=== PATIENT | male | born 1955 | race Caucasian/White ===

== ENCOUNTER 2020-01-02 15:29 | Outpatient (CLI) | payer OTHER, SELFPAY ==
--- NOTE | ~2020-01-02 | US_ITS ---
EXAMINATION: US art doppler w press LE BI DATE: 01/02/2020 15:21 INDICATION: Lower limb claudication TECHNIQUE: Segmental pressures and plethysmographic and Doppler waveforms of the brachial and lower e xtremity arteries were obtained. COMPARISON: None. FINDINGS: Right and left brachial artery pressures of 122 mm Hg and 125 mm Hg, respectively, are concordant (no rmal difference <= 30 mmHg). The right and left high-thigh pressure indices are 1.42 and 1.24, respec tively (normal > 1.2). The right ankle-brachial index (EILEEN) is 1.20 (normal >= 0.9-1). The right great toe-brachial index (T BI) is 0.47 (normal >= 0.6-0.8). The right lower extremity segmental pressure gradients are normal (n ormal gradients <= 20-30 mmHg between adjacent levels on the same leg or the same levels on the two l egs). Arterial waveforms are biphasic with brisk systolic upstrokes throughout. The left EILEEN is 0.97. The left TBI is 0.32. The left lower extremity segmental pressure gradients are decreased at the left dorsalis pedis artery and the contralateral right dorsalis pedis artery. Arter ial waveforms are biphasic at the left common femoral, superficial femoral and popliteal arteries. Pe lvis a tardus waveforms with dampened, mildly delayed systolic peaks at the left posterior tibial and dorsalis pedis arteries. IMPRESSION: 1. 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 Reviewed, dictated and finalized at location A. HANGER IMPRESSION: 1. Arterial occlusive disease in both lower limbs with mildly decreased right a nd moderately decreased left TBI's.
== END 2020-01-02 15:30 | disposition home or self-care (01) ==
PROVIDERS: PCP Family Medicine; Visit Provider Internal Medicine Cardiovascular Disease
DX: I73.9 Peripheral vascular disease, unspecified (principal)
CPT/HCPCS: 93923

== ENCOUNTER 2020-05-22 16:45 | Emergency (ER) | payer OTHER, SELFPAY ==
--- NOTE | ~2020-05-22 | XR_ITS ---
EXAMINATION: XR chest 1V portable INDICATION: Fever and chills TECHNIQUE: Portable AP chest at 1750 hours COMPARISON: 07/02/2016 FINDINGS: A 1.3 cm nodular opacity projects in the left lung base. There is no pleural effusion or pn eumothorax. The heart size is normal. There appear to be coronary artery stents. The visualized osseo us structures are unremarkable. IMPRESSION: 1. Nodular opacity of the left lung base which may be infectious or inflammatory. Recommend followup radiographs in 10-14 days after appropriate therapy to evaluate for improvement/resolution. Reviewed, dictated and finalized at location A. IMPRESSION: 1. Nodular opacity of the left lung base which may be infectious or inflammator y. Recommend followup radiographs in 10-14 days after appropriate therapy to ev aluate for improvement/resolution.
--- NOTE | 2020-05-22 17:04 | ECG_ITS ---
Measurements Intervals [place] Rate: 83 P: 31 TN: 136 QRS: 27 QRSD: 84 T: 60 QT: 336 QTc: 395 Interpretive Statements SINUS RHYTHM NORMAL ECG Electronically Signed On 05-22-2020 19:32:09 CDT by Jacky Ruiz D.O.
[2020-05-22 17:05] VITALS: BP 128/72; PULSE 87; RESP 18; TEMP 38.7; O2SAT 98
[2020-05-22 17:32] LABS: Basophils Percent Auto 0.2 % (0.2-1.2); Eosinophils Absolute Auto 0.1 K/mm3 (0-0.3); Eosinophils Percent Auto 0.8 % (0-4.4); Hematocrit 45.1 % (42.0-52.0); Hemoglobin 15.1 g/dL (14.0-18.0); Immature Granulocyte Absolute 0.08 K/mm3 (0.00-0.031); Immature Granulocyte Percent A 0.6 % (0-0.5); Lymphocytes Absolute Auto 0.54 K/mm3 (0.9-3.2); Lymphocytes Percent Auto 4.1 % (18.3-44.2); Mean Corpuscular HGB Conc 33.5 g/dl (32-36); Mean Corpuscular Hemoglobin 30.1 pg (26-34); Mean Platelet Volume 9.7 fl (7.4-10.4); Monocytes Absolute Auto 0.7 K/mm3 (0.1-0.6); Monocytes Percent Auto 5.1 % (2.6-8.5); Neutrophils Absolute Auto 11.7 K/mm3 (1.3-6.7); Neutrophils Percent Auto 89.2 % (45.5-73.1); Platelet Count Result 259 k/mm3 (150-375); Red Blood Count 5.01 M/mm3 (4.6-6.20); Red Cell Distribution Width 12.5 % (11.5-14.5); White Blood Count 13.2 K/mm3 (4.5-10.0)
[2020-05-22 17:39] LABS: Add Urine Microscopic? NO; Appearance Urine Clear (Clear); Bilirubin Urine Negative (Negative); Blood Urine Negative (Negative); Color Urine Yellow (Yellow); Glucose Urine UA Negative (Negative); Ketones Urine Negative (Negative); Leukocyte Esterase Ur Negative LEU/UL (Negative); Nitrate Urine Negative (Negative); Protein Urine Negative (Negative); Specific Grav Ur 1.018 (1.001-1.035); Urobilinogen Urine Negative mg/dL (<2.0)
[2020-05-22 17:41] LABS: INR 1.2; Prothrombin Time 14.5 Seconds (11.1-14.7)
[2020-05-22 17:42] LABS: Partial Thromboplastin Time 39.4 SECONDS (22.3-36.8)
[2020-05-22 17:47] LABS: Alanine Aminotransferase 21 U/L (4-50); Albumin Level 4.4 g/dL (3.5-5.1); Alkaline Phosphatase 95 U/L (38-126); Aspartate Amino Transferase 27 U/L (17-59); Bilirubin,Total 0.4 mg/dL (0.2-1.3); Blood Urea Nitrogen 14 mg/dL (9-20); CRP 3.9 mg/dL (<1.0); Calcium 8.8 mg/dL (8.4-10.2); Carbon Dioxide 26 mmol/L (22-30); Chloride 100 mmol/L (98-107); Estimated CRCL calculation 74 ml/min; Estimated Glomerular Filt Rate > 60; Glucose 111 mg/dL (75-110); Potassium 3.9 mmol/L (3.4-5.0); Sodium 134 mmol/L (137-145)
[2020-05-22 17:56] LABS: Troponin I < 0.012 ng/mL (0.000-0.034)
--- NOTE | 2020-05-22 18:17 | ED.FEVER ---
HPI - Fever General Chief Complaint: Fever Stated Complaint: fever, chills, Time Seen by Provider: 05/22/20 17:54 History of Present Illness HPI Narrative: Fever for about the past 24 hours. No associated symptoms. Does report hematuria without dysuria about 1 week ago. He has h/o BPH and UTI. There have been cases of COVID-[address] of employment. No cough, congestion, SOB, nausea, vomiting, abdomianl pain, rash. Related Data Home Medications Medication Instructions Recorded Confirmed amlodipine 05/22/20 clopidogrel 05/22/20 lisinopril 05/22/20 metformin mg 05/22/20 rosuvastatin mg 05/22/20 Allergies Allergy/AdvReac Type Severity Reaction Status Date / Time alcohol Allergy Severe Unknown Verified 05/22/20 17:11 ibuprofen Allergy Severe Unknown Verified 05/22/20 17:11 meperidine Allergy Severe DAUGHTER Verified 05/22/20 17:11 HAD GENETIC ADVERSE REACTION morphine Allergy Severe SYSTEM Verified 05/22/20 17:11 STARTED TO SHUT DOWN ANESTHESIA SEP 2012 AdvReac Intermediate BP Uncoded 05/22/20 17:11 ELEVATION--STILL ELEVATED Review of Systems Review of Systems: All systems reviewed & are unremarkable except as noted in HPI and below PMFSH Social History Social History Gender identity (if verbalized by the patient): Male Exam Const: General: healthy appearing, no acute distress and alert Orientation/consciousness: patient oriented x3 HENMT: Head: normal to inspection Neck: Neck: normal visual inspection and no lymphadenopathy Chest: Chest palpation & inspection: no tenderness Resp: Effort & Inspection: normal respiratory effort Auscultation: clear to auscultation bilaterally, no rales, no rhonchi and wheezes left lower Cardio: Jugular venous distension: no JVD Rate: regular rate Rhythm: regular rhythm Heart sounds: no murmurs GI: Inspection: non-distended GI Palp: Yes Soft to palpation and No Tenderness to palpation present (GI) Skin: General skin exam: normal color Neuro: General: patient oriented x3 and moves all extremities Speech: normal speech Extrem: General: no edema Psych: Appearance: well kempt Affect: normal affect Course Vital Signs Vital signs: Vital Signs Temperature 38.7 C H 05/22/20 17:05 Pulse Rate 87 05/22/20 17:05 Respiratory Rate 18 05/22/20 17:05 Blood Pressure 128/72 05/22/20 17:05 Pulse Oximetry 98 05/22/20 17:05 Temperature 38.7 C H 05/22/20 17:05 Pulse Rate 87 05/22/20 17:05 Respiratory Rate 18 05/22/20 17:05 Blood Pressure 128/72 05/22/20 17:05 Pulse Oximetry 98 05/22/20 17:05 MDM - Fever MDM Narrative Medical decision making narrative: CXR shows nodular opacities concerning infection. I will start azithromycin and swab for COVID-19 Differential Diagnosis Differential diagnosis: Likely community acquired pneumonia Medical Records Attestation: I reviewed the patient's medical records. Lab Data Attestation: I reviewed the patient's lab results. Result diagrams: 05/22/20 17:18 05/22/20 17:18 Labs: Lab Results 05/22/20 05/22/20 05/22/20 Range/Units 17:18 17:18 17:18 WBC 13.2 H (4.5-10.0) K/mm3 RBC 5.01 (4.6-6.20) M/mm3 Hgb 15.1 (14.0-18.0) g/dL Hct 45.1 (42.0-52.0) % MCV 90.0 (80-100) fl MCH 30.1 (26-34) pg MCHC 33.5 (32-36) g/dl RDW 12.5 (11.5-14.5) % Plt Count 259 (150-375) k/mm3 MPV 9.7 (7.4-10.4) fl Immature Gran % (Auto) 0.6 H (0-0.5) % Neut % (Auto) 89.2 H (45.5-73.1) % Lymph % (Auto) 4.1 L (18.3-44.2) % [place] % (Auto) 5.1 (2.6-8.5) % Eos % (Auto) 0.8 (0-4.4) % Baso % (Auto) 0.2 (0.2-1.2) % Lymph # (Auto) 0.54 L (0.9-3.2) K/mm3 [place] # (Auto) 0.7 H (0.1-0.6) K/mm3 Eos # (Auto) 0.1 (0-0.3) K/mm3 Baso # (Auto) 0.0 (0.0-0.1) K/mm3 Abs Immat Gran (auto) 0.08 H (0.00-0.
[2020-05-22] MEDS: AZITHROMYCIN 250 MG TABLET 500 MG PO (18:22)
[2020-05-22 18:24] VITALS: BP 139/88; PULSE 90; RESP 18; TEMP 36.8; O2SAT 97
[2020-05-24 18:54] LABS: SARS-CoV-2 RNA PCR Negative
== END 2020-05-22 20:03 | disposition home or self-care (01) ==
PROVIDERS: Emergency Medicine; Emergency Provider Emergency Medicine; PCP Family Medicine
DX: J18.9 Pneumonia, unspecified organism (principal); Z20.828 Contact with and (suspected) exposure to other viral communicable diseases; N40.0 Benign prostatic hyperplasia without lower urinary tract symptoms; Z87.440 Personal history of urinary (tract) infections
CPT/HCPCS: 36415; 71045; 80053; 81003; 83605; 84484; 85025; 85610; 85730; 86140; 87040; 87635; 93005; 99284; A9270; C9803; U0003

== ENCOUNTER 2022-04-11 08:27 | Outpatient (CLI) | payer MEDICARE, SELFPAY ==
--- NOTE | ~2022-04-11 | US_ITS ---
EXAMINATION: US art doppler w press LE BI DATE: 04/11/2022 10:05 INDICATION: Peripheral arterial occlusive disease presenting with claudication. Peripheral vascular d isease risk factors of diabetes, hypercholesterolemia and prior smoking. TECHNIQUE: Segmental pressures and plethysmographic and Doppler waveforms of the brachial and lower e xtremity arteries were obtained. COMPARISON: None. FINDINGS: Right and left brachial artery pressures of 122 mm Hg and 114 mm Hg, respectively, are concordant (no rmal difference <= 30 mmHg). The right and left high-thigh pressure indices are 1.11 and 1.04, respec tively (normal > 1.2). The right ankle-brachial index (EILEEN) is 0.89 (normal >= 0.9-1). The right great toe-brachial index (T BI) is 0.20 (normal >= 0.6-0.8). The right lower extremity segmental pressure gradients are increased between the right above and [id number] popliteal arteries (normal gradients <= 20-30 mmHg betwee n adjacent levels on the same leg or the same levels on the two legs). Arterial waveforms are biphasi c with brisk systolic upstrokes throughout the arteries of the right lower limb. The left EILEEN is 0.70. The left TBI is 0.04. The left lower extremity segmental pressure gradients are increased between the left dorsalis pedis artery and each of the left [id number] popliteal arter y, left posterior tibial artery and contralateral right dorsalis pedis artery. Arterial waveforms are biphasic with mildly delayed upstrokes at the left posterior tibial and dorsalis pedis arteries and with brisk systolic upstrokes at the more proximal arteries of the left lower limb. IMPRESSION: 1. Peripheral arterial occlusive disease with mildly decreased bilateral ABIs and high thigh pressure indices but with severely decreased left and moderate to severely decreased right toe brachial indic es. Reviewed, dictated and finalized at location A. IMPRESSION: 1. Peripheral arterial occlusive disease with mildly decreased bilateral ABIs a nd high thigh pressure indices but with severely decreased left and moderate to severely decreased right toe brachial indices.
== END 2022-04-11 08:28 | disposition home or self-care (01) ==
PROVIDERS: PCP Family Medicine; Visit Provider Internal Medicine Cardiovascular Disease
DX: I70.221 Atherosclerosis of native arteries of extremities with rest pain, right leg (principal)
CPT/HCPCS: 93923

== ENCOUNTER 2022-06-12 08:11 | Outpatient (CLI) | payer MEDICARE, SELFPAY ==
[2022-06-12 08:27] LABS: Basophils Percent Auto 0.4 % (0.2-1.2); Eosinophils Absolute Auto 0.3 K/mm3 (0-0.3); Eosinophils Percent Auto 4.3 % (0-4.4); Hematocrit 45.3 % (42.0-52.0); Hemoglobin 14.9 g/dL (14.0-18.0); Immature Granulocyte Absolute 0.03 K/mm3 (0.00-0.031); Immature Granulocyte Percent A 0.4 % (0-0.5); Lymphocytes Absolute Auto 1.92 K/mm3 (0.9-3.2); Lymphocytes Percent Auto 24.2 % (18.3-44.2); Mean Corpuscular HGB Conc 32.9 g/dl (32-36); Mean Corpuscular Hemoglobin 29.9 pg (26-34); Mean Corpuscular Volume 90.8 fl (80-100); Mean Platelet Volume 9.4 fl (7.4-10.4); Monocytes Absolute Auto 0.7 K/mm3 (0.1-0.6); Monocytes Percent Auto 9.2 % (2.6-8.5); Neutrophils Absolute Auto 4.9 K/mm3 (1.3-6.7); Neutrophils Percent Auto 61.5 % (45.5-73.1); Platelet Count Result 273 k/mm3 (150-375); Red Blood Count 4.99 M/mm3 (4.6-6.20); Red Cell Distribution Width 12.7 % (11.5-14.5); White Blood Count 7.9 K/mm3 (4.5-10.0)
[2022-06-12 08:37] LABS: Alanine Aminotransferase 25 U/L (6-50); Albumin Level 4.6 g/dL (3.5-5.1); Alkaline Phosphatase 66 U/L (38-126); Anion Gap 5 mmol/L (8-16); Aspartate Amino Transferase 26 U/L (17-59); Bilirubin,Total 0.5 mg/dL (0.2-1.3); Blood Urea Nitrogen 15 mg/dL (9-20); Calcium 8.8 mg/dL (8.4-10.2); Carbon Dioxide 31 mmol/L (22-30); Chloride 101 mmol/L (98-107); Estimated Glomerular Filt Rate > 60; Glucose 129 mg/dL (65-110); Potassium 4.2 mmol/L (3.4-5.0); Sodium 137 mmol/L (137-145)
== END 2022-06-12 08:12 | disposition home or self-care (01) ==
PROVIDERS: PCP Family Medicine; Visit Provider Internal Medicine Cardiovascular Disease
DX: I73.9 Peripheral vascular disease, unspecified (principal); Z51.81 Encounter for therapeutic drug level monitoring; Z79.899 Other long term (current) drug therapy
CPT/HCPCS: 36415; 80053; 85025

== ENCOUNTER 2022-09-04 09:03 | Outpatient (CLI) | payer MEDICARE, SELFPAY ==
[2022-09-04 09:44] LABS: Basophils Percent Auto 0.5 % (0.2-1.2); Eosinophils Absolute Auto 0.3 K/mm3 (0-0.3); Eosinophils Percent Auto 3.4 % (0-4.4); Hematocrit 45.8 % (42.0-52.0); Immature Granulocyte Absolute 0.05 K/mm3 (0.00-0.031); Immature Granulocyte Percent A 0.6 % (0-0.5); Lymphocytes Absolute Auto 2.08 K/mm3 (0.9-3.2); Lymphocytes Percent Auto 26.4 % (18.3-44.2); Mean Corpuscular HGB Conc 32.8 g/dl (32-36); Mean Corpuscular Hemoglobin 29.9 pg (26-34); Mean Corpuscular Volume 91.2 fl (80-100); Mean Platelet Volume 9.7 fl (7.4-10.4); Monocytes Absolute Auto 0.8 K/mm3 (0.1-0.6); Monocytes Percent Auto 9.5 % (2.6-8.5); Neutrophils Absolute Auto 4.7 K/mm3 (1.3-6.7); Neutrophils Percent Auto 59.6 % (45.5-73.1); Platelet Count Result 244 k/mm3 (150-375); Red Blood Count 5.02 M/mm3 (4.6-6.20); Red Cell Distribution Width 12.3 % (11.5-14.5); White Blood Count 7.9 K/mm3 (4.5-10.0)
[2022-09-04 09:53] LABS: Alanine Aminotransferase 36 U/L (6-50); Albumin Level 4.4 g/dL (3.5-5.1); Alkaline Phosphatase 68 U/L (38-126); Anion Gap 11 mmol/L (8-16); Aspartate Amino Transferase 30 U/L (17-59); Bilirubin,Total 0.5 mg/dL (0.2-1.3); Blood Urea Nitrogen 20 mg/dL (9-20); Calcium 8.9 mg/dL (8.4-10.2); Carbon Dioxide 29 mmol/L (22-30); Chloride 98 mmol/L (98-107); Estimated Glomerular Filt Rate > 60; Glucose 170 mg/dL (65-110); Potassium 4.2 mmol/L (3.4-5.0); Sodium 138 mmol/L (137-145)
== END 2022-09-04 09:04 | disposition home or self-care (01) ==
PROVIDERS: PCP Family Medicine; Visit Provider Internal Medicine Cardiovascular Disease
DX: Z01.812 Encounter for preprocedural laboratory examination (principal); I73.9 Peripheral vascular disease, unspecified; I10 Essential (primary) hypertension
CPT/HCPCS: 36415; 80053; 85025

== ENCOUNTER 2022-09-18 00:18 | Emergency (ER) | payer MEDICARE, SELFPAY ==
[2022-09-18 00:27] VITALS: BP 173/94; PULSE 78; RESP 18; TEMP 36.3; O2SAT 100
--- NOTE | 2022-09-18 01:05 | ED.GENADULT ---
HPI - General Adult General Chief complaint: Unspecified Stated complaint: Post/op complications Time Seen by Provider: 09/18/22 01:05 History of Present Illness HPI narrative: Patient is a 67-year-old male presenting with groin swelling. Patient states that he recently had angioplasty and they entered in his left groin. This was approximately 1 week ago. Patient noticed swelling in his left groin a couple days afterwards so he was seen in the clinic and they told him to keep an eye on it. The bruising has resolved but the patient states that the swelling worsened again tonight so he came in for evaluation. States that the area feels full and uncomfortable but denies outright pain. No numbness or weakness. Denies chest pain or shortness of breath. Denies further complaints. Related Data Home Medications Medication Instructions Recorded Confirmed amlodipine 10 mg tablet 05/22/20 clopidogrel 75 mg tablet 05/22/20 lisinopril 5 mg tablet 05/22/20 metformin 500 mg tablet mg 05/22/20 carvedilol 12.5 mg tablet mg 09/18/22 09/18/22 evolocumab 420 mg/3.5 mL mg subcut 09/18/22 subcutaneous wearable injector (Repatha Pushtronex) rivaroxaban 2.5 mg tablet (Xarelto) mg 09/18/22 Allergies Allergy/AdvReac Type Severity Reaction Status Date / Time alcohol Allergy Severe Unknown Verified 09/18/22 01:05 ibuprofen Allergy Severe Unknown Verified 09/18/22 01:05 meperidine Allergy Severe DAUGHTER Verified 09/18/22 01:05 HAD GENETIC ADVERSE REACTION morphine Allergy Severe SYSTEM Verified 09/18/22 01:05 STARTED TO SHUT DOWN ANESTHESIA SEP 2012 AdvReac Intermediate BP Uncoded 09/18/22 01:05 ELEVATION--STILL ELEVATED Review of Systems Review of Systems: All systems reviewed & are unremarkable except as noted in HPI and below PMFSH Social History Social History Gender identity (if verbalized by the patient): Male Exam Narrative: GENERAL: Well-appearing, well-nourished, and in no acute distress. HEAD: Normocephalic, atraumatic. EYES: PERRLA and EOMI. ENT: Nares clear, no rhinorrhea or epistaxis. Mucous membranes moist. NECK: Supple. CHEST: Clear to auscultation. No respiratory distress. HEART: Regular rate and rhythm. No murmur heard. Normal peripheral pulses. ABDOMEN: Soft, nontender, nondistended, normal active bowel sounds. EXTREMITIES: swelling in left groin, nontender, mild overlying erythema, no ecchymoses, SKIN: Warm, dry, no rash. NEURO: No focal deficits. Alert and oriented x3. PSYCH: Normal mood and affect. Course Course Emergency Course: Patient is a 67-year-old male presenting with left groin pain in the setting of recent lower extremity angioplasty. Vitals are within normal limits. Exam is remarkable for the above. He is neurovascularly intact. As it is overnight, we do not have ultrasound techs for ultrasound to evaluate for pseudoaneurysm. We can schedule him for outpatient ultrasound in 5 hours when the imaging center opens. I spoke with his circulation assistant's office who agrees with this plan. Patient provided with an order for outpatient duplex. He is scheduled for the 7:30 AM appointment slot. Patient and his voiced understanding and are agreeable with the plan. Appropriate return precautions given. Patient discharged in stable condition. Vital Signs Vital signs: Vital Signs Temperature 97.3 F L 09/18/22 00:27 Pulse Rate 78 09/18/22 00:27 Respiratory Rate 18 09/18/22 00:27 Blood Pressure 173/94 H 09/18/22 00:27 Pulse Oximetry 100 09/18/22 00:27 Oxygen Delivery Room Air 09/18/22 00:27 Temperature 97.3 F L 09/18/22 00:27 Pulse Rate 78 09/18/22 00:27 Respiratory Rate 18 09/18/22 00:27 Blood Pressure 173/94 H 09/18/22 00:27 Pulse Oximetry 100 09/18/22 00:27 Oxygen Delivery Room Air 09/18/22 00:27 Medical Decision Making Vital Signs Vital Si
== END 2022-09-18 02:33 | disposition home or self-care (01) ==
PROVIDERS: Emergency Provider Emergency Medicine; PCP Family Medicine
DX: R22.2 Localized swelling, mass and lump, trunk (principal); Z98.62 Peripheral vascular angioplasty status
CPT/HCPCS: 93926; 99281

== ENCOUNTER 2022-09-18 08:52 | Outpatient (CLI) | payer MEDICARE, OTHER, SELFPAY ==
--- NOTE | ~2022-09-18 | US_ITS ---
EXAMINATION: US arterial duplex [facility] DATE: 09/18/2022 09:32 INDICATION: Left groin swelling post recent catheterization. TECHNIQUE: Multiple grayscale and Doppler ultrasound images of the left groin were obtained. COMPARISON: None FINDINGS: Left common femoral, femoral and profunda femoral veins appears patent with normal directional flow a nd venous waveforms. The left common femoral, superficial femoral and profunda femoral arteries appea r normal with triphasic waveforms with brisk systolic upstrokes. No pseudoaneurysm. Suggestion of ayana e subcutaneous edema at the region of concern. No abnormal masses or fluid collections identified. IMPRESSION: 1. No pseudoaneurysm, abnormal masses or hematoma at the region of concern. Reviewed, dictated and finalized at location A.
== END 2022-09-18 08:53 | disposition home or self-care (01) ==
PROVIDERS: PCP Family Medicine; Visit Provider Internal Medicine Cardiovascular Disease
DX: R19.09 Other intra-abdominal and pelvic swelling, mass and lump (principal); M79.89 Other specified soft tissue disorders
CPT/HCPCS: 93926

== ENCOUNTER 2023-07-20 00:44 | Day surgery (SDC) | payer MEDICARE, SELFPAY ==
[2023-07-13 09:34] VITALS: BMI 27.0
[2023-07-20 09:31] VITALS: BP 136/75; PULSE 61; RESP 20; TEMP 36.2; O2SAT 99
--- NOTE | 2023-07-20 09:38 | P.PNAN_ITS ---
Anes - Initial Pre Proc Eval Procedure: Operation Date: 07/20/23 10:45 Proposed Procedures p Screening Colonoscopy - Barry Wills MD Date/Time: 07/20/23 09:38 Surgeon: Barry Wills MD Pre Op Diagnosis: neoplasm screening Patient Data Age: 68 Gender: M Height: 1.7 m Weight: 74.6 kg Last Vital Signs Temp 36.2 C L 07/20/23 09:31 Pulse 61 07/20/23 09:31 Resp 20 07/20/23 09:31 BP 136/75 07/20/23 09:31 Pulse Ox 99 07/20/23 09:31 O2 Del Method Room Air 07/20/23 09:31 Allergies Allergy/AdvReac Type Severity Reaction Status Date / Time alcohol Allergy Severe Other Verified 07/20/23 09:29 ibuprofen Allergy Severe Other Verified 07/20/23 09:29 meperidine Allergy Severe DAUGHTER Verified 07/20/23 09:29 HAD GENETIC ADVERSE REACTION morphine Allergy Severe SYSTEM Verified 07/20/23 09:29 STARTED TO SHUT DOWN ANESTHESIA SEP 2012 Allergy Intermediate BP Uncoded 07/20/23 09:29 ELEVATION--STILL ELEVATED Home Medications Medication Instructions Recorded Confirmed Type amlodipine 10 mg tablet 10 mg PO DAILY 05/22/20 07/13/23 History clopidogrel 75 mg tablet 75 mg PO DAILY 05/22/20 07/20/23 History lisinopril 5 mg tablet 5 mg PO DAILY 05/22/20 07/13/23 History metformin 500 mg tablet 500 mg PO DAILY 05/22/20 07/13/23 History carvedilol 12.5 mg tablet 25 mg PO BID 09/18/22 07/13/23 History rosuvastatin 40 mg tablet 40 mg PO DAILY 07/13/23 07/13/23 History Patient hx anesthesia problems: none Family hx anesthesia problems: none Results Review: All pre-operative results and documents have been reviewed as part of the pre- operative evaluation. [facility] [place] Past Medical History Medical History (Updated 07/20/23 @ 09:38 by Mauro Rivera MD) CAD (coronary artery disease) Myocardial infarct Surgical History Surgical History (Updated 07/20/23 @ 09:38 by Mauro Rivera MD) History of coronary artery stent placement Social History Social History Years smoked: 30 Smoking status: Former smoker Tobacco type: cigarettes Alcohol intake: current Substance use: never Substance use type: does not use Living arrangements: with family Gender identity (if verbalized by the patient): Male Spiritual care concerns: No Anes - Eval Final PreProcedure Day of Procedure 07/20/23 09:38 Patient weight: normal Heart: regular rate and rhythm Lungs: clear to auscultation Airway: Mallampati scale class II Neurological: alert and oriented Last oral intake: >/= 8 hours ASA classification: III Emergent: no Anesthetic plan: proceed Anesthesia type and monitoring: general GIVS and standard monitoring Results Review: All pre-operative results and documents have been reviewed as part of the pre- operative evaluation. Informed Consent: The patient's anesthetic plan and its attendant risks and benefits were discussed with the patient/family/POA. Questions were solicited and answers provided to the satisfaction of the patient/family/POA.
--- NOTE | 2023-07-20 09:42 | PM.HPGS ---
History of Present Illness History of Present Illness Consent: Risks, benefits, and alternatives have been discussed and questions answered. Patient agrees to proceed with procedure. Chief complaint: neoplasm screening Narrative: Karri Hadley is a 68 year old male Referred for colon cancer screening. Review of Systems Review of Systems: All systems reviewed & are unremarkable except as noted in HPI and below PMFSH Past Medical History Medical History CAD (coronary artery disease) Myocardial infarct Surgical History Surgical History History of coronary artery stent placement Social History Social History Years smoked: 30 Smoking status: Former smoker Tobacco type: cigarettes Alcohol intake: current Substance use: never Substance use type: does not use Living arrangements: with family Gender identity (if verbalized by the patient): Male Spiritual care concerns: No Meds Home Medications and Allergies Home Medications Medication Instructions Recorded Confirmed Type amlodipine 10 mg tablet 10 mg PO DAILY 05/22/20 07/13/23 History clopidogrel 75 mg tablet 75 mg PO DAILY 05/22/20 07/20/23 History lisinopril 5 mg tablet 5 mg PO DAILY 05/22/20 07/13/23 History metformin 500 mg tablet 500 mg PO DAILY 05/22/20 07/13/23 History carvedilol 12.5 mg tablet 25 mg PO BID 09/18/22 07/13/23 History rosuvastatin 40 mg tablet 40 mg PO DAILY 07/13/23 07/13/23 History Allergies Allergy/AdvReac Type Severity Reaction Status Date / Time alcohol Allergy Severe Other Verified 07/20/23 09:29 ibuprofen Allergy Severe Other Verified 07/20/23 09:29 meperidine Allergy Severe DAUGHTER Verified 07/20/23 09:29 HAD GENETIC ADVERSE REACTION morphine Allergy Severe SYSTEM Verified 07/20/23 09:29 STARTED TO SHUT DOWN ANESTHESIA SEP 2012 Allergy Intermediate BP Uncoded 07/20/23 09:29 ELEVATION--STILL ELEVATED Vital Signs Vital Signs - 24 hr 07/20/23 09:31 Temperature 36.2 C L Pulse Rate 61 Respiratory Rate 20 Blood Pressure 136/75 Pulse Oximetry 99 Oxygen Delivery Room Air Exam Const: General: alert Orientation/consciousness: patient oriented x3 Resp: Auscultation: clear to auscultation bilaterally Cardio: Rhythm: regular rhythm GI: GI Palp: Yes Soft to palpation and No Tenderness to palpation present (GI) Neuro: General: patient oriented x3 Assessment and Plan Assessment and plan (1) Colon cancer screening: Code(s): Z12.11 - Encounter for screening for malignant neoplasm of colon Status: Acute Assessment and Plan: Colonoscopy with possible biopsy or polypectomy or cautery or injection of substances.
[2023-07-20] MEDS: LACTATED RINGERS 1,000 ML 150 ML IV CONT (09:43)
[2023-07-20 09:47] LABS: Glucose Point of Care 94 mg/dl (65-105)
[2023-07-20 10:24] VITALS: BP 106/68; PULSE 61; RESP 22; O2SAT 97
[2023-07-20 10:34] VITALS: BP 105/67; PULSE 68; RESP 29; O2SAT 98
[2023-07-20 10:44] VITALS: BP 118/76; PULSE 63; RESP 19; O2SAT 99
== END 2023-07-20 10:50 | disposition home or self-care (01) ==
PROVIDERS: PCP Family Medicine; Visit Provider Internal Medicine Gastroenterology
PROC: 0DJD8ZZ Inspection of Lower Intestinal Tract, Via Natural or Artificial Opening Endoscopic (ICD-10-PCS; CPT 45378; principal; 2023-07-20 10:45)
DX: Z12.11 Encounter for screening for malignant neoplasm of colon (principal); K64.8 Other hemorrhoids; I25.10 Atherosclerotic heart disease of native coronary artery without angina pectoris; I25.2 Old myocardial infarction; E88.09 Other disorders of plasma-protein metabolism, not elsewhere classified; Z87.891 Personal history of nicotine dependence; Z79.02 Long term (current) use of antithrombotics/antiplatelets; Z79.84 Long term (current) use of oral hypoglycemic drugs; Z95.5 Presence of coronary angioplasty implant and graft
CPT/HCPCS: G0121; 82948; J2704; J7120

== ENCOUNTER 2023-12-18 08:01 | Emergency (ER) | payer MEDICARE, SELFPAY ==
--- NOTE | ~2023-12-18 | XR_ITS ---
EXAMINATION: XR thoracic spine 3V DATE: 12/18/2023 08:39 INDICATION: Mid to lower thoracic spine pain post fall TECHNIQUE: One AP, lateral and lateral swimmer's views of the thoracic spine were obtained. COMPARISON: None. FINDINGS: 7 degrees thoracic levocurvature. Mild thoracic kyphosis. Chronic appearing mild anterior wedging at T6-T8 with intervening moderate disc height loss. There is mild disc height loss throughout much of t he remaining thoracic spine. No acute-appearing fractures identified. Visualized portion of the lungs are clear with no pleural effusion or pneumothorax. Heart size is normal. IMPRESSION: 1. Mild to moderate mid thoracic predominant spondylosis. 2. Mild with thoracic kyphosis and mild levocurvature with chronic appearing mild anterior wedging of a few mid thoracic vertebral bodies. Reviewed, dictated and finalized at location A. LATORY COMPLIANCE SPECIALIST IMPRESSION: 1. Mild to moderate mid thoracic predominant spondylosis. 2. Mild with thoracic kyphosis and mild levocurvature with chronic appearing mi ld anterior wedging of a few mid thoracic vertebral bodies.
--- NOTE | 2023-12-18 08:05 | ED.GENADULT ---
HPI - General Adult General Chief complaint: Back Pain/Injury Stated complaint: BACK INJURY Source: patient, RN notes reviewed and old records reviewed Mode of arrival: ambulatory Limitations: no limitations History of Present Illness HPI narrative: 5-year-old male presents to [facility] with complaint of mid to lower back pain that started yesterday of cough. Patient states slipped on ice and hit back on concrete step. Patient taking naproxen with no relief. MD complaint: Back pain Onset (ago): day(s) (1) Location: back Severity: moderate Quality: sharp Pain Consistency: constant Treatments prior to arrival: NSAID Related Data Home Medications Medication Instructions Recorded Confirmed amlodipine 10 mg tablet 10 mg PO DAILY 05/22/20 12/18/23 clopidogrel 75 mg tablet 75 mg PO DAILY 05/22/20 12/18/23 lisinopril 5 mg tablet 5 mg PO DAILY 05/22/20 12/18/23 metformin 500 mg tablet 500 mg PO DAILY 05/22/20 12/18/23 carvedilol 12.5 mg tablet 25 mg PO BID 09/18/22 12/18/23 rosuvastatin 40 mg tablet 40 mg PO DAILY 07/13/23 12/18/23 cilostazol 50 mg tablet 50 mg PO BID 12/18/23 12/18/23 empagliflozin 25 mg tablet 25 mg PO DAILY 12/18/23 12/18/23 (Jardiance) Allergies Allergy/AdvReac Type Severity Reaction Status Date / Time alcohol Allergy Severe Other Verified 07/20/23 09:29 ibuprofen Allergy Severe Other Verified 07/20/23 09:29 meperidine Allergy Severe DAUGHTER Verified 07/20/23 09:29 HAD GENETIC ADVERSE REACTION morphine Allergy Severe SYSTEM Verified 07/20/23 09:29 STARTED TO SHUT DOWN ANESTHESIA SEP 2012 Allergy Intermediate BP Uncoded 07/20/23 09:29 ELEVATION--STILL ELEVATED Review of Systems Constitutional: Constitutional: Reports no additional constitutional complaints, Denies body ache(s), Denies chills, Denies fatigue, Denies fever(s) and Denies headache(s) Eyes: Eyes: Reports no additional eye complaints and Denies blurry vision ENT: Reports system reviewed and no additional complaints, except as documented, Denies vertigo, Denies dizziness, Denies ear discharge, Denies otalgia, Denies facial pain, Denies headache(s), Denies nasal congestion, Denies nasal discharge, Denies sinus pain, Denies sinus pressure and Denies sore throat Cardiovascular: Cardiovascular: Reports no additional cardiovascular complaints, Denies chest pain, Denies chest pain at rest, Denies rapid heart rate and Denies dyspnea Respiratory: Respiratory: Reports no additional respiratory complaints, Denies chest congestion, Denies cough, Denies pain on inspiration, Denies pain with cough and Denies dyspnea Gastrointestinal: Gastrointestinal: Denies abdominal pain, Denies diarrhea, Denies nausea and Denies vomiting Musculoskeletal: Musculoskeletal: Reports back pain Integumentary/Breasts: Skin/Breast: Denies rash Neurologic: Reports system reviewed and no additional complaints, except as documented, Denies vertigo, Denies dizziness and Denies headache(s) Endocrine: Endocrine: Denies fatigue [facility] Past Medical History Medical History CAD (coronary artery disease) Myocardial infarct Surgical History Surgical History History of coronary artery stent placement Social History Social History Years smoked: 30 Smoking status: Former smoker Tobacco type: cigarettes Alcohol intake: current Substance use: never Substance use type: does not use Living arrangements: with family Gender identity (if verbalized by the patient): Male Spiritual care concerns: No Comments At the time of my signature, I reviewed and agree with the nursing past medical, surgical, social, and family history. There is no relevant family history pertinent to the patient complaint. Exam Const: General: cooperative, healthy appearing, no
[2023-12-18 08:11] VITALS: BP 121/80; PULSE 61; RESP 16; TEMP 36.5; O2SAT 99
== END 2023-12-18 09:03 | disposition home or self-care (01) ==
PROVIDERS: Emergency Provider Registered Nurse; PCP Family Medicine
DX: S30.0XXA Contusion of lower back and pelvis, initial encounter (principal); W00.0XXA Fall on same level due to ice and snow, initial encounter; I25.10 Atherosclerotic heart disease of native coronary artery without angina pectoris; I25.2 Old myocardial infarction; Z95.5 Presence of coronary angioplasty implant and graft; Z87.891 Personal history of nicotine dependence
CPT/HCPCS: 72072; 99213; G0463

== ENCOUNTER 2024-10-02 08:59 | Emergency (ER) | payer MEDICARE, SELFPAY ==
--- NOTE | ~2024-10-02 | US_ITS ---
Limited Abdominal Sonogram: Real-time sonographic imaging of the right upper quadrant was performed. Clinical History: Abdominal pain, cholelithiasis Findings: The liver appears echogenic, with no evidence of mass lesion or bile duct dilatation. Main portal vein demonstrates normal direction of flow. The gallbladder is contracted, with echogenic gal lstones present. No definite gallbladder wall thickening. The common bile duct measures 5 mm. The vi sualized pancreas, aorta, and IVC are unremarkable. Impression: Diffuse fatty infiltration of the liver. Cholelithiasis. Reviewed, dictated and finalized at location M. TESTER Impression: Diffuse fatty infiltration of the liver. Cholelithiasis.
--- NOTE | ~2024-10-02 | CT_ITS ---
EXAMINATION: CT abdomen pelvis w con DATE: 10/02/2024 10:15 INDICATION: Right upper quadrant abdominal pain. Diarrhea. TECHNIQUE: Computed tomography (CT) of the abdomen and pelvis was performed with 100 mL Omnipaque 350 intravenous contrast. Automated exposure control and iterative reconstruction technique were employe d. The dose-length product was 515.56 mGy-cm. COMPARISON: CT abdomen and pelvis 10/02/2012 FINDINGS: The visualized portions of the lung bases are clear without pneumonia or pleural effusion. The heart size is normal. There are coronary artery calcifications. There is a trace pericardial effu ernie. There is a small sliding hiatal hernia. The liver and spleen are normal. There are gallstones i n the gallbladder, which is normal in size. The pancreas is normal. There is chronic thickening of th e adrenal glands, likely benign. There are cysts in the kidneys measuring up to 6.5 cm on the left. T he prostate is moderately enlarged. There are no dilated loops of bowel. The appendix is normal. Ther e are no pathologically enlarged lymph nodes. There is no free intraperitoneal fluid. There is calcif ied atherosclerosis of the aorta and many of the other arteries. There is severe lower lumbar spondyl osis. IMPRESSION: 1. Small sliding hiatal hernia. 2. Cholelithiasis. Reviewed, dictated and finalized at location A. SETTER
[2024-10-02 09:06] VITALS: BP 150/81; PULSE 70; RESP 16; TEMP 36.6; O2SAT 99
--- NOTE | 2024-10-02 09:07 | ED.ABDPAIN ---
HPI - Abdominal Pain General Chief Complaint: Abdominal Pain Stated Complaint: RUQ pain Time Seen by Provider: 10/02/24 09:01 Source: patient Mode of arrival: ambulatory Limitations: no limitations History of Present Illness HPI narrative: Patient is a 69 y/o female who presents to the ED with c/o right mid/ upper abdominal pain. Patient reports pain has been fairly constant over the last 5 days. Seems to be worse at night. He has been taking naproxen for the pain with some relief. Denies aggravation with eating. Reports diarrhea over the last 5 days, denies nausea, vomiting, fevers. He notes chronic issues with urination/frequent UTIs related to previous prostate surgeries, but denies current dysuria, hematuria. Denies hx of kidney stones. Related Data Home Medications Medication Instructions Recorded Confirmed amlodipine 10 mg tablet 10 mg PO DAILY 05/22/20 09/30/24 clopidogrel 75 mg tablet 75 mg PO DAILY 05/22/20 09/30/24 lisinopril 5 mg tablet 5 mg PO DAILY 05/22/20 09/30/24 metformin 500 mg tablet 500 mg PO DAILY 05/22/20 09/30/24 carvedilol 12.5 mg tablet 25 mg PO BID 09/18/22 09/30/24 rosuvastatin 40 mg tablet 40 mg PO DAILY 07/13/23 09/30/24 cilostazol 50 mg tablet 50 mg PO BID 12/18/23 09/30/24 Allergies Allergy/AdvReac Type Severity Reaction Status Date / Time alcohol Allergy Severe Other Verified 07/09/24 11:01 ibuprofen Allergy Severe Other Verified 07/09/24 11:01 meperidine Allergy Severe DAUGHTER Verified 07/09/24 11:01 HAD GENETIC ADVERSE REACTION morphine Allergy Severe SYSTEM Verified 07/09/24 11:01 STARTED TO SHUT DOWN ANESTHESIA SEP 2012 Allergy Intermediate BP Uncoded 07/09/24 11:01 ELEVATION--STILL ELEVATED Review of Systems Review of Systems: All systems reviewed & are unremarkable except as noted in HPI. All systems reviewed & are unremarkable except as noted in HPI and below PMFSH Past Medical History Medical History BPH (benign prostatic hyperplasia) CAD (coronary artery disease) Diabetes Hyperlipidemia Hypertension Myocardial infarct Neuropathy Peripheral vascular disease Proteinuria Surgical History Surgical History History of coronary artery stent placement Family History Family History Son Diabetes mellitus Social History Social History Years smoked: 30 Smoking status: Former smoker Tobacco type: cigarettes Alcohol intake: current Substance use: never Substance use type: does not use Do You Feel Safe in your Home?: Yes Lack of Transportation: No Lack of Food: Never True Current Housing: I Have Housing Concerned About Future Housing: No Difficulty Paying Gas/Electric Bills: No Difficulty Paying for Meds: No Currently Unemployed: No Education: Trade/Vocational Certificate Difficulty w/ Childcare or Family Care: No Living arrangements: with family Gender identity (if verbalized by the patient): Male Sexual Orientation (if Verbalized by the Patient): Straight or Heterosexual Spiritual care concerns: No Exam Narrative: GENERAL: Well appearing, well-nourished, non-toxic, in no acute distress. HEAD: Normocephalic, atraumatic. RESPIRATORY: Airway patent, respirations nonlabored. Clear to auscultation bilaterally, no rales, rhonchi, wheezing. CARDIOVASCULAR: Regular rate and rhythm without murmurs, rubs, or gallops. ABDOMINAL: Soft, TTP in RUQ, R mid abdomen, no significant epigastric or RLQ pain. Nondistended. Normoactive BS. MUSCULOSKELETAL: Moves all extremities. No gross deformities. SKIN: Warm, dry, normal color. NEURO: A&O X3. Speech clear. Cranial nerves II-XII grossly intact. Steady gait. No ataxic movements. PSYCHIATRIC: Appropriate mood and affect. Normal interaction. Course Vital Signs Vital signs: Vital Signs Temperature 98 F 10/02/24 09:06 Pulse Rate 70 10/02/24 09:06 Respiratory Rate 16 10/02/24 09:06 Blood Pressure 150/81 H 10/02/24 09:06 Pulse Oximetry 99 10/02/24 09:06 Temperature 98 F 10/02/24 09:06 Pulse Rate 65 10/02/24 11:01 Respiratory Rate 16 10/02/24 11:01 Blood Pressure 147/86 H 10/02/24 11:01 Pulse Oximetry 97 10/02/24 11:01 MDM - Abdominal Pain MDM Narrative Medical decision making narrative: Patient presented to ED with 5 day history of right mid to upper abdominal pain. Associated with diarrhea, no other significant symptoms. Vital signs are stable upon arrival. Patient is in no acute distress. He did not want anything for pain in the ED. Laboratory studies are fairly unremarkable. No leukocytosis or anemia. Blood glucose is mildly elevated to 312 on CMP. Patient does have history of diabetes and is on metformin. No evidence of DKA. Normal LFTs and lipase. Urinalysis with trace ketones, small amount of blood, no signs of infection. CT scan of abdomen/ pelvis was obtained and showing cholelithiasis, no evidence of cholecystitis. RUQ US obtained and no evidence of cholecystitis. Sx's consistent with biliary colic. Discussed lab and imaging findings with patient, low-fat diet, symptomatic control of pain, recommended to have close f/u with gen surg for further evaluation and potential future cholecystectomy. Discussed strict return precautions, signs and symptoms of cholecystitis. Patient voiced understanding, in agreement plan, feels comfortable discharge home. Will send short course of tramadol home for more severe pain. Discharged in stable condition. Medical Records Attestation: I reviewed the patient's medical records. Lab Data Attestation: I reviewed the patient's lab results. 10/02/24 09:22 10/02/24 09:22 Labs: Lab Results 10/02/24 10/02/24 Range/Units 09:15 09:22 WBC 6.0 (4.5-10.0) K/mm3 RBC 4.78 (4.6-6.20) M/mm3 Hgb 14.5 (14.0-18.0) g/dL Hct 43.2 (42.0-52.0) % MCV 90.4 (80-100) fl MCH 30.3 (26-34) pg MCHC 33.6 (32-36) g/dl RDW 11.9 (11.5-14.5) % Plt Count 206 (150-375) k/mm3 MPV 9.4 (7.4-10.4) fl Immature Gran % (Auto) 0.5 (0-0.5) % Neut % (Auto) 65.3 (45.5-73.1) % Lymph % (Auto) 21.7 (18.3-44.2) % [place] % (Auto) 8.5 (2.6-8.5) % Eos % (Auto) 3.5 (0-4.4) % Baso % (Auto) 0.5 (0.2-1.2) % Lymph # (Auto) 1.30 (0.9-3.2) K/mm3 [place] # (Auto) 0.5 (0.1-0.6) K/mm3 Eos # (Auto) 0.2 (0-0.3) K/mm3 Baso # (Auto) 0.0 (0.0-0.1) K/mm3 Abs Immat Gran (auto) 0.03 (0.00-0.031) K/mm3 Absolute Neuts (auto) 3.9 (1.3-6.7) K/mm3 Absolute Nucleated RBC 0.000 (0.0-0.012) K/mm3 Nucleated RBC % 0.0 (0.0-0.2) % Sodium 135 L (137-145) mmol/L Potassium 4.0 (3.4-5.0) mmol/L Chloride 99 (98-107) mmol/L Carbon Dioxide 29 (22-30) mmol/L Anion Gap 7 (4-12) mmol/L BUN 12 D (9-20) mg/dL Creatinine 0.80 (0.7-1.3) mg/dL Estim Creat Clear Calc 69 ml/min Estimated GFR > 60 (59 - ) Glucose 312 H (65-110) mg/dL Calcium 9.1 (8.4-10.2) mg/dL Total Bilirubin 0.6 (0.2-1.3) mg/dL AST 31 (17-59) U/L ALT 27 (6-50) U/L Alkaline Phosphatase 67 (38-126) U/L Total Protein 7.0 (6.3-8.2) g/dL Albumin 4.3 (3.5-5.1) g/dL Lipase 65 (23-300) U/L Urine Color Dark yellow (Yellow) Urine Appearance Clear (Clear) Urine pH 6.0 (5.0-9.0) Ur Specific [place] 1.024 (1.001-1.035) Urine Protein 1+ H (Negative) mg/dL Urine Glucose (UA) 3+ H (Negative) mg/dL Urine Ketones Trace H (Negative) mg/dL Ur Blood (Man) Negative (Negative) Urine Nitrate Negative (Negative) Urine Bilirubin Negative (Negative) Urine Urobilinogen 1.0 (<2.0) mg/dL Leukocyte Esterase Rfl Trace H (Negative) DIGNA/UL Urine RBC 3-5 H (0-2) /hpf Urine WBC 0-5 (0-3) /hpf Ur Squamous Epith Cells None seen (Few) /hpf Urine Bacteria None seen /hpf Urine Casts 0-2 Imaging Data Attestation: I personally reviewed and interpreted this imaging study as follows: Radiologist's impression: ITS Impressions Abdomen/Pelvis CT 10/02/24 10:20 IMPRESSION: 1. Small sliding hiatal hernia. 2. Cholelithiasis. Abdomen Ultrasound 10/02/24 11:07 Impression: Diffuse fatty infiltration of the liver. Cholelithiasis. Discharge Plan Discharge Clinical Impression: Biliary colic Cholelithiasis Qualifiers: Cholelithiasis location: gallbladder Cholecystitis presence: without cholecystitis Biliary obstruction: without biliary obstruction Qualified Code(s): K80.20 - Calculus of gallbladder without cholecystitis without obstruction Patient Disposition: Home, Self-Care Condition: Stable Instructions: Antibiotic Form, Biliary Colic (ED), Gallstones (ED), Low Fat Diet (ED) Additional Instructions: Your imaging showed evidence of gallstones. Recommend following low-fat diet, continuing Tylenol/ naproxen as needed for pain. Utilize tramadol as needed for more severe pain. Follow-up with general surgery for further evaluation and possible future gallbladder removal. Call office to make appointment. Return to the ED if you experience worsening or severe pain, unable to keep down food or drink, vomiting blood, persistent fevers, or any other symptoms of concern. Prescriptions: New tramadol 50 mg tablet 50 mg PO Q6H PRN (Reason: pain) Qty: 15 0RF No Action cilostazol 50 mg tablet 50 mg PO BID rosuvastatin 40 mg tablet 40 mg PO DAILY metformin 500 mg tablet 500 mg PO DAILY clopidogrel 75 mg tablet 75 mg PO DAILY amlodipine 10 mg tablet 10 mg PO DAILY lisinopril 5 mg tablet 5 mg PO DAILY carvedilol 12.5 mg tablet 25 mg PO BID Follow-up/Referrals: Sean,MD Onel [Primary Care Provider] - Jf Mckeon MD [Physician] - (GENERAL SURGERY) Time of Disposition: 11:13
[2024-10-02 09:27] LABS: Basophils Percent Auto 0.5 % (0.2-1.2); Eosinophils Absolute Auto 0.2 K/mm3 (0-0.3); Eosinophils Percent Auto 3.5 % (0-4.4); Hematocrit 43.2 % (42.0-52.0); Hemoglobin 14.5 g/dL (14.0-18.0); Immature Granulocyte Absolute 0.03 K/mm3 (0.00-0.031); Immature Granulocyte Percent A 0.5 % (0-0.5); Lymphocytes Percent Auto 21.7 % (18.3-44.2); Mean Corpuscular HGB Conc 33.6 g/dl (32-36); Mean Corpuscular Hemoglobin 30.3 pg (26-34); Mean Corpuscular Volume 90.4 fl (80-100); Mean Platelet Volume 9.4 fl (7.4-10.4); Monocytes Absolute Auto 0.5 K/mm3 (0.1-0.6); Monocytes Percent Auto 8.5 % (2.6-8.5); Neutrophils Absolute Auto 3.9 K/mm3 (1.3-6.7); Neutrophils Percent Auto 65.3 % (45.5-73.1); Platelet Count Result 206 k/mm3 (150-375); Red Blood Count 4.78 M/mm3 (4.6-6.20); Red Cell Distribution Width 11.9 % (11.5-14.5)
[2024-10-02 09:31] LABS: Add Urine Microscopic? YES; Appearance Urine Clear (Clear); Bacteria Urine None Seen /hpf; Bilirubin Urine Negative (Negative); Blood Urine Negative (Negative); Color Urine Dark Yellow (Yellow); Glucose Urine UA 3+ mg/dL (Negative); Ketones Urine Trace mg/dL (Negative); Leukocyte Esterase Ur Trace LEU/UL (Negative); Nitrate Urine Negative (Negative); Non Pathogenic Casts 0-2; Protein Urine 1+ mg/dL (Negative); Specific Grav Ur 1.024 (1.001-1.035); Squamous Epithelial Cell Urine None Seen /hpf (Few); WBC Urine 0-5 /hpf (0-3)
[2024-10-02 09:39] LABS: Alanine Aminotransferase 27 U/L (6-50); Albumin Level 4.3 g/dL (3.5-5.1); Alkaline Phosphatase 67 U/L (38-126); Anion Gap 7 mmol/L (4-12); Aspartate Amino Transferase 31 U/L (17-59); Bilirubin,Total 0.6 mg/dL (0.2-1.3); Blood Urea Nitrogen 12 mg/dL (9-20); Calcium 9.1 mg/dL (8.4-10.2); Carbon Dioxide 29 mmol/L (22-30); Chloride 99 mmol/L (98-107); Estimated CRCL calculation 69 ml/min; Estimated Glomerular Filt Rate > 60; Glucose 312 mg/dL (65-110); Lipase 65 U/L (23-300); Sodium 135 mmol/L (137-145)
[2024-10-02 10:30] VITALS: BP 146/96; PULSE 72; RESP 18; O2SAT 98
[2024-10-02 11:01] VITALS: BP 147/86; PULSE 65; RESP 16; O2SAT 97
== END 2024-10-02 11:26 | disposition home or self-care (01) ==
PROVIDERS: Emergency Provider Physician Assistant; PCP Internal Medicine
DX: K80.20 Calculus of gallbladder without cholecystitis without obstruction (principal); I25.10 Atherosclerotic heart disease of native coronary artery without angina pectoris; I10 Essential (primary) hypertension; I25.2 Old myocardial infarction; E11.40 Type 2 diabetes mellitus with diabetic neuropathy, unspecified; E11.51 Type 2 diabetes mellitus with diabetic peripheral angiopathy without gangrene; I73.9 Peripheral vascular disease, unspecified; E78.5 Hyperlipidemia, unspecified; N40.0 Benign prostatic hyperplasia without lower urinary tract symptoms; Z95.5 Presence of coronary angioplasty implant and graft; K44.9 Diaphragmatic hernia without obstruction or gangrene; K76.0 Fatty (change of) liver, not elsewhere classified; Z79.02 Long term (current) use of antithrombotics/antiplatelets; Z79.84 Long term (current) use of oral hypoglycemic drugs; Z79.899 Other long term (current) drug therapy
CPT/HCPCS: 36415; 74177; 76705; 80053; 81001; 83690; 85025; 99284; Q9967

== ENCOUNTER 2024-10-10 08:37 | Outpatient (CLI) | payer MEDICARE, SELFPAY ==
--- NOTE | 2024-10-10 09:00 | ECG_ITS ---
Test Date: 2024-10-10 08:57:35 Measurements Intervals [place] Rate: 80 P: 74 MN: 172 QRS: -11 QRSD: 103 T: 41 QT: 346 QTc: 401 Interpretive Statements SINUS RHYTHM DELAYED PRECORDIAL R/S TRANSITION BASELINE ARTIFACT- I, II, III, AVR, AVL, AVF BORDERLINE ECG No previous ECG available for comparison Electronically Signed On 10-10-2024 11:48:24 [employer]ATER by Jacky Ruiz D.O.
[2024-10-10 09:06] LABS: Basophils Percent Auto 0.4 % (0.2-1.2); Eosinophils Absolute Auto 0.2 K/mm3 (0-0.3); Eosinophils Percent Auto 2.4 % (0-4.4); Hematocrit 44.5 % (42.0-52.0); Hemoglobin 14.7 g/dL (14.0-18.0); Immature Granulocyte Absolute 0.04 K/mm3 (0.00-0.031); Immature Granulocyte Percent A 0.5 % (0-0.5); Lymphocytes Absolute Auto 1.74 K/mm3 (0.9-3.2); Lymphocytes Percent Auto 22.9 % (18.3-44.2); Mean Corpuscular Hemoglobin 30.1 pg (26-34); Mean Corpuscular Volume 91.2 fl (80-100); Mean Platelet Volume 9.6 fl (7.4-10.4); Monocytes Absolute Auto 0.7 K/mm3 (0.1-0.6); Monocytes Percent Auto 8.5 % (2.6-8.5); Neutrophils Percent Auto 65.3 % (45.5-73.1); Platelet Count Result 260 k/mm3 (150-375); Red Blood Count 4.88 M/mm3 (4.6-6.20); Red Cell Distribution Width 11.9 % (11.5-14.5); White Blood Count 7.6 K/mm3 (4.5-10.0)
[2024-10-10 09:18] LABS: Alanine Aminotransferase 24 U/L (6-50); Albumin Level 4.3 g/dL (3.5-5.1); Alkaline Phosphatase 78 U/L (38-126); Amylase 74 U/L (30-110); Anion Gap 8 mmol/L (4-12); Aspartate Amino Transferase 25 U/L (17-59); Bilirubin,Total 0.6 mg/dL (0.2-1.3); Blood Urea Nitrogen 20 mg/dL (9-20); Calcium 9.4 mg/dL (8.4-10.2); Carbon Dioxide 32 mmol/L (22-30); Chloride 98 mmol/L (98-107); Estimated Glomerular Filt Rate > 60; Glucose 288 mg/dL (65-110); Lipase 83 U/L (23-300); Potassium 3.9 mmol/L (3.4-5.0); Sodium 138 mmol/L (137-145)
== END 2024-10-10 08:38 | disposition home or self-care (01) ==
LOC: ANHSURGERY 08:45
PROVIDERS: PCP Internal Medicine; Visit Provider Surgery
DX: Z01.818 Encounter for other preprocedural examination (principal); K80.10 Calculus of gallbladder with chronic cholecystitis without obstruction; I10 Essential (primary) hypertension
CPT/HCPCS: 36415; 80048; 80076; 82150; 83690; 85025; 93005

== ENCOUNTER 2024-10-14 00:14 | Day surgery (SDC) | payer MEDICARE, SELFPAY ==
[2024-10-09 11:32] VITALS: BMI 26.9
--- NOTE | 2024-10-09 12:16 | PC.NURSE ---
Report to the Outpatient Waiting Room, entrance under the green pavilion located off [facility], at time __11:30AM on date ___10/14/24____. Planned Procedure Time: ____1:30PM____.? Time changes happen often and if your time is changed the preop area will call you the afternoon before. - You and your visitor will be asked to self-screen and do not enter if you have any COVID symptoms. Please call surgeon if you need to reschedule. - A mask is optional within the hospital at this time. Patients may have clear liquids (water, carbonated beverages, clear teas, apple juice) until 3 hours prior to surgery with a maximum of 20 ounces. - No food from midnight until time of surgery and no smoking. Take only the following medications with a SIP of water on the morning of surgery: AMLODIPINE, CARVEDILOL, SERTRALINE. MAY TAKE TRAMADOL NEEDED FOR PAIN. DO NOT STOP ANY OF YOUR OTHER PRESCRIPTION MEDICATIONS PRIOR TO SURGERY EXCEPT THE FOLLOWING Medications to discontinue per physician HOLD PLAVIX 4 DAYS PRE-OP PER DR CONLEY PER PATIENT Date to take last dose 10/09/24 Please no make-up, nail slovenian, hairspray, perfume, deodorant, or body powder the day of surgery.? No jewelry (including any body piercings) or valuables the day of surgery, leave them at home.? Please take a shower or bath the night before, or the morning of, surgery with an antibacterial soap.? Wear comfortable, loose fitting clothing.? - Jewelry must be removed prior to entering the operating room.? Rings and piercings that are not removed may be cut off. - The hospital will not accept responsibility for valuables.? - Please leave all valuables, including medications, at home the day of surgery. If you are going home after surgery, a licensed wedding transportation driver must drive you home.? - NO public transportation without another adult if you receive anesthesia. - We recommend that an adult stay with you for 24 hours following discharge. - We also recommend that you do not drive, make important decision, drink alcoholic beverages, or take any drugs that were not prescribed by your health care provider for at least 24 hours after your discharge time. Follow any additional instructions given to you from your surgeon. Telephone instructions given to ____PATIENT and asked if any additional questions and then verbalized understanding. Patient advised to call surgeon office or pre surgery nurse liaison [phone] if any additional questions.
[2024-10-14] VITALS (8 sets, daily range): BP systolic 140–175; BP diastolic 70–87; PULSE 64–102; RESP 14–16; TEMP 36.3–36.4; O2SAT 95–100
--- NOTE | 2024-10-14 12:11 | WPDANESEPPF ---
Anes - Initial Pre Proc Eval Procedure: Operation Date: 10/14/24 13:30 Proposed Procedures p Laparoscopic Cholecystectomy - Jf Mckeon MD Date/Time: 10/14/24 12:11 Surgeon: Jf Mckeon MD Pre Op Diagnosis: chronic cholecystitis with stones Patient Data Age: 69 Gender: M Height: 1.7 m Weight: 78 kg Allergies Allergy/AdvReac Type Severity Reaction Status Date / Time alcohol Allergy Severe AVOIDS Verified 10/14/24 13:13 meperidine Allergy Severe AVOIDS-DAUGHTER Verified 10/14/24 13:13 HAD GENETIC ADVERSE REACTION morphine Allergy Severe Unknown Verified 10/14/24 13:13 ibuprofen AdvReac Severe MIGRAINES, Verified 10/14/24 13:13 POS TIA ANESTHETIC MEDS Allergy AVOIDS Uncoded 10/14/24 13:13 AVOIDED-PSEUDOCHOLI ANESTHESIA R/T PSEUDOCHOLINESTERASE DEFICIENCY Home Medications Medication Instructions Recorded Confirmed Type amlodipine 10 mg tablet 10 mg PO QAM 05/22/20 10/14/24 History clopidogrel 75 mg tablet 75 mg PO DAILY 05/22/20 10/14/24 History lisinopril 5 mg tablet 5 mg PO QAM 05/22/20 10/14/24 History metformin 500 mg tablet 500 mg PO BID 05/22/20 10/14/24 History carvedilol 12.5 mg tablet 12.5 mg PO BID 09/18/22 10/14/24 History rosuvastatin 40 mg tablet 40 mg PO DAILY 07/13/23 10/14/24 History tramadol 50 mg tablet 50 mg PO Q6H PRN pain #15 tabs 10/02/24 10/14/24 Rx naproxen 500 mg tablet 500 mg PO BID PRN Pain 10/09/24 10/14/24 History sertraline 25 mg tablet 25 mg PO QAM 10/09/24 10/14/24 History valacyclovir 1 gram tablet 1,000 mg PO TID 10/09/24 10/14/24 History Patient hx anesthesia problems: pseudocholinesterase deficiency Family hx anesthesia problems: none Results Review: All pre-operative results and documents have been reviewed as part of the pre-operative evaluation. [facility] Past Medical History Medical History BPH (benign prostatic hyperplasia) CAD (coronary artery disease) Diabetes Hyperlipidemia Hypertension Myocardial infarct Neuropathy Peripheral vascular disease Proteinuria Surgical History Surgical History History of coronary artery stent placement Family History Family History (Updated 10/09/24 @ 09:13 by Britany Carter MA) Son Diabetes mellitus Father Heart disease Hypertension Sibling Heart disease Hypertension Social History Social History Smoking packs per day: 0.5 Smoking cigarettes per day: 10.0 Years smoked: 45 Smoking pack-years: 22.50 Smoking status: Former smoker Tobacco type: cigarettes Smoking end date: 05/26/20 Alcohol intake: current Substance use: never Substance use type: does not use Do You Feel Safe in your Home?: Yes Lack of Transportation: No Lack of Food: Never True Current Housing: I Have Housing Concerned About Future Housing: No Difficulty Paying Gas/Electric Bills: No Difficulty Paying for Meds: No Currently Unemployed: No Education: Trade/Vocational Certificate Difficulty w/ Childcare or Family Care: No Living arrangements: with family Additional living arrangements comments: Gender identity (if verbalized by the patient): Male Sexual Orientation (if Verbalized by the Patient): Straight or Heterosexual Spiritual care concerns: No Anes - Eval Final PreProcedure Day of Procedure 10/14/24 12:11 Patient weight: normal Heart: regular rate and rhythm Lungs: clear to auscultation Airway: Mallampati scale class II Neurological: alert and oriented Last oral intake: >/= 8 hours ASA classification: III Emergent: no Anesthetic plan: proceed Anesthesia type and monitoring: general ETT and standard monitoring Results Review: All pre-operative results and documents have been reviewed as part of the pre-operative evaluation. Informed Consent: The patient's anesthetic plan and its attendant risks and benefits were discussed with the patient/family/POA. Questions were solicited and answers provided to the satisfaction of the patient/family/POA.
[2024-10-14] MEDS: ACETAMINOPHEN 500 MG TABLET 1000 MG PO (12:40)
[2024-10-14] MEDS: KETOROLAC 15 MG/ML VIAL (*BKC) IV PUSH (12:55)
[2024-10-14 13:07] LABS: Glucose Point of Care 134 mg/dl (65-105)
[2024-10-14] MEDS: LACTATED RINGERS 1,000 ML 30 ML IV CONT ×2 (13:21→15:55)
--- NOTE | 2024-10-14 13:29 | WPDHPUPDATE1 ---
History and Physical Update Update Date/Time: 10/14/24 13:29 History and Physical has been reviewed, including an updated exam of the patient. There are NO changes in the patient's condition. Risks, benefits, and alternatives have been discussed and questions answered. Patient agrees to proceed with procedure.
[2024-10-14] MEDS: ceFAZolin 2 GM/D5W 50 ML 2 GM/50 ML BAG IVPB (14:23)
[2024-10-14] MEDS: BUPIVACAINE/EPINEPHRINE 0.5% 50 ML VIAL 20 ML INFILTRATE (15:04)
--- NOTE | 2024-10-14 16:16 | W.PM.PROC2 ---
Procedure Note - Detailed Date of Procedure 10/14/24 Pre-op Diagnosis chronic cholecystitis with stones Post-op Diagnosis Same Procedure Performed Laparoscopic cholecystectomy Surgeon Jf Mckeon MD Dredge Deckhand Kristen ROGER Anesthesia General and Local Indications Patient was having severe right upper quadrant and epigastric pain. It was constant and worse with eating. Imaging showed that he had gallstones. He is taken to surgery now for laparoscopic cholecystectomy. Findings Chronic inflammation of the gallbladder, gallstones, no biliary ductal dilatation, no liver abnormalities. Description of Procedure Patient was taken to surgery and induced into general anesthesia. The abdomen is prepped draped. Trocars were placed in the usual fashion using Audaster optical trocars and a 5 mm camera. The gallbladder was 1st decompressed with a laparoscopic aspirator. The cholecystotomy was closed with a Vicryl endoloop. We then elevated the gallbladder anteriorly and toward the shoulder. Traction was placed on the infundibulum and the cystic duct and cystic artery were dissected. The gallbladder was dissected off the liver at its lower 3rd. Critical view was achieved. We securely clipped and divided the cystic artery and cystic duct. The gallbladder was then further dissected free of its attachments to the liver. Once free of the liver, gallbladder was placed in Endo-Catch bag and retrieved through the 10 11 epigastric trocar. We replaced the epigastric trocar and then reviewed the gallbladder fossa and right upper quadrant. Some irrigation and suctioning were done. Some additional cautery on the gallbladder fossa was performed. All looked good with no evidence of bleeding or bile leakage. We then evacuated CO2 and removed the trocar sleeves. Skin wounds were closed with subcuticular 4-0 Monocryl skin suture. The wounds were dressed with Exofin surgical adhesive. The patient was awakened and taken to recovery in good condition. Sponge and needle counts were correct x2. Estimated Blood Loss -10 Drains No Packing No Pathology Yes (Gallbladder) Complications None Condition Stable Disposition PACU [facility] Billing Surgery - Charge Forward: Surgery Billing (Laparoscopic cholecystectomy)
[2024-10-14 16:17] LABS: Glucose Point of Care 153 mg/dl (65-105)
[2024-10-14] MEDS: ONDANSETRON INJ 4 MG/2 ML VIAL IV PUSH (16:25)
[2024-10-14] MEDS: diphenhydrAMINE HCl INJ 50 MG/ML VIAL 12.5 MG IV PUSH (16:44)
== END 2024-10-14 17:40 | disposition home or self-care (01) ==
PROVIDERS: PCP Internal Medicine; Visit Provider Surgery
PROC: 0FT44ZZ Resection of Gallbladder, Percutaneous Endoscopic Approach (ICD-10-PCS; CPT 47562; principal; 2024-10-14 13:30)
DX: K80.10 Calculus of gallbladder with chronic cholecystitis without obstruction (principal); E78.5 Hyperlipidemia, unspecified; I10 Essential (primary) hypertension; E11.9 Type 2 diabetes mellitus without complications; G89.18 Other acute postprocedural pain; N40.0 Benign prostatic hyperplasia without lower urinary tract symptoms; I25.10 Atherosclerotic heart disease of native coronary artery without angina pectoris; I25.2 Old myocardial infarction; I73.9 Peripheral vascular disease, unspecified; Z79.02 Long term (current) use of antithrombotics/antiplatelets; Z79.84 Long term (current) use of oral hypoglycemic drugs; Z79.891 Long term (current) use of opiate analgesic; Z79.1 Long term (current) use of non-steroidal anti-inflammatories (NSAID); Z98.890 Other specified postprocedural states; Z95.5 Presence of coronary angioplasty implant and graft; Z87.891 Personal history of nicotine dependence; Z82.49 Family history of ischemic heart disease and other diseases of the circulatory system
CPT/HCPCS: 47562; 82948; 88304; A9270; J0690; J1100; J1171; J1200; J1885; J2405; J2704; J3010; J7120

== ENCOUNTER 2024-10-26 19:00 | Observation (INO) | payer MEDICARE, SELFPAY ==
--- NOTE | ~2024-10-26 | CT_ITS ---
Non-contrast CT scan of the Abdomen and Pelvis Clinical indication: Hematuria Technique: 2.5 mm axial scans were obtained through the abdomen and pelvis without intravenous or or al contrast. Dose reduction technique was used on this scan by utilizing automated exposure control a nd iterative reconstruction technique. The dose-length product (DLP) was 682.88 mGy-cm. COMPARISON: 10/02/2024 Findings: Images through the lung bases reveal no abnormalities. There is no evidence of renal or ureteral calculi. The kidneys and the ureters are nondilated. Stable left renal cyst. The liver, spleen, and pancreas appear normal. Cholecystectomy clips are present. Bilateral adrenal n odules are unchanged, most likely adenomas. There are atherosclerotic calcifications of the aorta. . There is no evidence of bowel obstruction. Images through the pelvis were performed. There is no evidence of ascites or lymphadenopathy. There i s a new 4.6 x 4.0 cm hyperdense masslike lesion in the urinary bladder, most compatible hematoma/bloo d clot given rapid interval onset from recent prior exam. Prostate gland is markedly enlarged and ind ents the bladder base. Impression: 4.6 x 4.0 cm hyperdense masslike lesion in the urinary bladder is most compatible with hematoma/blood clot given rapid interval onset since recent prior exam from 10/02/2024. Markedly enlarged prostate gland. Reviewed, dictated and finalized at [facility]. IX [employer]PER[facility] [employer]CENTR[facility] Impression: 4.6 x 4.0 cm hyperdense masslike lesion in the urinary bladder is most compatib le with hematoma/blood clot given rapid interval onset since recent prior exam from 10/02/2024. Markedly enlarged prostate gland.
[2024-10-26 19:01] VITALS: BP 168/80; PULSE 77; RESP 18; TEMP 36.3; O2SAT 100
[2024-10-27] VITALS (27 sets, daily range): BP systolic 91–175; BP diastolic 58–97; PULSE 58–84; RESP 12–20; TEMP 36.1–36.6; O2SAT 97–100; BMI 27.3
--- NOTE | 2024-10-27 00:24 | ED_ITS ---
HPI - General Adult General Chief complaint: Urogenital-Male Stated complaint: heamturia Time Seen by Provider: 10/26/24 22:13 History of Present Illness HPI narrative: Patient is a 69-year-old gentleman who presents emergency department with chief complaint of hematuria. The patient reports that he urinated this evening and had bright red blood in his urine the patient states he just had a gallbladder surgery about week and half ago the patient reports that he is on Plavix but is not on any actual blood thinner. Patient reports no trauma reports that his abdomen feels full Related Data Home Medications Medication Instructions Recorded Confirmed amlodipine 10 mg tablet 10 mg PO QAM 05/22/20 10/14/24 clopidogrel 75 mg tablet 75 mg PO DAILY 05/22/20 10/14/24 lisinopril 5 mg tablet 5 mg PO QAM 05/22/20 10/14/24 metformin 500 mg tablet 500 mg PO BID 05/22/20 10/14/24 carvedilol 12.5 mg tablet 12.5 mg PO BID 09/18/22 10/14/24 rosuvastatin 40 mg tablet 40 mg PO DAILY 07/13/23 10/14/24 naproxen 500 mg tablet 500 mg PO BID PRN Pain 10/09/24 10/14/24 sertraline 25 mg tablet 25 mg PO QAM 10/09/24 10/14/24 valacyclovir 1 gram tablet 1,000 mg PO TID 10/09/24 10/14/24 Allergies Allergy/AdvReac Type Severity Reaction Status Date / Time alcohol Allergy Severe AVOIDS Verified 10/14/24 13:13 meperidine Allergy Severe AVOIDS-DAUGHTER Verified 10/14/24 13:13 HAD GENETIC ADVERSE REACTION morphine Allergy Severe Unknown Verified 10/14/24 13:13 ibuprofen AdvReac Severe MIGRAINES, Verified 10/14/24 13:13 POS TIA ANESTHETIC MEDS Allergy AVOIDS Uncoded 10/14/24 13:13 AVOIDED-PSEUDOCHOLI ANESTHESIA R/T PSEUDOCHOLINESTERASE DEFICIENCY Review of Systems Review of Systems: A 10 system review of systems was completed on the patient and is negative except for what is stated in the HPI. Nursing and ancillary documentation was reviewed. [facility] Past Medical History Medical History BPH (benign prostatic hyperplasia) CAD (coronary artery disease) Diabetes Hyperlipidemia Hypertension Myocardial infarct Neuropathy Peripheral vascular disease Proteinuria Surgical History Surgical History History of coronary artery stent placement Family History Family History Son Diabetes mellitus Father Heart disease Hypertension Sibling Heart disease Hypertension Social History Social History Smoking packs per day: 0.5 Smoking cigarettes per day: 10.0 Years smoked: 45 Smoking pack-years: 22.50 Smoking status: Former smoker Tobacco type: cigarettes Smoking end date: 05/26/20 Alcohol intake: current Substance use: never Substance use type: does not use Do You Feel Safe in your Home?: Yes Lack of Transportation: No Lack of Food: Never True Current Housing: I Have Housing Concerned About Future Housing: No Difficulty Paying Gas/Electric Bills: No Difficulty Paying for Meds: No Currently Unemployed: No Education: Trade/Vocational Certificate Difficulty w/ Childcare or Family Care: No Living arrangements: with family Additional living arrangements comments: Gender identity (if verbalized by the patient): Male Sexual Orientation (if Verbalized by the Patient): Straight or Heterosexual Spiritual care concerns: No Exam Narrative: GENERAL: Well-appearing, well-nourished, and in no acute distress. HEAD: Normocephalic, atraumatic. EYES: PERRLA and EOMI. ENT: Nares clear, no rhinorrhea or epistaxis. Mucous membranes moist. NECK: Supple. CHEST: Clear to auscultation. No respiratory distress. HEART: Regular rate and rhythm. No murmur heard. Normal peripheral pulses. ABDOMEN: Soft, nontender, nondistended, normal active bowel sounds. : The urine is dark red with no acute gross hematuria the consistency of tomato juice EXTREMITIES: Normal range of motion. No edema. SKIN: Warm, dry, no rash. NEURO: No focal deficits. Alert and oriented x3. PSYCH: Normal mood and affect. Course Vital Signs Vital signs: Vital Signs Temperature 36.3 C L 10/26/24 19:01 Pulse Rate 77 10/26/24 19:01 Respiratory Rate 18 10/26/24 19:01 Blood Pressure 168/80 H 10/26/24 19:01 Pulse Oximetry 100 10/26/24 19:01 Oxygen Delivery Room Air 10/26/24 19:01 Temperature 36.3 C L 10/26/24 19:01 Pulse Rate 75 10/27/24 01:15 Respiratory Rate 16 10/27/24 01:15 Blood Pressure 175/97 H 10/27/24 01:02 Pulse Oximetry 98 10/27/24 01:15 Oxygen Delivery Room Air 10/26/24 19:01 Medical Decision Making MDM Narrative Medical decision making narrative: Differential diagnosis includes hematuria, ureterolithiasis, UTI The patient is just on anti-platelet therapy with being on Plavix. The patient had a 3 way catheter placed by nursing staff and the catheter was irrigated the patient was placed on CBI is currently at a pain clinic made colored urine. Urinalysis did show greater than 100 white blood cells the patient will be empirically started on Rocephin the case was discussed with both the hospitalist and Urology the patient will be kept NPO in case the patient requires cystoscopy in the morning Vital Signs Vital Signs: Vital Signs Temperature 36.3 C L 10/26/24 19:01 Pulse Rate 77 10/26/24 19:01 Respiratory Rate 18 10/26/24 19:01 Blood Pressure 168/80 H 10/26/24 19:01 Pulse Oximetry 100 10/26/24 19:01 Oxygen Delivery Room Air 10/26/24 19:01 Temperature 36.3 C L 10/26/24 19:01 Pulse Rate 75 10/27/24 01:15 Respiratory Rate 16 10/27/24 01:15 Blood Pressure 175/97 H 10/27/24 01:02 Pulse Oximetry 98 10/27/24 01:15 Oxygen Delivery Room Air 10/26/24 19:01 Lab Data 10/27/24 00:02 10/27/24 00:02 Labs: Lab Results 10/27/24 Range/Units 00:02 WBC 9.3 (4.5-10.0) K/mm3 RBC 4.35 L (4.6-6.20) M/mm3 Hgb 13.4 L (14.0-18.0) g/dL Hct 39.2 L (42.0-52.0) % MCV 90.1 (80-100) fl MCH 30.8 (26-34) pg MCHC 34.2 (32-36) g/dl RDW 12.1 (11.5-14.5) % Plt Count 276 (150-375) k/mm3 MPV 9.6 (7.4-10.4) fl Immature Gran % (Auto) 0.6 H (0-0.5) % Neut % (Auto) 59.5 (45.5-73.1) % Lymph % (Auto) 23.4 (18.3-44.2) % [place] % (Auto) 8.6 H (2.6-8.5) % Eos % (Auto) 7.4 H (0-4.4) % Baso % (Auto) 0.5 (0.2-1.2) % Lymph # (Auto) 2.16 (0.9-3.2) K/mm3 [place] # (Auto) 0.8 H (0.1-0.6) K/mm3 Eos # (Auto) 0.7 H (0-0.3) K/mm3 Baso # (Auto) 0.1 (0.0-0.1) K/mm3 Abs Immat Gran (auto) 0.06 H (0.00-0.031) K/mm3 Absolute Neuts (auto) 5.5 (1.3-6.7) K/mm3 Absolute Nucleated RBC 0.000 (0.0-0.012) K/mm3 Nucleated RBC % 0.0 (0.0-0.2) % PT 14.9 H (11.1-14.7) Seconds INR 1.1 APTT 37.3 H (22.3-36.8) Seconds Sodium 133 L (137-145) mmol/L Potassium 4.1 (3.4-5.0) mmol/L Chloride 100 (98-107) mmol/L Carbon Dioxide 27 (22-30) mmol/L Anion Gap 6 (4-12) mmol/L BUN 25 H (9-20) mg/dL Creatinine 0.90 (0.7-1.3) mg/dL Estim Creat Clear Calc 62 ml/min Estimated GFR > 60 (59 - ) Glucose 295 H (65-110) mg/dL Lactic Acid 1.8 (0.7-2.0) mmol/L Calcium 8.9 (8.4-10.2) mg/dL Total Bilirubin 0.5 (0.2-1.3) mg/dL AST 26 (17-59) U/L ALT 23 (6-50) U/L Alkaline Phosphatase 73 (38-126) U/L Total Protein 7.0 (6.3-8.2) g/dL Albumin 4.0 (3.5-5.1) g/dL Urine Color Red H (Yellow) Urine Appearance Turbid H (Clear) Urine pH TNP Ur Specific [place] 1.015 (1.001-1.035) Urine Protein 2+ H (Negative) mg/dL Urine Glucose (UA) Trace H (Negative) mg/dL Urine Ketones Trace H (Negative) mg/dL Ur Blood (Man) 3+ H (Negative) Urine Nitrate Positive H (Negative) Urine Bilirubin 3+ H (Negative) Urine Urobilinogen 0.2 (<2.0) mg/dL Leukocyte Esterase Rfl 3+ H (Negative) DIGNA/UL Urine RBC >100 H (0-2) /hpf Urine WBC >100 H (0-3) /hpf Ur Squamous Epith Cells None seen (Few) /hpf Urine Bacteria 1+ H /hpf Urine Casts 0-2 Discharge Plan Discharge Clinical Impression: Hematuria Patient Disposition: Still a Patient Condition: Stable Prescriptions: No Action rosuvastatin 40 mg tablet 40 mg PO DAILY metformin 500 mg tablet 500 mg PO BID clopidogrel 75 mg tablet 75 mg PO DAILY Hold Instructions: Resume on 10/16/24. amlodipine 10 mg tablet 10 mg PO QAM lisinopril 5 mg tablet 5 mg PO QAM carvedilol 12.5 mg tablet 12.5 mg PO BID tramadol 50 mg tablet 50 mg PO Q6H PRN (Reason: pain) Qty: 15 0RF valacyclovir 1 gram tablet 1,000 mg PO TID sertraline 25 mg tablet 25 mg PO QAM naproxen 500 mg tablet 500 mg PO BID PRN (Reason: Pain) oxycodone-acetaminophen [Percocet] 5-325 mg tablet 1 - 2 tablet PO Q6H PRN (Reason: pain) Qty: 15 0RF Follow-up/Referrals: Sean,MD Onel [Primary Care Provider] - Time of Disposition: 01:33
[2024-10-27 00:27] LABS: Basophils Absolute Auto 0.1 K/mm3 (0.0-0.1); Basophils Percent Auto 0.5 % (0.2-1.2); Eosinophils Absolute Auto 0.7 K/mm3 (0-0.3); Eosinophils Percent Auto 7.4 % (0-4.4); Hematocrit 39.2 % (42.0-52.0); Hemoglobin 13.4 g/dL (14.0-18.0); Immature Granulocyte Absolute 0.06 K/mm3 (0.00-0.031); Immature Granulocyte Percent A 0.6 % (0-0.5); Lymphocytes Absolute Auto 2.16 K/mm3 (0.9-3.2); Lymphocytes Percent Auto 23.4 % (18.3-44.2); Mean Corpuscular HGB Conc 34.2 g/dl (32-36); Mean Corpuscular Hemoglobin 30.8 pg (26-34); Mean Corpuscular Volume 90.1 fl (80-100); Mean Platelet Volume 9.6 fl (7.4-10.4); Monocytes Absolute Auto 0.8 K/mm3 (0.1-0.6); Monocytes Percent Auto 8.6 % (2.6-8.5); Neutrophils Absolute Auto 5.5 K/mm3 (1.3-6.7); Neutrophils Percent Auto 59.5 % (45.5-73.1); Platelet Count Result 276 k/mm3 (150-375); Red Blood Count 4.35 M/mm3 (4.6-6.20); Red Cell Distribution Width 12.1 % (11.5-14.5); White Blood Count 9.3 K/mm3 (4.5-10.0)
[2024-10-27 00:36] LABS: Lactic Acid Reflex 1.8 mmol/L (0.7-2.0)
[2024-10-27 00:37] LABS: Alanine Aminotransferase 23 U/L (6-50); Alkaline Phosphatase 73 U/L (38-126); Anion Gap 6 mmol/L (4-12); Aspartate Amino Transferase 26 U/L (17-59); Bilirubin,Total 0.5 mg/dL (0.2-1.3); Blood Urea Nitrogen 25 mg/dL (9-20); Calcium 8.9 mg/dL (8.4-10.2); Carbon Dioxide 27 mmol/L (22-30); Chloride 100 mmol/L (98-107); Estimated CRCL calculation 62 ml/min; Estimated Glomerular Filt Rate > 60; Glucose 295 mg/dL (65-110); Potassium 4.1 mmol/L (3.4-5.0); Sodium 133 mmol/L (137-145)
[2024-10-27 00:46] LABS: Add Urine Microscopic? YES; Appearance Urine Turbid (Clear); Bacteria Urine 1+ /hpf; Bilirubin Urine 3+ (Negative); Color Urine Red (Yellow); Glucose Urine UA Trace mg/dL (Negative); Ketones Urine Trace mg/dL (Negative); Leukocyte Esterase Ur 3+ LEU/UL (Negative); Nitrate Urine Positive (Negative); Non Pathogenic Casts 0-2; Protein Urine 2+ mg/dL (Negative); RBC Urine >100 /hpf (0-2); Specific Grav Ur 1.015 (1.001-1.035); Squamous Epithelial Cell Urine None Seen /hpf (Few); Urobilinogen Urine 0.2 mg/dL (<2.0); WBC Urine >100 /hpf (0-3)
[2024-10-27] MEDS: HYDROmorphone HCL INJ (*CRX) 1 MG/ML SYR IV PUSH (00:53)
[2024-10-27 01:04] LABS: Blood Urine 3+ (Negative)
[2024-10-27 01:07] LABS: INR 1.1; Prothrombin Time 14.9 Seconds (11.1-14.7)
[2024-10-27 01:08] LABS: Partial Thromboplastin Time 37.3 Seconds (22.3-36.8)
[2024-10-27] MEDS: WATER FOR IRRIGATION, STERILE 500 ML BOTTLE (01:17)
--- NOTE | 2024-10-27 03:47 | PC.NURSE ---
PATIENT ARRIVED ON 3 MEDSURG AT 0320
[2024-10-27] MEDS: SODIUM CHLORIDE 0.9% IV 1,000 ML 125 ML IV CONT ×2 (03:51→08:06)
--- NOTE | 2024-10-27 05:26 | PM.IMHP ---
H&P: HPI History of Present Illness Date/Time: 10/27/24 05:26 Chief Complaint: 1. Bloody urine Narrative: Karri De La Cruz is a 69 yo M with a mHx significant for obesity, hematuria, BPH s/p TURP While he is not Clopidogrel for He presents after a day's history of bloody urine; it was progressive and with no known modifying factors was associated with difficulty urination and pain. He denies fevers, chills, nausea, vomiting, chest pain, dizziness, LOC, weight loss or lenin satiety. He smokes about 0.5ppd of cigarettes, drinks alcohol sparingly, denies recreational drugs; Work-up findings: UA: + Nitrite; 3+ LE, >100 WBC, 1+ bacteria Hb 13 WBC 9 PLT 276 INR 1.1 Na 133 K 4.1 Cl 100 HCO3 27 CTAP: Prostatomegaly, new urinary soft tissue mass or blood clot with calcification measuring 4.1x3.7 He will be admitted, evaluated and managed for hematuria and UTI Review of Systems Constitutional: Constitutional: Reports fatigue and Reports lethargy ENT: Denies Normal hearing present, Denies dysphagia, Denies epistaxis and Denies nasal congestion Cardiovascular: Cardiovascular: Denies leg edema, Denies lightheadedness and Denies palpitations Respiratory: Respiratory: Denies hemoptysis, Denies dyspnea and Denies dyspnea on exertion Gastrointestinal: Gastrointestinal: Denies melena, Denies bloating, Denies hematochezia, Denies heartburn and Denies diarrhea Genitourinary: Genitourinary: Reports hematuria, Denies flank pain and Denies urinary frequency Musculoskeletal: Musculoskeletal: Denies arthralgias and Denies joint swelling Integumentary/Breasts: Skin/Breast: Denies dry skin Neurologic: Denies Abnormal speech present Psychiatric: Psychiatric: Denies behavioral changes and Denies confusion [facility] Past Medical History Medical History BPH (benign prostatic hyperplasia) CAD (coronary artery disease) Diabetes Hyperlipidemia Hypertension Myocardial infarct Neuropathy Peripheral vascular disease Proteinuria Surgical History Surgical History History of coronary artery stent placement Family History Family History Son Diabetes mellitus Father Heart disease Hypertension Sibling Heart disease Hypertension Social History Social History Smoking packs per day: 0.5 Smoking cigarettes per day: 10.0 Years smoked: 40 Smoking pack-years: 20.00 Smoking status: Current some day smoker Alcohol intake: current Substance use: never Substance use type: does not use Do You Feel Safe in your Home?: Yes Lack of Transportation: No Lack of Food: Never True Current Housing: I Have Housing Concerned About Future Housing: No Difficulty Paying Gas/Electric Bills: No Difficulty Paying for Meds: No Currently Unemployed: No Education: Trade/Vocational Certificate Difficulty w/ Childcare or Family Care: No Living arrangements: with family Additional living arrangements comments: Gender identity (if verbalized by the patient): Male Sexual Orientation (if Verbalized by the Patient): Straight or Heterosexual Spiritual care concerns: No Meds Home Medications and Allergies Home Medications Medication Instructions Recorded Confirmed Type amlodipine 10 mg tablet 10 mg PO QAM 05/22/20 10/27/24 History clopidogrel 75 mg tablet 75 mg PO DAILY 05/22/20 10/27/24 History lisinopril 5 mg tablet 5 mg PO QAM 05/22/20 10/27/24 History carvedilol 12.5 mg tablet 12.5 mg PO BID 09/18/22 10/27/24 History rosuvastatin 40 mg tablet 40 mg PO DAILY 07/13/23 10/27/24 History naproxen 500 mg tablet 500 mg PO BID PRN Pain 10/09/24 10/27/24 History sertraline 25 mg tablet 25 mg PO QAM 10/09/24 10/27/24 History valacyclovir 1 gram tablet 1,000 mg PO TID 10/09/24 10/27/24 History metformin 1,000 mg tablet 1,000 mg PO BID 10/27/24 10/27/24 History Allergies Allergy/AdvReac Type Severity Reaction Status Date / Time alcohol Allergy Severe AVOIDS Verified 10/27/24 01:50 meperidine Allergy Severe AVOIDS-DAUGHTER Verified 10/27/24 01:50 HAD GENETIC ADVERSE REACTION morphine Allergy Severe Unknown Verified 10/27/24 01:50 ibuprofen AdvReac Severe MIGRAINES, Verified 10/27/24 01:50 POS TIA ANESTHETIC MEDS Allergy AVOIDS Uncoded 10/27/24 01:50 AVOIDED-PSEUDOCHOLI ANESTHESIA R/T PSEUDOCHOLINESTERASE DEFICIENCY Vital Signs Vital Signs - 24 hr 10/26/24 19:01 10/27/24 00:08 10/27/24 00:17 Temperature 97.3 F L Pulse Rate 77 69 Respiratory Rate 18 13 Blood Pressure 168/80 H 149/77 H Pulse Oximetry 100 100 100 Oxygen Delivery Room Air 10/27/24 01:00 10/27/24 01:02 10/27/24 01:15 Temperature Pulse Rate 74 78 75 Respiratory Rate 14 15 16 Blood Pressure 175/97 H Pulse Oximetry 99 99 98 Oxygen Delivery 10/27/24 01:30 10/27/24 01:34 10/27/24 01:45 Temperature Pulse Rate 73 75 76 Respiratory Rate 12 13 14 Blood Pressure 133/97 H Pulse Oximetry 98 99 100 Oxygen Delivery 10/27/24 01:47 10/27/24 02:00 10/27/24 02:15 Temperature Pulse Rate 74 71 74 Respiratory Rate 14 15 13 Blood Pressure 147/84 H Pulse Oximetry 98 99 100 Oxygen Delivery 10/27/24 02:30 10/27/24 02:31 10/27/24 03:46 Temperature 97.4 F L Pulse Rate 76 75 74 Respiratory Rate 18 14 18 Blood Pressure 158/83 H 129/81 Pulse Oximetry 99 99 98 Oxygen Delivery 10/27/24 05:01 Temperature Pulse Rate Respiratory Rate Blood Pressure Pulse Oximetry Oxygen Delivery Room Air Exam Const: General: comfortable and no acute distress HENMT: Mouth: Yes moist mucous membranes Eyes: General: appearance normal, both eyes and all related structures Sclera: sclerae normal and scleral abnormality Pupils: Equal, round and reactive pupils present Neck: Neck: supple Lymphatic: lymphadenopathy Resp: Effort & Inspection: normal respiratory effort Auscultation: clear to auscultation bilaterally, no crackles, no rales and no rhonchi Cardio: Rate: regular rate Rhythm: regular rhythm GI: Inspection: distended Auscultation: normal bowel sounds Urinary Catheter: Urinary Catheter: patent and draining and urine red Skin: General skin exam: normal color Wounds: no wounds Neuro: General: gait normal Speech: normal speech Motor exam (neuro): 5/5 motor strength present throughout and Normal motor muscle tone present throughout Psych: Mental Status: mental status grossly normal Affect: normal affect and Anxious affect present H&P: Results Labs Labs: Short CBC 10/27/24 Range/Units 00:02 WBC 9.3 (4.5-10.0) K/mm3 Hgb 13.4 L (14.0-18.0) g/dL Hct 39.2 L (42.0-52.0) % Plt Count 276 (150-375) k/mm3 BMP 10/27/24 00:02 Sodium 133 L Potassium 4.1 Chloride 100 Carbon Dioxide 27 BUN 25 H Creatinine 0.90 Glucose 295 H Calcium 8.9 Liver Function 10/27/24 Range/Units 00:02 Total Bilirubin 0.5 (0.2-1.3) mg/dL AST 26 (17-59) U/L ALT 23 (6-50) U/L Alkaline Phosphatase 73 (38-126) U/L Albumin 4.0 (3.5-5.1) g/dL Urine 10/27/24 Range/Units 00:02 Urine Color Red H (Yellow) Urine Appearance Turbid H (Clear) Urine pH TNP Ur Specific [place] 1.015 (1.001-1.035) Urine Protein 2+ H (Negative) mg/dL Urine Glucose (UA) Trace H (Negative) mg/dL Assessment and Plan Assessment and plan (1) Hematuria: Code(s): R31.9 - Hematuria, unspecified Status: Acute (2) Antiplatelet or antithrombotic long-term use: Code(s): Z79.02 - superintendent terminal (current) use of antithrombotics/antiplatelets Status: Acute Plan Acute and principal conditions. 1. UTI 2. Hematuria 3. Probable new soft tissue mass in urinary bladder a. Ceftriaxone b. IVFs; Urine culture; CBI c. Urology consulted d. Hold Clopidogrel and pharmacologic VTE Chronic and stable conditions. 1. BPH 2. CAD s/p PCI 3. PVD. 4. HTN 5. Dyslipidemia. 6. NIDDM2. 7. Nicotine dependence. cessation counseling 3 minutes Miscellaneous care. 1. VTE prophylaxis. SCDs; Hospitalist MIPS Advance Care Plan I have confirmed that the patient's Advanced Care Plan is present, code status is documented, or surrogate decision maker is listed in patient medical record.: Yes Medication Reconciliation I have utilized all available resources to obtain, update and review the patients current medications (includes all prescriptions, OTC, herbals, cannabis, and nutritional supplements).: Yes The patient is not eligible for med reconciliation; the patient is in a emergent medical situation where delaying treatment would jeopardize the patients health.: Yes
[2024-10-27 06:28] LABS: Hematocrit 37.6 % (42.0-52.0); Hemoglobin 12.5 g/dL (14.0-18.0)
[2024-10-27] MEDS: HYDROmorphone HCL INJ (*CRX) 1 MG/ML SYR 0.5 MG IV PUSH (08:06)
--- NOTE | 2024-10-27 08:07 | WPDURCON ---
Assessment and Plan Assessment and plan (1) Gross hematuria: Code(s): R31.0 - Gross hematuria Status: Acute (2) History of BPH: Code(s): Z87.438 - Personal history of other diseases of male genital organs Status: Acute Plan I will taken the operating room today for cystoscopy with clot evacuation and fulguration of bleeders. He understands risks of bleeding, infection, damage to your tract. Inability to resolve the hematuria. He agrees to proceed Urology Consult Note HPI Date Seen: 10/27/24 Requesting Physician: Chris Alexis MD Primary Care Provider: Onel Estrada, Consult Narrative Narrative: Karri Hadley is a 69 year old male with history of BPH. He has had a TURP in the past. He had acute onset of blood in the urine last evening at 7:00 p.m.. It was painless without dysuria. There is no urinary retention. There is no fevers or chills. There is no symptoms of infection. no flank pain other than he states the Hospital bed is not comfortable. He had recent cholecystectomy. He takes Plavix chronically. I am unsure at this time he is currently on it. Light catheter was placed. CBI was started. CT scan shows a 4 cm clot within the bladder. I turned to CBI off during the interview and there is continued hematuria. He will be taken the operating room today for cystoscopy with clot evacuation and fulguration of bleeders Review of Systems Review of Systems: All systems reviewed & are unremarkable except as noted in HPI and below PMFSH Past Medical History Medical History BPH (benign prostatic hyperplasia) CAD (coronary artery disease) Diabetes Hyperlipidemia Hypertension Myocardial infarct Neuropathy Peripheral vascular disease Proteinuria Surgical History Surgical History History of coronary artery stent placement Family History Family History Son Diabetes mellitus Father Heart disease Hypertension Sibling Heart disease Hypertension Social History Social History Smoking packs per day: 0.5 Smoking cigarettes per day: 10.0 Years smoked: 40 Smoking pack-years: 20.00 Smoking status: Current some day smoker Alcohol intake: current Substance use: never Substance use type: does not use Do You Feel Safe in your Home?: Yes Lack of Transportation: No Lack of Food: Never True Current Housing: I Have Housing Concerned About Future Housing: No Difficulty Paying Gas/Electric Bills: No Difficulty Paying for Meds: No Currently Unemployed: No Education: Trade/Vocational Certificate Difficulty w/ Childcare or Family Care: No Living arrangements: with family Additional living arrangements comments: Gender identity (if verbalized by the patient): Male Sexual Orientation (if Verbalized by the Patient): Straight or Heterosexual Spiritual care concerns: No Meds Home Medications and Allergies Home Medications Medication Instructions Recorded Confirmed Type amlodipine 10 mg tablet 10 mg PO QAM 05/22/20 10/27/24 History clopidogrel 75 mg tablet 75 mg PO DAILY 05/22/20 10/27/24 History lisinopril 5 mg tablet 5 mg PO QAM 05/22/20 10/27/24 History carvedilol 12.5 mg tablet 12.5 mg PO BID 09/18/22 10/27/24 History rosuvastatin 40 mg tablet 40 mg PO DAILY 07/13/23 10/27/24 History naproxen 500 mg tablet 500 mg PO BID PRN Pain 10/09/24 10/27/24 History sertraline 25 mg tablet 25 mg PO QAM 10/09/24 10/27/24 History valacyclovir 1 gram tablet 1,000 mg PO TID 10/09/24 10/27/24 History metformin 1,000 mg tablet 1,000 mg PO BID 10/27/24 10/27/24 History Allergies Allergy/AdvReac Type Severity Reaction Status Date / Time alcohol Allergy Severe AVOIDS Verified 10/27/24 01:50 meperidine Allergy Severe AVOIDS-DAUGHTER Verified 10/27/24 01:50 HAD GENETIC ADVERSE REACTION morphine Allergy Severe Unknown Verified 10/27/24 01:50 ibuprofen AdvReac Severe MIGRAINES, Verified 10/27/24 01:50 POS TIA ANESTHETIC MEDS Allergy AVOIDS Uncoded 10/27/24 01:50 AVOIDED-PSEUDOCHOLI ANESTHESIA R/T PSEUDOCHOLINESTERASE DEFICIENCY Vital Signs Vital Signs - 24 hr 10/26/24 19:01 10/27/24 00:08 10/27/24 00:17 Temperature 97.3 F L Pulse Rate 77 69 Respiratory Rate 18 13 Blood Pressure 168/80 H 149/77 H Pulse Oximetry 100 100 100 Oxygen Delivery Room Air 10/27/24 01:00 10/27/24 01:02 10/27/24 01:15 Temperature Pulse Rate 74 78 75 Respiratory Rate 14 15 16 Blood Pressure 175/97 H Pulse Oximetry 99 99 98 Oxygen Delivery 10/27/24 01:30 10/27/24 01:34 10/27/24 01:45 Temperature Pulse Rate 73 75 76 Respiratory Rate 12 13 14 Blood Pressure 133/97 H Pulse Oximetry 98 99 100 Oxygen Delivery 10/27/24 01:47 10/27/24 02:00 10/27/24 02:15 Temperature Pulse Rate 74 71 74 Respiratory Rate 14 15 13 Blood Pressure 147/84 H Pulse Oximetry 98 99 100 Oxygen Delivery 10/27/24 02:30 10/27/24 02:31 10/27/24 03:46 Temperature 97.4 F L Pulse Rate 76 75 74 Respiratory Rate 18 14 18 Blood Pressure 158/83 H 129/81 Pulse Oximetry 99 99 98 Oxygen Delivery 10/27/24 05:01 Temperature Pulse Rate Respiratory Rate Blood Pressure Pulse Oximetry Oxygen Delivery Room Air Exam Const: General: cooperative, healthy appearing, comfortable and no acute distress Nutritional Appearance: average body habitus and well nourished Orientation/consciousness: patient oriented x3 Limitations: no limitations HENMT: Head: normal to inspection Eyes: General: appearance normal, both eyes and all related structures Neck: Neck: normal visual inspection and full ROM Chest: Chest palpation & inspection: normal inspection of the chest Resp: Effort & Inspection: normal respiratory effort, able to speak in complete sentences, no cough and not labored GI: Inspection: normal to inspection, distended and incision ( well-healed) Urinary Catheter: Urinary Catheter: patent and draining and urine red Back/Spine/Pelvis: Back: no CVA tenderness Skin: General skin exam: normal color, no rashes or lesions noted and elasticity normal Neuro: General: patient oriented x3, tone normal and moves all extremities Extrem: General: normal to inspection and full ROM Psych: Appearance: grossly normal and well kempt Results Labs 10/27/24 06:04 10/27/24 00:02 Labs: Short CBC 10/27/24 10/27/24 Range/Units 00:02 06:04 WBC 9.3 (4.5-10.0) K/mm3 Hgb 13.4 L 12.5 L (14.0-18.0) g/dL Hct 39.2 L 37.6 L (42.0-52.0) % Plt Count 276 (150-375) k/mm3 BMP 10/27/24 00:02 Sodium 133 L Potassium 4.1 Chloride 100 Carbon Dioxide 27 BUN 25 H Creatinine 0.90 Glucose 295 H Calcium 8.9 Liver Function 10/27/24 Range/Units 00:02 Total Bilirubin 0.5 (0.2-1.3) mg/dL AST 26 (17-59) U/L ALT 23 (6-50) U/L Alkaline Phosphatase 73 (38-126) U/L Albumin 4.0 (3.5-5.1) g/dL Urine 10/27/24 Range/Units 00:02 Urine Color Red H (Yellow) Urine Appearance Turbid H (Clear) Urine pH TNP Ur Specific [place] 1.015 (1.001-1.035) Urine Protein 2+ H (Negative) mg/dL Urine Glucose (UA) Trace H (Negative) mg/dL Imaging My impression: CT scan reviewed by myself. Clot within the bladder
--- NOTE | 2024-10-27 08:13 | WPDHPUPDATE1 ---
History and Physical Update Update Date/Time: 10/27/24 08:13 History and Physical has been reviewed, including an updated exam of the patient. There are NO changes in the patient's condition. Risks, benefits, and alternatives have been discussed and questions answered. Patient agrees to proceed with procedure.
[2024-10-27 10:12] LABS: Glucose Point of Care 177 mg/dl (65-105)
[2024-10-27] MEDS: LACTATED RINGERS 1,000 ML 30 ML IV CONT (10:25)
--- NOTE | 2024-10-27 11:12 | WPDANESEPPF ---
Anes - Initial Pre Proc Eval Procedure: Operation Date: 10/27/24 12:45 Proposed Procedures p Cystoscopy, Evacuation Bladder Clots - Arash Ritchie MD Date/Time: 10/27/24 11:12 Surgeon: Chris Alexis MD Pre Op Diagnosis: Hematuria Patient Data Age: 69 Gender: M Height: 1.7 m Weight: 79.2 kg Last Vital Signs Temp 97.7 F 10/27/24 09:55 Pulse 69 10/27/24 09:55 Resp 20 10/27/24 09:55 BP 135/80 10/27/24 09:55 Pulse Ox 100 10/27/24 09:55 O2 Del Method Room Air 10/27/24 09:55 Allergies Allergy/AdvReac Type Severity Reaction Status Date / Time alcohol Allergy Severe AVOIDS Verified 10/27/24 01:50 meperidine Allergy Severe AVOIDS-DAUGHTER Verified 10/27/24 01:50 HAD GENETIC ADVERSE REACTION morphine Allergy Severe Unknown Verified 10/27/24 01:50 ibuprofen AdvReac Severe MIGRAINES, Verified 10/27/24 01:50 POS TIA ANESTHETIC MEDS Allergy AVOIDS Uncoded 10/27/24 01:50 AVOIDED-PSEUDOCHOLI ANESTHESIA R/T PSEUDOCHOLINESTERASE DEFICIENCY Home Medications Medication Instructions Recorded Confirmed Type amlodipine 10 mg tablet 10 mg PO QAM 05/22/20 10/27/24 History clopidogrel 75 mg tablet 75 mg PO DAILY 05/22/20 10/27/24 History lisinopril 5 mg tablet 5 mg PO QAM 05/22/20 10/27/24 History carvedilol 12.5 mg tablet 12.5 mg PO BID 09/18/22 10/27/24 History rosuvastatin 40 mg tablet 40 mg PO DAILY 07/13/23 10/27/24 History naproxen 500 mg tablet 500 mg PO BID PRN Pain 10/09/24 10/27/24 History sertraline 25 mg tablet 25 mg PO QAM 10/09/24 10/27/24 History valacyclovir 1 gram tablet 1,000 mg PO TID 10/09/24 10/27/24 History metformin 1,000 mg tablet 1,000 mg PO BID 10/27/24 10/27/24 History Laboratory Tests 10/27/24 10/27/24 10/27/24 00:02 06:04 10:09 WBC 9.3 K/mm3 (4.5-10.0) RBC 4.35 L M/mm3 (4.6-6.20) Hgb 13.4 L g/dL 12.5 L g/dL (14.0-18.0) (14.0-18.0) Hct 39.2 L % 37.6 L % (42.0-52.0) (42.0-52.0) MCV 90.1 fl (80-100) MCH 30.8 pg (26-34) MCHC 34.2 g/dl (32-36) RDW 12.1 % (11.5-14.5) Plt Count 276 k/mm3 (150-375) MPV 9.6 fl (7.4-10.4) Immature Gran % (Auto) 0.6 H % (0-0.5) Neut % (Auto) 59.5 % (45.5-73.1) Lymph % (Auto) 23.4 % (18.3-44.2) [place] % (Auto) 8.6 H % (2.6-8.5) Eos % (Auto) 7.4 H % (0-4.4) Baso % (Auto) 0.5 % (0.2-1.2) Lymph # (Auto) 2.16 K/mm3 (0.9-3.2) [place] # (Auto) 0.8 H K/mm3 (0.1-0.6) Eos # (Auto) 0.7 H K/mm3 (0-0.3) Baso # (Auto) 0.1 K/mm3 (0.0-0.1) Abs Immat Gran (auto) 0.06 H K/mm3 (0.00-0.031) Absolute Neuts (auto) 5.5 K/mm3 (1.3-6.7) Absolute Nucleated RBC 0.000 K/mm3 (0.0-0.012) Nucleated RBC % 0.0 % (0.0-0.2) % Immature Plt Fraction Infection Control Practitioner PT 14.9 H Seconds (11.1-14.7) INR 1.1 APTT 37.3 H Seconds (22.3-36.8) Sodium 133 L mmol/L (137-145) Potassium 4.1 mmol/L (3.4-5.0) Chloride 100 mmol/L (98-107) Carbon Dioxide 27 mmol/L (22-30) Anion Gap 6 mmol/L (4-12) BUN 25 H mg/dL (9-20) Creatinine 0.90 mg/dL (0.7-1.3) Estim Creat Clear Calc 62 ml/min Estimated GFR > 60 (59 - ) Glucose 295 H mg/dL (65-110) POC Capillary Glucose 177 H mg/dl (65-105) Lactic Acid 1.8 mmol/L (0.7-2.0) Calcium 8.9 mg/dL (8.4-10.2) Total Bilirubin 0.5 mg/dL (0.2-1.3) AST 26 U/L (17-59) ALT 23 U/L (6-50) Alkaline Phosphatase 73 U/L (38-126) Total Protein 7.0 g/dL (6.3-8.2) Albumin 4.0 g/dL (3.5-5.1) Urine Color Red H (Yellow) Urine Appearance Turbid H (Clear) Urine pH TNP Ur Specific [place] 1.015 (1.001-1.035) Urine Protein 2+ H mg/dL (Negative) Urine Glucose (UA) Trace H mg/dL (Negative) Urine Ketones Trace H mg/dL (Negative) Ur Blood (Man) 3+ H (Negative) Urine Nitrate Positive H (Negative) Urine Bilirubin 3+ H (Negative) Urine Urobilinogen 0.2 mg/dL (<2.0) Leukocyte Esterase Rfl 3+ H DIGNA/UL (Negative) Urine RBC >100 H /hpf (0-2) Urine WBC >100 H /hpf (0-3) Ur Squamous Epith Cells None seen /hpf (Few) Urine Bacteria 1+ H /hpf Urine Casts 0-2 Blood Type O Positive Antibody Screen Negative Patient hx anesthesia problems: pseudocholinesterase deficiency (Pts father and daughter, he has not been tested. ) Family hx anesthesia problems: none Results Review: All pre-operative results and documents have been reviewed as part of the pre-operative evaluation. FOR[facility], [facility] Past Medical History Medical History BPH (benign prostatic hyperplasia) CAD (coronary artery disease) Diabetes Family history of pseudocholinesterase deficiency Hyperlipidemia Hypertension Myocardial infarct Neuropathy Peripheral vascular disease Proteinuria TIA (transient ischemic attack) multiple Surgical History Surgical History History of coronary artery stent placement x1, 2015 Family History Family History Son Diabetes mellitus Father Heart disease Hypertension Sibling Heart disease Hypertension Social History Social History Smoking packs per day: 0.5 Smoking cigarettes per day: 10.0 Years smoked: 40 Smoking pack-years: 20.00 Smoking status: Current some day smoker Alcohol intake: current Substance use: never Substance use type: does not use Do You Feel Safe in your Home?: Yes Lack of Transportation: No Lack of Food: Never True Current Housing: I Have Housing Concerned About Future Housing: No Difficulty Paying Gas/Electric Bills: No Difficulty Paying for Meds: No Currently Unemployed: No Education: Trade/Vocational Certificate Difficulty w/ Childcare or Family Care: No Living arrangements: with family Additional living arrangements comments: Gender identity (if verbalized by the patient): Male Sexual Orientation (if Verbalized by the Patient): Straight or Heterosexual Spiritual care concerns: No Anes - Eval Final PreProcedure Day of Procedure 10/27/24 11:12 Patient weight: overweight Heart: regular rate and rhythm Lungs: clear to auscultation Airway: Mallampati scale and special considerations (Missing many on the lower aspect. None loose. ) Neurological: alert and oriented Last oral intake: >/= 8 hours ASA classification: III Emergent: no Anesthesia type and monitoring: general GIVS and LMA and standard monitoring Results Review: All pre-operative results and documents have been reviewed as part of the pre-operative evaluation. HTN, DM fsbs 177. Informed Consent: The patient's anesthetic plan and its attendant risks and benefits were discussed with the patient/family/POA. Questions were solicited and answers provided to the satisfaction of the patient/family/POA.
[2024-10-27] MEDS: LIDOCAINE HCL 2% GEL UROJET 10 ML PKG MUCOUS MEM (11:36)
--- NOTE | 2024-10-27 11:45 | W.PM.PROC2 ---
Procedure Note - Detailed Date of Procedure 10/27/24 Pre-op Diagnosis Gross hematuria Post-op Diagnosis Same Procedure Performed Cystoscopy evacuation of clots as well as bladder stone Surgeon Arash Ritchie MD Anesthesia MAC Indications This is a gentleman who was admitted with gross hematuria. There was several large clots in his bladder on CT scan. He presents for clot evacuation Findings Large amount of clot within the bladder. All this evacuated. No source of bleeding identified. Bladder stones extracted as well via irrigation Description of Procedure He correctly identified. Informed consent obtained. From the operating room. He was given monitored anesthesia care. He was placed in dorsal thigh position. He was prepped draped sterile fashion. Time-out performed. He was already on appropriate antibiotics. I performed cystoscopy. Upon entering the bladder there was a large amount of clot. I evacuated the clot with a [place] syringe as well as an elik evacuator. All clot was removed. I re-examined the bladder. There were a few small bladder stones were irrigated out as well. There is also some calcifications of his prostate. He is previous TURP of the prostate. He had moderate trabeculations. Few cellules. No tumors. Prostate again showed prior TURP defect. No active bleeding in the bladder or the prostate. I removed approximately 400 cc of blood clot. I examined the bladder and prostate again. Again there was no active bleeding. The irrigant was clear. I placed a 20 [place] catheter to gravity drainage. If remains clear can be removed today and hopefully patient discharged home. Estimated Blood Loss 0 Drains Yes (Light catheter) Pathology Yes (Bladder stone) Complications No immediate complications Condition Stable Disposition PACU
[2024-10-27 12:30] LABS: Glucose Point of Care 138 mg/dl (65-105)
[2024-10-27 13:54] LABS: Hematocrit 38.4 % (42.0-52.0); Hemoglobin 12.7 g/dL (14.0-18.0)
--- NOTE | 2024-10-27 14:51 | PM.IMPN ---
Progress Note: A&P Assessment and Plan (1) Hematuria: Code(s): R31.9 - Hematuria, unspecified Status: Acute Assessment and Plan: - Unclear etiology. - s/p Cystoscopy with Evacuation of clots as well as bladder stones. - No source of bleeding identified. - Will hold Plavix for now. - Maintain bee catheter and continue irrigation until urine clear. 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 (3) UTI (urinary tract infection): Code(s): N39.0 - Urinary tract infection, site not specified Status: Acute Assessment and Plan: - UA positive for possible UTI. - Currently on Ceftriaxone. - Follow cultures. (4) BPH (benign prostatic hyperplasia): Code(s): N40.0 - Benign prostatic hyperplasia without lower urinary tract symptoms Status: Acute Assessment and Plan: - s/p Cystoscopy with clots and stones evacuation. - Continue outpatient f/u with urologist. (5) Hypertension: Code(s): I10 - Essential (primary) hypertension Status: Acute Assessment and Plan: - BP appears well controlled. - Monitor for now. (6) CAD (coronary artery disease): Code(s): I25.10 - Atherosclerotic heart disease of [place] coronary artery without angina pectoris Status: Acute Assessment and Plan: - Appears stable. - Hold Clopidogrel for now. (7) Hyperlipidemia: Code(s): E78.5 - Hyperlipidemia, unspecified Status: Acute Assessment and Plan: - Resume statin. Plan Pt s/p cystoscopy with clots and stones evacuation. Continue bladder irrigation until urine clears. Possible discharge in AM. Time Spent With Patient Time with patient: 15 - 25 minutes Subjective Date/time seen: 10/27/24 14:51 Patient states he's feeling alright, only some soreness on his lower abdomen. Interval history: Patient calm on bedrest and looks to be in no acute distress. Review of Systems Review of Systems: All systems reviewed & are unremarkable except as noted in HPI and below Exam Narrative: General: Well appearing, no acute distress. HEENT: Atraumatic, PERRL, EOM, Moist mucosa. NECK: Supple. Lungs: Clear bilaterally. Heart: RRR, no murmurs. Abdomen: Soft, non-tender, non-distended, +ve bowel sounds X4 quadrants. Extremities: No clubbing or cyanosis, no edema. Skin: Warm, dry and intact. Neuro: Well oriented. CN II-XII grossly intact. Psych: Pleasant and co-operative. Objective Data Vital Signs Vital Signs: Vital Signs - 24 hr 10/26/24 19:01 10/27/24 00:08 10/27/24 00:17 Temperature 97.3 F L Pulse Rate 77 69 Respiratory Rate 18 13 Blood Pressure 168/80 H 149/77 H Pulse Oximetry 100 100 100 Oxygen Delivery Room Air Oxygen Flow Rate 10/27/24 01:00 10/27/24 01:02 10/27/24 01:15 Temperature Pulse Rate 74 78 75 Respiratory Rate 14 15 16 Blood Pressure 175/97 H Pulse Oximetry 99 99 98 Oxygen Delivery Oxygen Flow Rate 10/27/24 01:30 10/27/24 01:34 10/27/24 01:45 Temperature Pulse Rate 73 75 76 Respiratory Rate 12 13 14 Blood Pressure 133/97 H Pulse Oximetry 98 99 100 Oxygen Delivery Oxygen Flow Rate 10/27/24 01:47 10/27/24 02:00 10/27/24 02:15 Temperature Pulse Rate 74 71 74 Respiratory Rate 14 15 13 Blood Pressure 147/84 H Pulse Oximetry 98 99 100 Oxygen Delivery Oxygen Flow Rate 10/27/24 02:30 10/27/24 02:31 10/27/24 03:46 Temperature 97.4 F L Pulse Rate 76 75 74 Respiratory Rate 18 14 18 Blood Pressure 158/83 H 129/81 Pulse Oximetry 99 99 98 Oxygen Delivery Oxygen Flow Rate 10/27/24 05:01 10/27/24 08:00 10/27/24 09:55 Temperature 97.7 F Pulse Rate 74 69 Respiratory Rate 18 20 Blood Pressure 135/80 Pulse Oximetry 98 100 Oxygen Delivery Room Air Room Air Room Air Oxygen Flow Rate 10/27/24 11:46 10/27/24 12:00 10/27/24 12:15 Temperature 97.9 F Pulse Rate 58 L 59 L 59 L Respiratory Rate 12 12 12 Blood Pressure 91/58 L 105/62 123/71 Pulse Oximetry 100 100 100 Oxygen Delivery Simple Face Mask Simple Face Mask Simple Face Mask Oxygen Flow Rate 8 8 8 10/27/24 12:30 10/27/24 12:50 10/27/24 13:05 Temperature Pulse Rate 65 67 65 Respiratory Rate 14 20 19 Blood Pressure 147/75 H 152/81 H 144/82 H Pulse Oximetry 98 97 98 Oxygen Delivery Room Air Room Air Room Air Oxygen Flow Rate 10/27/24 13:20 10/27/24 14:00 Temperature 96.9 F L Pulse Rate 65 69 Respiratory Rate 12 13 Blood Pressure 125/84 136/72 Pulse Oximetry 98 99 Oxygen Delivery Room Air Oxygen Flow Rate Intake/Output Intake/Output: Intake & Output 10/24/24 10/25/24 10/26/24 10/27/24 23:59 23:59 23:59 23:59 Intake Total 1121.8 Output Total 1850 Balance -728.2 Meds/Results Medications: Active Medications Generic Name Dose Route Start Last Admin Trade Name Freq PRN Reason Stop Dose Admin Acetaminophen 650 mg 10/27/24 05:24 Acetaminophen 325 Mg Tablet PO Q4H PRN Mild Pain (1-3) or Fever Amlodipine Besylate 10 mg 10/28/24 09:00 Amlodipine Besylate 10 Mg Tablet PO QAM JOSE Carvedilol 12.5 mg 10/27/24 17:00 Carvedilol 12.5 Mg Tablet PO BID JOSE Hydromorphone HCl 0.5 mg 10/27/24 01:28 10/27/24 08:06 Hydromorphone Hcl Inj (*Crx) 1 Mg/Ml Syr IV PUSH 0.5 mg Q4H PRN Administration Pain Rated 7-10 Ceftriaxone Sodium 1 gm in 50 mls @ 100 mls/hr 10/27/24 22:00 Rocephin 1 Gm/Ns 50 Ml IVPB Q24H JOSE Sodium Chloride 1,000 mls @ 100 mls/hr 10/27/24 05:25 Normal Saline Iv IV CONT .Q10H JOSE Lisinopril 5 mg 10/28/24 09:00 Lisinopril 5 Mg Tablet PO QAM JOSE Metformin HCl 1,000 mg 10/27/24 17:00 Metformin Hcl 500 Mg Tablet PO BIDWM JOSE Ondansetron HCl 4 mg 10/27/24 01:28 Ondansetron Inj 4 Mg/2 Ml Vial IV PUSH Q4H PRN Nausea Rosuvastatin Calcium 40 mg 10/28/24 09:00 Rosuvastatin 20 Mg Tablet PO DAILY [facility] Sertraline HCl 25 mg 10/28/24 09:00 Sertraline Hcl 25 Mg Tablet PO QAM [facility] Valacyclovir HCl 1,000 mg 10/27/24 13:00 Valacyclovir Hcl 500 Mg Tablet PO TID [facility] Radiology Results: ITS Impressions Abdomen/Pelvis CT 10/27/24 05:54 Impression: 4.6 x 4.0 cm hyperdense masslike lesion in the urinary bladder is most compatible with hematoma/blood clot given rapid interval onset since recent prior exam from 10/02/2024. Markedly enlarged prostate gland. Labs Labs: Laboratory Results - last 24 hr 10/27/24 10/27/24 10/27/24 00:02 06:04 10:09 WBC 9.3 RBC 4.35 L Hgb 13.4 L 12.5 L Hct 39.2 L 37.6 L MCV 90.1 MCH 30.8 MCHC 34.2 RDW 12.1 Plt Count 276 MPV 9.6 Immature Gran % (Auto) 0.6 H Neut % (Auto) 59.5 Lymph % (Auto) 23.4 [place] % (Auto) 8.6 H Eos % (Auto) 7.4 H Baso % (Auto) 0.5 Lymph # (Auto) 2.16 [place] # (Auto) 0.8 H Eos # (Auto) 0.7 H Baso # (Auto) 0.1 Abs Immat Gran (auto) 0.06 H Absolute Neuts (auto) 5.5 Absolute Nucleated RBC 0.000 Nucleated RBC % 0.0 % Immature Plt Fraction [place] Attendant PT 14.9 H INR 1.1 APTT 37.3 H Sodium 133 L Potassium 4.1 Chloride 100 Carbon Dioxide 27 Anion Gap 6 BUN 25 H Creatinine 0.90 Estim Creat Clear Calc 62 Estimated GFR > 60 Glucose 295 H POC Capillary Glucose 177 H Lactic Acid 1.8 Calcium 8.9 Total Bilirubin 0.5 AST 26 ALT 23 Alkaline Phosphatase 73 Total Protein 7.0 Albumin 4.0 Urine Color Red H Urine Appearance Turbid H Urine pH TNP Ur Specific [place] 1.015 Urine Protein 2+ H Urine Glucose (UA) Trace H Urine Ketones Trace H Ur Blood (Man) 3+ H Urine Nitrate Positive H Urine Bilirubin 3+ H Urine Urobilinogen 0.2 Leukocyte Esterase Rfl 3+ H Urine RBC >100 H Urine WBC >100 H Ur Squamous Epith Cells None seen Urine Bacteria 1+ H Urine Casts 0-2 Blood Type O Positive Antibody Screen Negative 10/27/24 10/27/24 12:28 13:48 WBC RBC Hgb 12.7 L Hct 38.4 L MCV MCH MCHC RDW Plt Count MPV Immature Gran % (Auto) Neut % (Auto) Lymph % (Auto) [place] % (Auto) Eos % (Auto) Baso % (Auto) Lymph # (Auto) [place] # (Auto) Eos # (Auto) Baso # (Auto) Abs Immat Gran (auto) Absolute Neuts (auto) Absolute Nucleated RBC Nucleated RBC % % Immature Plt Fraction PT INR APTT Sodium Potassium Chloride Carbon Dioxide Anion Gap BUN Creatinine Estim Creat Clear Calc Estimated GFR Glucose POC Capillary Glucose 138 H Lactic Acid Calcium Total Bilirubin AST ALT Alkaline Phosphatase Total Protein Albumin Urine Color Urine Appearance Urine pH Ur Specific [place] Urine Protein Urine Glucose (UA) Urine Ketones Ur Blood (Man) Urine Nitrate Urine Bilirubin Urine Urobilinogen Leukocyte Esterase Rfl Urine RBC Urine WBC Ur Squamous Epith Cells Urine Bacteria Urine Casts Blood Type Antibody Screen Quality VTE Prophylaxis VTE prophylaxis: mechanical ordered Hospitalist MIPS Advance Care Plan I have confirmed that the patient's Advanced Care Plan is present, code status is documented, or surrogate decision maker is listed in patient medical record.: Yes Medication Reconciliation I have utilized all available resources to obtain, update and review the patients current medications (includes all prescriptions, OTC, herbals, cannabis, and nutritional supplements).: Yes
[2024-10-27] MEDS: carvediloL 12.5 MG TABLET PO (16:11)
[2024-10-27] MEDS: valACYclovir HCL 500 MG TABLET 1000 MG PO (16:11)
[2024-10-27] MEDS: metFORMIN HCL 500 MG TABLET 1000 MG PO (16:12)
[2024-10-27 19:31] LABS: Hematocrit 36.1 % (42.0-52.0)
[2024-10-27] MEDS: SODIUM CHLORIDE 0.9% IV 1,000 ML 100 ML IV CONT (21:57)
[2024-10-28 04:25] VITALS: BP 162/87; PULSE 80; RESP 16; TEMP 36.1; O2SAT 99
[2024-10-28 06:22] LABS: Basophils Absolute Auto 0.1 K/mm3 (0.0-0.1); Basophils Percent Auto 0.5 % (0.2-1.2); Eosinophils Absolute Auto 0.6 K/mm3 (0-0.3); Eosinophils Percent Auto 5.6 % (0-4.4); Hematocrit 36.9 % (42.0-52.0); Hemoglobin 12.2 g/dL (14.0-18.0); Immature Granulocyte Absolute 0.04 K/mm3 (0.00-0.031); Immature Granulocyte Percent A 0.4 % (0-0.5); Immature Platelet Fraction Pct 3.9 % (0.9-11.2); Lymphocytes Absolute Auto 2.06 K/mm3 (0.9-3.2); Lymphocytes Percent Auto 18.9 % (18.3-44.2); Mean Corpuscular HGB Conc 33.1 g/dl (32-36); Mean Corpuscular Hemoglobin 30.9 pg (26-34); Mean Corpuscular Volume 93.4 fl (80-100); Mean Platelet Volume 10.2 fl (7.4-10.4); Monocytes Absolute Auto 0.8 K/mm3 (0.1-0.6); Monocytes Percent Auto 7.3 % (2.6-8.5); Neutrophils Absolute Auto 7.3 K/mm3 (1.3-6.7); Neutrophils Percent Auto 67.3 % (45.5-73.1); Platelet Count Result 265 k/mm3 (150-375); Red Blood Count 3.95 M/mm3 (4.6-6.20); Red Cell Distribution Width 12.2 % (11.5-14.5); White Blood Count 10.9 K/mm3 (4.5-10.0)
[2024-10-28 06:37] LABS: Alanine Aminotransferase 27 U/L (6-50); Albumin Level 4.1 g/dL (3.5-5.1); Alkaline Phosphatase 76 U/L (38-126); Anion Gap 2 mmol/L (4-12); Aspartate Amino Transferase 30 U/L (17-59); Bilirubin,Total 0.7 mg/dL (0.2-1.3); Blood Urea Nitrogen 16 mg/dL (9-20); Calcium 8.9 mg/dL (8.4-10.2); Carbon Dioxide 31 mmol/L (22-30); Chloride 102 mmol/L (98-107); Estimated CRCL calculation 69 ml/min; Estimated Glomerular Filt Rate > 60; Glucose 172 mg/dL (65-110); Potassium 4.3 mmol/L (3.4-5.0); Sodium 135 mmol/L (137-145)
[2024-10-28 08:00] VITALS: PULSE 75; RESP 16; O2SAT 99
[2024-10-28] MEDS: metFORMIN HCL 500 MG TABLET 1000 MG PO (08:43)
[2024-10-28] MEDS: ROSUVASTATIN 20 MG TABLET 40 MG PO (08:43)
[2024-10-28 08:44] VITALS: PULSE 75
[2024-10-28] MEDS: SERTRALINE HCL 25 MG TABLET PO (08:44)
[2024-10-28] MEDS: carvediloL 12.5 MG TABLET PO (08:44)
[2024-10-28] MEDS: amLODIPine BESYLATE 10 MG TABLET PO (08:44)
[2024-10-28] MEDS: lisinopriL 5 MG TABLET PO (08:44)
--- NOTE | 2024-10-28 10:43 | PM.DS ---
DS: Admitting Diagnosis Discharge Date 10/28/2024 Admitting Diagnosis Hematuria DS: Discharge Diagnosis Discharge Diagnosis (1) Hematuria: Code(s): R31.9 - Hematuria, unspecified Status: Acute Assessment and Plan: - Unclear etiology. - s/p Cystoscopy with Evacuation of clots and bladder stones. - No source of bleeding identified. - Will continue to hold Plavix for now. - Light catheter discontinued after bladder irrigation and clear urine observed. - Patient cleared for discharge per urologist. (2) Antiplatelet or antithrombotic long-term use: Code(s): Z79.02 - alf (current) use of antithrombotics/antiplatelets Status: Acute Assessment and Plan: - Hold Clopidogrel for now. (3) UTI (urinary tract infection): Code(s): N39.0 - Urinary tract infection, site not specified Status: Acute Assessment and Plan: - UA positive for possible UTI. - Currently on Ceftriaxone. - Will be discharged on Cipro to complete abx treatment. - Follow cultures and adjust abx if needed. (4) BPH (benign prostatic hyperplasia): Code(s): N40.0 - Benign prostatic hyperplasia without lower urinary tract symptoms Status: Acute Assessment and Plan: - s/p Cystoscopy with clots and stones evacuation. - Continue outpatient f/u with urologist. (5) Hypertension: Code(s): I10 - Essential (primary) hypertension Status: Acute Assessment and Plan: - BP appears well controlled inpatient. - Resume home meds. (6) CAD (coronary artery disease): Code(s): I25.10 - Atherosclerotic heart disease of [place] coronary artery without angina pectoris Status: Acute Assessment and Plan: - Appears stable. - Hold Clopidogrel for now. - Continue Coreg and statin. (7) Hyperlipidemia: Code(s): E78.5 - Hyperlipidemia, unspecified Status: Acute Assessment and Plan: - Resume statin. Plan Discharge home. DS: Summary Hospital Course Reason for hospitalization: Hematuria. Hospital Course: Patient presented to the ER with some lower abdominal pain and hematuria, that started the day prior to his presentation. Patient has a Hx of BPH with previous TURP. He was admitted for management of symptoms, with the urologist consulted for recommendations. Patient underwent a cystoscopy and was observed with numerous blood clots and bladder stones, that were evacuated. No active or source of bleeding was identified. Patient had continuous bladder irrigation done and his urine is clear now. He denies any pain, only some mild discomfort to his abdomen post-procedure, which is expected per urologist. Patient's UA was suspicious for possible UTI and he was treated with Ceftriaxone and will be discharged on Cipro as we follow cultures. Patient has been cleared for discharge per urologist and is medically stable for discharge, with no acute distress noted or reported prior to discharge. Status at Discharge Functional status at discharge: independent ambulation Overall status at discharge: patient is progressing back to baseline Time Spent with Patient Time attestation: Total time spent providing and/or coordinating discharge services: Time spent: Less than 30 minutes Exam Narrative: General: Well appearing, no acute distress. HEENT: Atraumatic, PERRL, EOM, Moist mucosa. NECK: Supple. Lungs: Clear bilaterally. Heart: RRR, no murmurs. Abdomen: Soft, non-tender, non-distended, +ve bowel sounds X4 quadrants. Extremities: No clubbing or cyanosis, no edema. Skin: Warm, dry and intact. Neuro: Well oriented. CN II-XII grossly intact. Psych: Pleasant and co-operative. DS: Data Data Completed and Pending Pending studies at discharge: Pending at discharge 10/27/24 11:37 Surgical [PTH] Routine Labs on day of discharge: Labs from last 24 hours 10/28/24 10/27/24 10/27/24 06:08 19:16 13:48 WBC 10.9 H RBC 3.95 L Hgb 12.2 L 12.0 L 12.7 L Hct 36.9 L 36.1 L 38.4 L MCV 93.4 MCH 30.9 MCHC 33.1 RDW 12.2 Plt Count 265 MPV 10.2 Immature Gran % (Auto) 0.4 Neut % (Auto) 67.3 Lymph % (Auto) 18.9 [place] % (Auto) 7.3 Eos % (Auto) 5.6 H Baso % (Auto) 0.5 Lymph # (Auto) 2.06 [place] # (Auto) 0.8 H Eos # (Auto) 0.6 H Baso # (Auto) 0.1 Abs Immat Gran (auto) 0.04 H Absolute Neuts (auto) 7.3 H Absolute Nucleated RBC 0.000 Nucleated RBC % 0.0 % Immature Plt Fraction 3.9 Sodium 135 L Potassium 4.3 Chloride 102 Carbon Dioxide 31 H Anion Gap 2 L BUN 16 Creatinine 0.80 Estim Creat Clear Calc 69 Estimated GFR > 60 Glucose 172 H POC Capillary Glucose Calcium 8.9 Total Bilirubin 0.7 AST 30 ALT 27 Alkaline Phosphatase 76 Total Protein 6.0 L Albumin 4.1 10/27/24 12:28 WBC RBC Hgb Hct MCV MCH MCHC RDW Plt Count MPV Immature Gran % (Auto) Neut % (Auto) Lymph % (Auto) [place] % (Auto) Eos % (Auto) Baso % (Auto) Lymph # (Auto) [place] # (Auto) Eos # (Auto) Baso # (Auto) Abs Immat Gran (auto) Absolute Neuts (auto) Absolute Nucleated RBC Nucleated RBC % % Immature Plt Fraction Sodium Potassium Chloride Carbon Dioxide Anion Gap BUN Creatinine Estim Creat Clear Calc Estimated GFR Glucose POC Capillary Glucose 138 H Calcium Total Bilirubin AST ALT Alkaline Phosphatase Total Protein Albumin Discharge Plan Discharge Attending physician on discharge: Nawaf White Consulting providers: Dwain Leonard Discharging Clinician: Greg Oviedo Anticipated Discharge Date/Time: 10/28/24 11:07 Patient Disposition: Home, Self-Care Activity: as tolerated Diet: heart healthy and diabetic Patient Instructions: Antibiotic Form, Clopidogrel (By mouth), Pain Management (DC) Stand Alone Forms: General Discharge Information Follow-up/Referrals: Sean,MD Onel [Primary Care Provider] - 1 Week Discharge Medications: New ciprofloxacin HCl 500 mg tablet 500 mg PO Q12H Qty: 10 0RF Continued rosuvastatin 40 mg tablet 40 mg PO DAILY amlodipine 10 mg tablet 10 mg PO QAM lisinopril 5 mg tablet 5 mg PO QAM carvedilol 12.5 mg tablet 12.5 mg PO BID valacyclovir 1 gram tablet 1,000 mg PO TID sertraline 25 mg tablet 25 mg PO QAM metformin 1,000 mg tablet 1,000 mg PO BID Held clopidogrel 75 mg tablet 75 mg PO DAILY Hold Instructions: Resume on 10/16/24. Discontinued naproxen 500 mg tablet 500 mg PO BID PRN (Reason: Pain) Date of admission: 10/27/24 01:28 Primary Care Provider: Sean,Onel Admitting Provider: Chris Alexis Attending physician on admission: Chris Alexis Condition: Stable Quality If No VTE Prophylaxis Answer both mechanical and pharmacologic: Reason no mechanical VTE proph: low risk/not indicated Reason no pharmacologic proph: low risk/not indicated Hospitalist MIPS Heart Failure (Exclusion) Patient has history of Heart Transplant or Left Ventricular Assistive Device?: Yes IF YES, STOP HERE Heart Failure (Qualifier) Patient has current or prior documentation of LVEF less than or equal to 40%, or mod/servere depressed LVSF?: Yes IF NO, STOP HERE If Yes, Heart Failure (Qualifier) Patient was prescribed or already taking an Angiotensin-Converting Enzyme ([place]) Inhibitor, or Antiotensin Receptor Maura (ARB): Yes Patient was prescribed or already taking bisoprolol, carvedilol, or sustained release metoprolol succinate: Yes
== END 2024-10-28 11:40 | disposition home or self-care (01) ==
LOC: ANHED 10-27 01:33 → ANH3MEDSUR 10-27 02:26
PROVIDERS: Urology; Admitting Provider Internal Medicine; Emergency Provider Emergency Medicine; PCP Internal Medicine; Visit Provider Internal Medicine
PROC: 0TCB8ZZ Extirpation of Matter from Bladder, Via Natural or Artificial Opening Endoscopic (ICD-10-PCS; CPT 52001; principal; 2024-10-27 12:45)
DX: N39.0 Urinary tract infection, site not specified (principal); R31.0 Gross hematuria; I10 Essential (primary) hypertension; E78.5 Hyperlipidemia, unspecified; E11.51 Type 2 diabetes mellitus with diabetic peripheral angiopathy without gangrene; I25.10 Atherosclerotic heart disease of native coronary artery without angina pectoris; I25.2 Old myocardial infarction; N40.0 Benign prostatic hyperplasia without lower urinary tract symptoms; Z95.5 Presence of coronary angioplasty implant and graft; Z79.02 Long term (current) use of antithrombotics/antiplatelets; Z79.84 Long term (current) use of oral hypoglycemic drugs; F17.210 Nicotine dependence, cigarettes, uncomplicated
CPT/HCPCS: 52310; 36415; 74176; 80053; 81001; 82365; 82948; 83605; 85014; 85018; 85025; 85055; 85610; 85730; 86850; 86900; 86901; 87086; 88300; 96365; 96375; 99285; A9270; G0378; J0696; J1171; J2003; J2405; J2704; J3010; J7030; J7120

== ENCOUNTER 2024-10-29 08:28 | Inpatient (IN) | payer MEDICARE, SELFPAY ==
[2024-10-29] VITALS (19 sets, daily range): BP systolic 109–159; BP diastolic 73–89; PULSE 67–81; RESP 16–18; TEMP 36.5–37.1; O2SAT 95–100; BMI 29.2
--- NOTE | ~2024-10-29 | CT_ITS ---
EXAMINATION: CT abdomen pelvis w con DATE: 10/29/2024 10:45 INDICATION: Hematuria. TECHNIQUE: Computed tomography (CT) of the abdomen and pelvis was performed with 100 mL Omnipaque 350 intravenous contrast. Automated exposure control and iterative reconstruction technique were employe d. The dose-length product was 558.37 mGy-cm. COMPARISON: CT abdomen and pelvis 10/26/2024 FINDINGS: The visualized portions of the lung bases are clear without pneumonia or pleural effusion. The heart size is normal. There are coronary artery calcifications. There is a trace pericardial effu ernie. There is a small sliding hiatal hernia. The liver is normal. There are changes of cholecystecto my. The spleen, pancreas, and left adrenal gland are normal. There is a 2.0 cm mass in right adrenal gland that measured low attenuation on the prior noncontrast CT, consistent with an adenoma. There ar e cysts in the kidneys measuring up to 6.2 cm on the left. The prostate is moderately enlarged. There are no dilated loops of bowel. The appendix is normal. There are no pathologically enlarged lymph no yoselin. There is no free intraperitoneal fluid. There is a small volume of hematoma in the bladder. Ther e is severe lower lumbar spondylosis. There is a chronic left L5 pars defect. IMPRESSION: 1. Small volume of hematoma in the bladder. Reviewed, dictated and finalized at location A. [facility] [employer]
--- NOTE | 2024-10-29 08:47 | PC.NURSE ---
Patient states he recently had his gallbladder removed 2 weeks ago here at this hospital. Patient states Dr Mckeon did the procedure.
--- NOTE | 2024-10-29 08:49 | PC.NURSE ---
Patient's abdomen is distended as well
[2024-10-29 09:11] LABS: Bacteria Urine None Seen /hpf; Need Manual Microscopic Reviewed; Non Pathogenic Casts 0-2; RBC Urine >100 /hpf (0-2); Squamous Epithelial Cell Urine None Seen /hpf (Few)
[2024-10-29 09:12] LABS: Add Urine Microscopic? YES; Appearance Urine Turbid (Clear); Color Urine Red (Yellow); Specific Grav Ur 1.022 (1.001-1.035); pH Urine 6.5 (5.0-9.0)
--- NOTE | 2024-10-29 09:17 | ED_ITS ---
HPI - General Adult General Chief complaint: Urogenital-Male Stated complaint: hematuria Time Seen by Provider: 10/29/24 08:50 History of Present Illness HPI narrative: 69-year-old male presents to the emergency department for evaluation for recurrent hematuria. Patient was recently evaluated emergency department for significant hematuria and was found have a large amount of clot within the bladder. Patient was admitted for clot evacuation along with some bladder stones. Patient was discharged home yesterday as his urine was running clear. Patient is currently on antibiotics for underlying urinary tract infection. Patient just started these antibiotics yesterday. Patient woke up this morning and noticed the hematuria. Patient states he had some blood in his urine this morning when he urinated and then had more blood in his urine upon arrival to the emergency department. Does have some right-sided abdominal pain that has been persistent since his gallbladder surgery approximately 2 weeks ago. Related Data Home Medications Medication Instructions Recorded Confirmed amlodipine 10 mg tablet 10 mg PO QAM 05/22/20 10/29/24 clopidogrel 75 mg tablet 75 mg PO DAILY 05/22/20 10/29/24 lisinopril 5 mg tablet 5 mg PO QAM 05/22/20 10/29/24 carvedilol 12.5 mg tablet 12.5 mg PO BID 09/18/22 10/29/24 rosuvastatin 40 mg tablet 40 mg PO DAILY 07/13/23 10/29/24 sertraline 25 mg tablet 25 mg PO QAM 10/09/24 10/29/24 metformin 1,000 mg tablet 1,000 mg PO BID 10/27/24 10/29/24 Allergies Allergy/AdvReac Type Severity Reaction Status Date / Time meperidine Allergy Severe AVOIDS-DAUGHTER Verified 10/29/24 08:31 HAD GENETIC ADVERSE REACTION morphine Allergy Severe Unknown Verified 10/29/24 08:31 ibuprofen AdvReac Severe MIGRAINES, Verified 10/29/24 08:31 POS TIA ANESTHETIC MEDS Allergy AVOIDS Uncoded 10/29/24 08:31 AVOIDED-PSEUDOCHOLI ANESTHESIA R/T PSEUDOCHOLINESTERASE DEFICIENCY Review of Systems Review of Systems: All systems reviewed & are unremarkable except as noted in HPI and below [facility] Past Medical History Medical History (Updated 10/29/24 @ 13:17 by Joselin Dejesus APRN) BPH (benign prostatic hyperplasia) CAD (coronary artery disease) Chronic cholecystitis with calculus s/p cholecystectomy Diabetes Family history of pseudocholinesterase deficiency Hyperlipidemia Hypertension Myocardial infarct Neuropathy Peripheral vascular disease Proteinuria TIA (transient ischemic attack) multiple Surgical History Surgical History (Updated 10/29/24 @ 13:17 by Joselin Dejesus APRN) History of cholecystectomy History of coronary artery stent placement [id number] History of transurethral resection of prostate Family History Family History Son Diabetes mellitus Father Heart disease Hypertension Sibling Heart disease Hypertension Social History Social History Smoking packs per day: 0.5 Smoking cigarettes per day: 10.0 Years smoked: 40 Smoking pack-years: 20.00 Smoking status: Never smoker Alcohol intake: never Substance use: never Substance use type: does not use Do You Feel Safe in your Home?: Yes Lack of Transportation: No Lack of Food: Never True Current Housing: I Have Housing Concerned About Future Housing: No Difficulty Paying Gas/Electric Bills: No Difficulty Paying for Meds: No Currently Unemployed: No Education: Don't Know Difficulty w/ Childcare or Family Care: No Living arrangements: with family Additional living arrangements comments: Gender identity (if verbalized by the patient): Male Sexual Orientation (if Verbalized by the Patient): Straight or Heterosexual Spiritual care concerns: No Exam Narrative: APPEARANCE: Well appearing, no pain, no distress, well-nourished. HEAD: normocephalic, atraumatic. EYES: PERRLA/EOMI, conjunctivae clear. NOSE: Normal no drainage EARS:TMS clear with good light reflex. THROAT: Pharynx clear, no exudate. NECK: Supple. No adenopathy, no masses. RESPIRATORY: Airway patent, respirations nonlabored. Clear to auscultation bilaterally, no rales, rhonchi, wheezing. CARDIOVASCULAR: Regular rate and rhythm without murmurs rubs or gallops. ABDOMINAL: Soft, nontender, nondistended, normal bowel sounds MUSCULOSKELETAL: Moves all extremities. Strength/ROM intact, No edema, No calf tenderness. NEURO: Alert. Cranial nerves II through XII intact. Good gait. Good coordination SKIN: Warm, dry. Normal Color PSYCHIATRIC: Normal affect/mood. Course Vital Signs Vital signs: Vital Signs Pulse Oximetry 100 10/29/24 08:48 Temperature 97.7 F 10/29/24 09:08 Pulse Rate 77 10/29/24 16:39 Respiratory Rate 18 10/29/24 13:43 Blood Pressure 150/83 H 10/29/24 13:43 Pulse Oximetry 100 10/29/24 15:23 Oxygen Delivery Room Air 10/29/24 15:23 Medical Decision Making MDM Narrative Medical decision making narrative: 69-year-old male presenting to the emergency department for evaluation for recurrent hematuria. Patient was discharged from the hospital or yesterday. This morning patient had recurrence of the hematuria. CT scan done in the ED does show a small hematoma. Case was discussed with Urology they recommended placing the 3 way catheter for continuous bladder irrigation admission to the hospitalist. Case was discussed with hospitalist and patient was accepted. Patient family are comfortable with plan for admission and further evaluation including cystoscopy. All questions concerns were addressed. Differential Diagnosis Differential Diagnosis: Hematuria, hematoma bladder, urinary retention Vital Signs Vital Signs: Vital Signs Pulse Oximetry 100 10/29/24 08:48 Temperature 97.7 F 10/29/24 09:08 Pulse Rate 77 10/29/24 16:39 Respiratory Rate 18 10/29/24 13:43 Blood Pressure 150/83 H 10/29/24 13:43 Pulse Oximetry 100 10/29/24 15:23 Oxygen Delivery Room Air 10/29/24 15:23 Lab Data Lab results reviewed: Yes I reviewed the patient's lab results. 10/29/24 09:58 10/29/24 09:58 Labs: Lab Results 10/29/24 10/29/24 Range/Units 08:36 09:58 WBC 8.7 (4.5-10.0) K/mm3 RBC 4.00 L (4.6-6.20) M/mm3 Hgb 12.2 L (14.0-18.0) g/dL Hct 36.6 L (42.0-52.0) % MCV 91.5 (80-100) fl MCH 30.5 (26-34) pg MCHC 33.3 (32-36) g/dl RDW 12.2 (11.5-14.5) % Plt Count 266 (150-375) k/mm3 MPV 9.7 (7.4-10.4) fl Immature Gran % (Auto) 0.6 H (0-0.5) % Neut % (Auto) 71.0 (45.5-73.1) % Lymph % (Auto) 15.9 L (18.3-44.2) % [place] % (Auto) 6.9 (2.6-8.5) % Eos % (Auto) 5.3 H (0-4.4) % Baso % (Auto) 0.3 (0.2-1.2) % Lymph # (Auto) 1.39 (0.9-3.2) K/mm3 [place] # (Auto) 0.6 (0.1-0.6) K/mm3 Eos # (Auto) 0.5 H (0-0.3) K/mm3 Baso # (Auto) 0.0 (0.0-0.1) K/mm3 Abs Immat Gran (auto) 0.05 H (0.00-0.031) K/mm3 Absolute Neuts (auto) 6.2 (1.3-6.7) K/mm3 Absolute Nucleated RBC 0.000 (0.0-0.012) K/mm3 Nucleated RBC % 0.0 (0.0-0.2) % PT 15.3 H (11.1-14.7) Seconds INR 1.2 APTT 38.1 H (22.3-36.8) Seconds Sodium 136 L (137-145) mmol/L Potassium 4.1 (3.4-5.0) mmol/L Chloride 101 (98-107) mmol/L Carbon Dioxide 31 H (22-30) mmol/L Anion Gap 4 (4-12) mmol/L BUN 17 (9-20) mg/dL Creatinine 0.80 (0.7-1.3) mg/dL Estim Creat Clear Calc 69 ml/min Estimated GFR > 60 (59 - ) Glucose 232 H (65-110) mg/dL Calcium 9.1 (8.4-10.2) mg/dL Total Bilirubin 0.4 (0.2-1.3) mg/dL AST 26 (17-59) U/L ALT 21 (6-50) U/L Alkaline Phosphatase 67 (38-126) U/L Total Protein 7.0 (6.3-8.2) g/dL Albumin 4.0 (3.5-5.1) g/dL Urine Color Red H (Yellow) Urine Appearance Turbid H (Clear) Urine pH 6.5 (5.0-9.0) Ur Specific [place] 1.022 (1.001-1.035) Urine Protein TNP Urine Glucose (UA) TNP Urine Ketones TNP Ur Blood (Man) TNP Urine Nitrate TNP Urine Bilirubin TNP Urine Urobilinogen TNP Add Ur Microanalysis Reviewed Leukocyte Esterase Rfl TNP Urine RBC >100 H (0-2) /hpf Urine WBC 11-20 H (0-3) /hpf Ur Squamous Epith Cells None seen (Few) /hpf Urine Bacteria None seen /hpf Urine Casts 0-2 Imaging Data Radiologist's impression: Impressions Abdomen/Pelvis CT 10/29/24 10:58 IMPRESSION: 1. Small volume of hematoma in the bladder. Discharge Plan Discharge Clinical Impression: Hematuria Qualifiers: Hematuria type: gross Qualified Code(s): R31.0 - Gross hematuria Patient Disposition: Still a Patient Condition: Stable
[2024-10-29 10:12] LABS: Basophils Percent Auto 0.3 % (0.2-1.2); Eosinophils Absolute Auto 0.5 K/mm3 (0-0.3); Eosinophils Percent Auto 5.3 % (0-4.4); Hematocrit 36.6 % (42.0-52.0); Hemoglobin 12.2 g/dL (14.0-18.0); Immature Granulocyte Absolute 0.05 K/mm3 (0.00-0.031); Immature Granulocyte Percent A 0.6 % (0-0.5); Lymphocytes Absolute Auto 1.39 K/mm3 (0.9-3.2); Lymphocytes Percent Auto 15.9 % (18.3-44.2); Mean Corpuscular HGB Conc 33.3 g/dl (32-36); Mean Corpuscular Hemoglobin 30.5 pg (26-34); Mean Corpuscular Volume 91.5 fl (80-100); Mean Platelet Volume 9.7 fl (7.4-10.4); Monocytes Absolute Auto 0.6 K/mm3 (0.1-0.6); Monocytes Percent Auto 6.9 % (2.6-8.5); Neutrophils Absolute Auto 6.2 K/mm3 (1.3-6.7); Platelet Count Result 266 k/mm3 (150-375); Red Cell Distribution Width 12.2 % (11.5-14.5); White Blood Count 8.7 K/mm3 (4.5-10.0)
[2024-10-29 10:23] LABS: Alanine Aminotransferase 21 U/L (6-50); Alkaline Phosphatase 67 U/L (38-126); Anion Gap 4 mmol/L (4-12); Aspartate Amino Transferase 26 U/L (17-59); Bilirubin,Total 0.4 mg/dL (0.2-1.3); Blood Urea Nitrogen 17 mg/dL (9-20); Calcium 9.1 mg/dL (8.4-10.2); Carbon Dioxide 31 mmol/L (22-30); Chloride 101 mmol/L (98-107); Estimated CRCL calculation 69 ml/min; Estimated Glomerular Filt Rate > 60; Glucose 232 mg/dL (65-110); Potassium 4.1 mmol/L (3.4-5.0); Sodium 136 mmol/L (137-145)
[2024-10-29 10:30] LABS: INR 1.2; Prothrombin Time 15.3 Seconds (11.1-14.7)
[2024-10-29 10:31] LABS: Partial Thromboplastin Time 38.1 Seconds (22.3-36.8)
--- NOTE | 2024-10-29 12:55 | P.HP_ITS ---
H&P: HPI History of Present Illness Date/Time: 10/29/24 12:55 Chief Complaint: Hematuria Narrative: 69 y/o M presents here with hematuria with PMH of BPH, CAD, diabetes, hyperlipidemia, hypertension, myocardial infarction, peripheral vascular disease, and TIA. The patient presents here from home for further evaluation of hematuria. He reports acute onset of hematuria 30 minutes prior to arrival to the emergency department, estimates this was around 8:30 a.m. The patient was initially admitted to [facility] on 10/27 for same complaint of hematuria and was discharged on 10/28. During his hospital course his workup was concerning for a UTI for which he was discharged on Cipro. No urine culture was obtained at that time. He also underwent a cystoscopy which showed a large amount of clot within the bladder which was evacuated, no source of bleeding identified, bladder stones extracted as well via irrigation. Postprocedure the patient had his Light discontinued and clear urine was observed. Patient's Plavix was held and patient was instructed to follow up with Urology outpatient. However he is returning today due to the recurrent hematuria that is now company by right flank pain that radiates into his abdomen. He describes this pain as achy, sore, radiation into the RUQ, constant, and no aggravating or alleviating factors. He reports he has still been holding his Plavix and has been compliant with his antibiotic course. Initial VS at presentation: 97.7? F, HR 81, RR 18, 139/89, and 99% on RA. ED workup showed: WBC 8.7, hemoglobin 12.2 (previously 4.2 on 10/28/2024), INR 1.2, sodium 136, creatinine 0.8 and GFR >60, glucose 232, and UA showed a red turbid appearance, greater than 100 RBC, 11-20 WBC, no epithelial cells, no bacteria. Review of Systems Review of Systems: All systems reviewed & are unremarkable except as noted in HPI and below PMFSH Past Medical History Medical History (Updated 10/29/24 @ 13:17 by Joselin Dejesus, NAVA) BPH (benign prostatic hyperplasia) CAD (coronary artery disease) Chronic cholecystitis with calculus s/p cholecystectomy Diabetes Family history of pseudocholinesterase deficiency Hyperlipidemia Hypertension Myocardial infarct Neuropathy Peripheral vascular disease Proteinuria TIA (transient ischemic attack) multiple Surgical History Surgical History (Updated 10/29/24 @ 13:17 by Joselin Dejesus APRN) History of cholecystectomy History of coronary artery stent placement x1, 2015 History of transurethral resection of prostate Family History Family History Son Diabetes mellitus Father Heart disease Hypertension Sibling Heart disease Hypertension Social History Social History Smoking packs per day: 0.5 Smoking cigarettes per day: 10.0 Years smoked: 40 Smoking pack-years: 20.00 Smoking status: Never smoker Alcohol intake: never Substance use: never Substance use type: does not use Do You Feel Safe in your Home?: Yes Lack of Transportation: No Lack of Food: Never True Current Housing: I Have Housing Concerned About Future Housing: No Difficulty Paying Gas/Electric Bills: No Difficulty Paying for Meds: No Currently Unemployed: No Education: Don't Know Difficulty w/ Childcare or Family Care: No Living arrangements: with family Additional living arrangements comments: Gender identity (if verbalized by the patient): Male Sexual Orientation (if Verbalized by the Patient): Straight or Heterosexual Spiritual care concerns: No Meds Home Medications and Allergies Home Medications Medication Instructions Recorded Confirmed Type amlodipine 10 mg tablet 10 mg PO QAM 05/22/20 10/29/24 History clopidogrel 75 mg tablet 75 mg PO DAILY 05/22/20 10/29/24 History lisinopril 5 mg tablet 5 mg PO QAM 05/22/20 10/29/24 History carvedilol 12.5 mg tablet 12.5 mg PO BID 09/18/22 10/29/24 History rosuvastatin 40 mg tablet 40 mg PO DAILY 07/13/23 10/29/24 History sertraline 25 mg tablet 25 mg PO QAM 10/09/24 10/29/24 History metformin 1,000 mg tablet 1,000 mg PO BID 10/27/24 10/29/24 History ciprofloxacin HCl 500 mg tablet 500 mg PO Q12H #10 tabs 10/28/24 10/29/24 Rx Allergies Allergy/AdvReac Type Severity Reaction Status Date / Time meperidine Allergy Severe AVOIDS-DAUGHTER Verified 10/29/24 08:31 HAD GENETIC ADVERSE REACTION morphine Allergy Severe Unknown Verified 10/29/24 08:31 ibuprofen AdvReac Severe MIGRAINES, Verified 10/29/24 08:31 POS TIA ANESTHETIC MEDS Allergy AVOIDS Uncoded 10/29/24 08:31 AVOIDED-PSEUDOCHOLI ANESTHESIA R/T PSEUDOCHOLINESTERASE DEFICIENCY Vital Signs Vital Signs - 24 hr 10/29/24 09:08 Temperature 97.7 F Pulse Rate 81 Respiratory Rate 18 Blood Pressure 139/89 Pulse Oximetry 99 Exam Const: General: comfortable and no acute distress Other: , male, nontoxic appearance HENMT: Face/Nose/Sinus: Normal nares present Mouth: Yes moist mucous membranes Eyes: General: appearance normal, both eyes and all related structures Sclera: sclerae normal Pupils: Equal, round and reactive pupils present EOM: EOMs intact bilaterally Resp: Effort & Inspection: normal respiratory effort Auscultation: clear to auscultation bilaterally Cardio: Rate: regular rate Rhythm: regular rhythm GI: Other: Abdomen mildly distended, mildly firm. Laparoscopic incisions are CDI, glued. No erythema or drainage. Moderate tenderness to the right mid/lateral quadrant. Normoactive bowel sounds in all quadrants. Urinary Catheter: Urinary Catheter: patent and draining and urine clear Skin: General skin exam: normal color and no rashes or lesions noted Wounds: no wounds Neuro: Speech: normal speech Motor exam (neuro): 5/5 motor strength present throughout Sensory Exam: normal sensation Other: A&O x4 Extrem: General: normal to inspection Psych: Mental Status: mental status grossly normal Affect: normal affect Other: Good insight and judgment, pleasant H&P: Results Labs Labs: Short CBC 10/29/24 Range/Units 09:58 WBC 8.7 (4.5-10.0) K/mm3 Hgb 12.2 L (14.0-18.0) g/dL Hct 36.6 L (42.0-52.0) % Plt Count 266 (150-375) k/mm3 BMP 10/29/24 09:58 Sodium 136 L Potassium 4.1 Chloride 101 Carbon Dioxide 31 H BUN 17 Creatinine 0.80 Glucose 232 H Calcium 9.1 Liver Function 10/29/24 Range/Units 09:58 Total Bilirubin 0.4 (0.2-1.3) mg/dL AST 26 (17-59) U/L ALT 21 (6-50) U/L Alkaline Phosphatase 67 (38-126) U/L Albumin 4.0 (3.5-5.1) g/dL Urine 10/29/24 Range/Units 08:36 Urine Color Red H (Yellow) Urine Appearance Turbid H (Clear) Urine pH 6.5 (5.0-9.0) Ur Specific [place] 1.022 (1.001-1.035) Urine Protein TNP Urine Glucose (UA) TNP Assessment and Plan Assessment and plan (1) Hematuria: Qualifiers: Hematuria type: gross Qualified Code(s): R31.0 - Gross hematuria Code(s): R31.9 - Hematuria, unspecified Status: Acute Assessment and Plan: - CT abdomen/pelvis: Small volume of hematoma in the bladder - urology consulted, awaiting formal recs. - three way Light placed for CBI - monitor I&Os - continue to hold Plavix - trend H&H (2) UTI (urinary tract infection): Qualifiers: Hematuria presence: with hematuria Urinary tract infection type: acute cystitis Qualified Code(s): N30.01 - Acute cystitis with hematuria Code(s): N39.0 - Urinary tract infection, site not specified Status: Acute Assessment and Plan: - UA: Red, turbid, greater than 100 RBC, 11-20 WBC, no epithelial cells or bacteria. - UC pending, obtained on 10/29. No urine culture from previous admission on 10/27-10/28. - previous micro reviewed, no urine cultures available for review - started on Cipro outpatient, however patient is NPO. Will proceed with ceftriaxone IVPB until no longer NPO to complete ABX course. (3) Diabetes: Qualifiers: Diabetes mellitus complication status: with hyperglycemia Diabetes mellitus termite treater insulin use: without intermediate use Diabetes mellitus type: type 2 Qualified Code(s): E11.65 - Type 2 diabetes mellitus with hyperglycemia Code(s): E11.9 - Type 2 diabetes mellitus without complications Status: Chronic Assessment and Plan: - hypoglycemia protocol - POC blood glucose ACHS - home medication: hold metformin in case of need for CT with contrast - correct regimen ordered - moderate dose TIDWM, based off BMI - A1C 8-9% in 09/2024 (4) BPH (benign prostatic hyperplasia): Qualifiers: Lower urinary tract symptom presence: unspecified whether lower urinary tract symptoms present Qualified Code(s): N40.0 - Benign prostatic hyperplasia without lower urinary tract symptoms Code(s): N40.0 - Benign prostatic hyperplasia without lower urinary tract symptoms Status: Chronic Assessment and Plan: - s/p TURP - not currently on medications (5) Hypertension: Qualifiers: Hypertension type: primary hypertension Qualified Code(s): I10 - Essential (primary) hypertension Code(s): I10 - Essential (primary) hypertension Status: Chronic Assessment and Plan: - chronic, currently 139/89 - continue home medications: amlodipine 10 mg daily, carvedilol 12.5 mg b.i.d., lisinopril 5 mg daily - monitor Plan Diet: Diabetic GI Prophylaxis: Not currently indicated DVT Prophylaxis: SCDs Lines: Peripheral Code Status: Full code Quality VTE Prophylaxis VTE prophylaxis: mechanical ordered Hospitalist MIPS Advance Care Plan I have confirmed that the patient's Advanced Care Plan is present, code status is documented, or surrogate decision maker is listed in patient medical record.: Yes Medication Reconciliation I have utilized all available resources to obtain, update and review the patients current medications (includes all prescriptions, OTC, herbals, cannabis, and nutritional supplements).: Yes
--- NOTE | 2024-10-29 13:56 | WPDURCON ---
Assessment and Plan Assessment and plan (1) Hematuria: Qualifiers: Hematuria type: gross Qualified Code(s): R31.0 - Gross hematuria Code(s): R31.9 - Hematuria, unspecified Status: Acute Assessment and Plan: s/p cystoscopy with clot evacuation with Dr. Ritchie on 10/27/24. Per op note, no source of bleeding was identified. Urinalysis today shows grossly bloody urine, does not appear to be infected. Urine culture is pending. 10/27/24 urine culture was negative. 10/29/24 CT AP W CON shows small hematoma in the bladder, moderately enlarged prostate. No hydronephrosis. No leukocytosis, WBC 8.7. Hgb 12.2, stable. Renal function stable, Cr 0.8. Home Plavix held by primary team. Plan Acute gross hematuria with small bladder hematoma - Three-way catheter placed ED with continuous bladder irrigation. Passed small clot in ED now with clear output. CBI clamped at 1420. Resume CBI if he develops hematuria. Will reevaluate need for indwelling Light in a.m. Renal function and HGB stable. - Continue to hold home Plavix - No plan for acute inpatient surgical intervention, OK for diet - Encourage plain water intake of 64 ounces daily, minimize bladder irritants Urology Consult Note HPI Date Seen: 10/29/24 Requesting Physician: Kingsley Cochran MD Primary Care Provider: Onel Estrada, Consult Narrative Reason for consult: Recurrent gross hematuria Narrative: Mr. Hadley presented to the emergency department with recurrent hematuria after being discharged yesterday following cystoscopy with clot evacuation on 10/27/24. During initial admission, approximately 400 mL of blood clot was removed with no source of bleeding identified. Bladder stones were also extracted via irrigation. This morning, he noticed blood in urine at home (fruit punch colored, no clots). He subsequently passed a small clot in the emergency department shortly after CT scan. CBI was started in the ED -- output has been crystal clear. He reports right-sided abdominal pain intermittent since cholecystectomy two weeks ago. Medical history includes BPH status post TURP, CAD, diabetes, hyperlipidemia, hypertension, myocardial infarction, peripheral vascular disease, and TIA. Home Plavix currently held. He has not been drinking much plain water follow clot evacuation. PERTINENT LABS: 10/29/24 - WBC 8.7, HGB 12.2, Cr 0.8, INR 1.2 10/29/24 - Urinalysis: Red, turbid, >100 RBC, 11-20 WBC, no epithelial cells or bacteria 10/27/24 - Urine culture negative PERTINENT IMAGIN10/29/24 CT Abdomen/Pelvis with contrast - Small volume of hematoma in bladder, moderately enlarged prostate, no hydronephrosis, 2.0 cm right adrenal adenoma, renal cysts up to 6.2 cm on left Review of Systems Review of Systems: All systems reviewed & are unremarkable except as noted in HPI and below Constitutional: Constitutional: Reports no additional constitutional complaints Eyes: Eyes: Reports no additional eye complaints ENT: Reports Normal hearing present Cardiovascular: Cardiovascular: Reports no additional cardiovascular complaints Respiratory: Respiratory: Reports no additional respiratory complaints Gastrointestinal: Gastrointestinal: Reports no additional gastrointestinal complaints Genitourinary: Genitourinary: Reports as per HPI Musculoskeletal: Musculoskeletal: Reports as per HPI Neurologic: Reports system reviewed and no additional complaints, except as documented Psychiatric: Psychiatric: Reports no additional psychiatric complaints [facility] Past Medical History Medical History (Updated 10/29/24 @ 13:17 by Joselin Dejesus APRN) BPH (benign prostatic hyperplasia) CAD (coronary artery disease) Chronic cholecystitis with calculus s/p cholecystectomy Diabetes Family history of pseudocholinesterase deficiency Hyperlipidemia Hypertension Myocardial infarct Neuropathy Peripheral vascular disease Proteinuria TIA (transient ischemic attack) multiple Surgical History Surgical History (Updated 10/29/24 @ 13:17 by Joselin Dejesus APRN) History of cholecystectomy History of coronary artery stent placement 2015 History of transurethral resection of prostate Family History Family History Son Diabetes mellitus Father Heart disease Hypertension Sibling Heart disease Hypertension Social History Social History Smoking packs per day: 0.5 Smoking cigarettes per day: 10.0 Years smoked: 40 Smoking pack-years: 20.00 Smoking status: Current some day smoker Alcohol intake: current Substance use: never Substance use type: does not use Do You Feel Safe in your Home?: Yes Lack of Transportation: No Lack of Food: Never True Current Housing: I Have Housing Concerned About Future Housing: No Difficulty Paying Gas/Electric Bills: No Difficulty Paying for Meds: No Currently Unemployed: No Education: Trade/Vocational Certificate Difficulty w/ Childcare or Family Care: No Living arrangements: with family Additional living arrangements comments: Gender identity (if verbalized by the patient): Male Sexual Orientation (if Verbalized by the Patient): Straight or Heterosexual Spiritual care concerns: No Meds Home Medications and Allergies Home Medications Medication Instructions Recorded Confirmed Type amlodipine 10 mg tablet 10 mg PO QAM 05/22/20 10/29/24 History clopidogrel 75 mg tablet 75 mg PO DAILY 05/22/20 10/29/24 History lisinopril 5 mg tablet 5 mg PO QAM 05/22/20 10/29/24 History carvedilol 12.5 mg tablet 12.5 mg PO BID 09/18/22 10/29/24 History rosuvastatin 40 mg tablet 40 mg PO DAILY 07/13/23 10/29/24 History sertraline 25 mg tablet 25 mg PO QAM 10/09/24 10/29/24 History metformin 1,000 mg tablet 1,000 mg PO BID 10/27/24 10/29/24 History ciprofloxacin HCl 500 mg tablet 500 mg PO Q12H #10 tabs 10/28/24 10/29/24 Rx Allergies Allergy/AdvReac Type Severity Reaction Status Date / Time meperidine Allergy Severe AVOIDS-DAUGHTER Verified 10/29/24 08:31 HAD GENETIC ADVERSE REACTION morphine Allergy Severe Unknown Verified 10/29/24 08:31 ibuprofen AdvReac Severe MIGRAINES, Verified 10/29/24 08:31 POS TIA ANESTHETIC MEDS Allergy AVOIDS Uncoded 10/29/24 08:31 AVOIDED-PSEUDOCHOLI ANESTHESIA R/T PSEUDOCHOLINESTERASE DEFICIENCY Vital Signs Vital Signs - 24 hr 10/29/24 09:08 10/29/24 13:43 10/29/24 08:48 Temperature 97.7 F Pulse Rate 81 78 Respiratory Rate 18 18 Blood Pressure 139/89 150/83 H Pulse Oximetry 99 100 100 10/29/24 08:49 10/29/24 09:00 10/29/24 09:01 Temperature Pulse Rate Respiratory Rate Blood Pressure 159/83 H 139/89 Pulse Oximetry 98 97 98 10/29/24 09:15 10/29/24 09:30 10/29/24 09:31 Temperature Pulse Rate Respiratory Rate Blood Pressure 158/85 H Pulse Oximetry 98 95 97 10/29/24 09:48 10/29/24 10:00 10/29/24 10:01 Temperature Pulse Rate Respiratory Rate Blood Pressure 109/86 Pulse Oximetry 97 100 98 10/29/24 10:32 10/29/24 11:09 10/29/24 11:15 Temperature Pulse Rate 77 Respiratory Rate 18 Blood Pressure Pulse Oximetry 98 100 99 Exam Const: General: comfortable and no acute distress HENMT: Face/Nose/Sinus: Normal nares present Eyes: General: appearance normal, both eyes and all related structures Sclera: sclerae normal Neck: Neck: supple Resp: Effort & Inspection: normal respiratory effort : Other: 3-way indwelling Light catheter intact with CBI; crystal clear output Urinary Catheter: Urinary Catheter: patent and draining and urine clear Skin: General skin exam: no rashes or lesions noted Neuro: Speech: normal speech Motor exam (neuro): Normal motor muscle tone present throughout Extrem: General: normal to inspection Psych: Speech and movement: Normal speech and movement present Affect: normal affect Results Labs 10/29/24 09:58 10/29/24 09:58 Labs: Short CBC 10/29/24 Range/Units 09:58 WBC 8.7 (4.5-10.0) K/mm3 Hgb 12.2 L (14.0-18.0) g/dL Hct 36.6 L (42.0-52.0) % Plt Count 266 (150-375) k/mm3 BMP 10/29/24 09:58 Sodium 136 L Potassium 4.1 Chloride 101 Carbon Dioxide 31 H BUN 17 Creatinine 0.80 Glucose 232 H Calcium 9.1 Liver Function 10/29/24 Range/Units 09:58 Total Bilirubin 0.4 (0.2-1.3) mg/dL AST 26 (17-59) U/L ALT 21 (6-50) U/L Alkaline Phosphatase 67 (38-126) U/L Albumin 4.0 (3.5-5.1) g/dL Urine 10/29/24 Range/Units 08:36 Urine Color Red H (Yellow) Urine Appearance Turbid H (Clear) Urine pH 6.5 (5.0-9.0) Ur Specific [place] 1.022 (1.001-1.035) Urine Protein TNP Urine Glucose (UA) TNP
[2024-10-29] MEDS: SODIUM CHLORIDE 0.9% IV 1,000 ML 125 ML IV CONT ×2 (14:28→22:28)
--- NOTE | 2024-10-29 14:44 | ADMGEN ---
This patient, Karri Hadley, was admitted to [facility] Surg Room 330-01. Patient/family oriented to hospital policies and general routines including ID bracelet, bed and alarms, visiting hours, pain management, procedures, bathroom and other care routines, personal items, smoking policy, room service/diet, and visiting hours. Information on how to activate the Rapid Response Team has been discussed. Patient/Family are encouraged to report perceived risks to care and to ask questions if they do not understand what they are told or what they should do. Report from [facility]
[2024-10-29] MEDS: carvediloL 12.5 MG TABLET PO (16:39)
[2024-10-29 17:18] LABS: Glucose Point of Care 148 mg/dl (65-105)
[2024-10-29 20:47] LABS: Glucose Point of Care 185 mg/dl (65-105)
[2024-10-29] MEDS: NAPROXEN 375 MG TABLET PO (23:52)
[2024-10-30 01:00] VITALS: O2SAT 98
[2024-10-30 05:51] VITALS: BP 134/56; PULSE 70; RESP 18; TEMP 36.2; O2SAT 99
[2024-10-30] MEDS: SODIUM CHLORIDE 0.9% IV 1,000 ML 125 ML IV CONT (06:49)
--- NOTE | 2024-10-30 06:54 | WPDUROPN2 ---
Progress Note: A&P Assessment and Plan (1) Hematuria: Qualifiers: Hematuria type: gross Qualified Code(s): R31.0 - Gross hematuria Code(s): R31.9 - Hematuria, unspecified Status: Acute (2) UTI (urinary tract infection): Qualifiers: Urinary tract infection type: acute cystitis Hematuria presence: with hematuria Qualified Code(s): N30.01 - Acute cystitis with hematuria Code(s): N39.0 - Urinary tract infection, site not specified Status: Acute (3) Gross hematuria: Code(s): R31.0 - Gross hematuria Status: Acute Assessment and Plan: Hematuria due to BPH. CT yesterday showed negligible clot in his bladder. Urine is clear this morning on a very slow irrigation. Will start finasteride to reduce risk of recurrent hematuria in the long-term. If this continues to be problematic could consider, and the short-term, PAE (prostate artery embolization). I will stop CBI this morning and try to get the catheter out later today if urine remains clear. Subjective Subjective Date/Time Seen: 10/30/24 06:54 Interval history: Comfortable Urine clear on slow CBI Review of Systems Cardiovascular: Cardiovascular: Denies chest pain, Denies lightheadedness, Denies palpitations and Denies dyspnea Respiratory: Respiratory: Denies dyspnea Gastrointestinal: Gastrointestinal: Denies diarrhea, Denies nausea and Denies vomiting Genitourinary: Genitourinary: Denies hematuria and Denies dysuria Endocrine: Endocrine: Denies palpitations Exam Const: General: no acute distress Resp: Effort & Inspection: normal respiratory effort GI: Inspection: non-distended GI Palp: No abdominal tenderness and No Guarding due to palpation present (GI) Auscultation: normal bowel sounds Urinary Catheter: Urinary Catheter: patent and draining and urine clear Objective Data Vital Signs Vital Signs: Vital Signs - 24 hr 10/29/24 09:08 10/29/24 13:43 10/29/24 08:48 Temperature 97.7 F Pulse Rate 81 78 Respiratory Rate 18 18 Blood Pressure 139/89 150/83 H Pulse Oximetry 99 100 100 Oxygen Delivery Fraction of Inspired Oxygen 10/29/24 08:49 10/29/24 09:00 10/29/24 09:01 Temperature Pulse Rate Respiratory Rate Blood Pressure 159/83 H 139/89 Pulse Oximetry 98 97 98 Oxygen Delivery Fraction of Inspired Oxygen 10/29/24 09:15 10/29/24 09:30 10/29/24 09:31 Temperature Pulse Rate Respiratory Rate Blood Pressure 158/85 H Pulse Oximetry 98 95 97 Oxygen Delivery Fraction of Inspired Oxygen 10/29/24 09:48 10/29/24 10:00 10/29/24 10:01 Temperature Pulse Rate Respiratory Rate Blood Pressure 109/86 Pulse Oximetry 97 100 98 Oxygen Delivery Fraction of Inspired Oxygen 10/29/24 10:32 10/29/24 11:09 10/29/24 11:15 Temperature Pulse Rate 77 Respiratory Rate 18 Blood Pressure Pulse Oximetry 98 100 99 Oxygen Delivery Fraction of Inspired Oxygen 10/29/24 15:23 10/29/24 16:39 10/29/24 21:27 Temperature 98.7 F Pulse Rate 77 67 Respiratory Rate 16 Blood Pressure 132/73 Pulse Oximetry 100 98 Oxygen Delivery Room Air Fraction of Inspired Oxygen 10/29/24 20:00 10/30/24 01:00 10/30/24 05:51 Temperature 97.1 F L Pulse Rate 67 70 Respiratory Rate 16 18 Blood Pressure 134/56 L Pulse Oximetry 98 98 99 Oxygen Delivery Room Air Room Air Fraction of Inspired Oxygen 21 Intake/Output Intake/Output: Intake & Output 10/27/24 10/28/24 10/29/24 10/30/24 23:59 23:59 23:59 23:59 Intake Total 1290 1350 Output Total 1250 700 Balance 40 650 Meds/Results Medications: Active Medications Generic Name Dose Route Start Last Admin Trade Name Freq PRN Reason Stop Dose Admin Acetaminophen 650 mg 10/29/24 13:17 Acetaminophen 325 Mg Tablet PO Q6H PRN Mild Pain (1-3) or Fever Amlodipine Besylate 10 mg 10/30/24 09:00 Amlodipine Besylate 10 Mg Tablet PO QAM JOSE Carvedilol 12.5 mg 10/29/24 17:00 10/29/24 16:39 Carvedilol 12.5 Mg Tablet PO 12.5 mg BID JOSE Administration Dextrose 12.5 gm 10/29/24 13:13 Dextrose 50% 25 Gm/50 Ml Syringe IV PUSH PRN PRN Hypoglycemia Protocol Glucagon 1 mg 10/29/24 13:13 Glucagon For Inj 1 Mg Vial IM PRN PRN Hypoglycemia Protocol Glucose 15 gm 10/29/24 13:13 Glucose Oral Gel 15 Gm Of Glucse In 37.5 Gm Tube PO PRN PRN Hypoglycemia Protocol Sodium Chloride 1,000 mls @ 125 mls/hr 10/29/24 12:15 10/30/24 06:49 Normal Saline Iv IV CONT 125 mls/hr .Q8H JOSE Administration Ceftriaxone Sodium 1 gm in 50 mls @ 100 mls/hr 10/29/24 13:30 10/29/24 15:00 Rocephin 1 Gm/Ns 50 Ml IVPB Infused QAM [facility] Infusion Dextrose 1,000 mls @ 100 mls/hr 10/29/24 13:13 Dextrose 5% 1,000 Ml IVPB PRN PRN Hypoglycemia Protocol Insulin Aspart 3 - 6 units 10/29/24 17:00 10/29/24 17:19 Insulin Aspart (*Bkc) 100 Units/Ml SUB-Q Not Given TIDWM [facility] Protocol Lisinopril 5 mg 10/30/24 09:00 Lisinopril 5 Mg Tablet PO QAM [facility] Naproxen 375 mg 10/29/24 15:00 10/29/24 23:52 Naproxen 375 Mg Tablet PO 375 mg BIDWM PRN Administration Pain Rated 4-6 Rosuvastatin Calcium 40 mg 10/30/24 09:00 Rosuvastatin 20 Mg Tablet PO DAILY [facility] Sertraline HCl 25 mg 10/30/24 09:00 Sertraline Hcl 25 Mg Tablet PO QAM [facility] Radiology Results: ITS Impressions Abdomen/Pelvis CT 10/29/24 10:58 IMPRESSION: 1. Small volume of hematoma in the bladder. Labs Labs: Laboratory Results - last 24 hr 10/29/24 10/29/24 10/29/24 08:36 09:58 17:09 WBC 8.7 RBC 4.00 L Hgb 12.2 L Hct 36.6 L MCV 91.5 MCH 30.5 MCHC 33.3 RDW 12.2 Plt Count 266 MPV 9.7 Immature Gran % (Auto) 0.6 H Neut % (Auto) 71.0 Lymph % (Auto) 15.9 L Barry % (Auto) 6.9 Eos % (Auto) 5.3 H Baso % (Auto) 0.3 Lymph # (Auto) 1.39 Barry # (Auto) 0.6 Eos # (Auto) 0.5 H Baso # (Auto) 0.0 Abs Immat Gran (auto) 0.05 H Absolute Neuts (auto) 6.2 Absolute Nucleated RBC 0.000 Nucleated RBC % 0.0 PT 15.3 H INR 1.2 APTT 38.1 H Sodium 136 L Potassium 4.1 Chloride 101 Carbon Dioxide 31 H Anion Gap 4 BUN 17 Creatinine 0.80 Estim Creat Clear Calc 69 Estimated GFR > 60 Glucose 232 H POC Capillary Glucose 148 H Calcium 9.1 Total Bilirubin 0.4 AST 26 ALT 21 Alkaline Phosphatase 67 Total Protein 7.0 Albumin 4.0 Urine Color Red H Urine Appearance Turbid H Urine pH 6.5 Ur Specific [place] 1.022 Urine Protein TNP Urine Glucose (UA) TNP Urine Ketones TNP Ur Blood (Man) TNP Urine Nitrate TNP Urine Bilirubin TNP Urine Urobilinogen TNP Add Ur Microanalysis Reviewed Leukocyte Esterase Rfl TNP Urine RBC >100 H Urine WBC 11-20 H Ur Squamous Epith Cells None seen Urine Bacteria None seen Urine Casts 0-2 10/29/24 20:25 WBC RBC Hgb Hct MCV MCH MCHC RDW Plt Count MPV Immature Gran % (Auto) Neut % (Auto) Lymph % (Auto) Barry % (Auto) Eos % (Auto) Baso % (Auto) Lymph # (Auto) Barry # (Auto) Eos # (Auto) Baso # (Auto) Abs Immat Gran (auto) Absolute Neuts (auto) Absolute Nucleated RBC Nucleated RBC % PT INR APTT Sodium Potassium Chloride Carbon Dioxide Anion Gap BUN Creatinine Estim Creat Clear Calc Estimated GFR Glucose POC Capillary Glucose 185 H Calcium Total Bilirubin AST ALT Alkaline Phosphatase Total Protein Albumin Urine Color Urine Appearance Urine pH Ur Specific [place] Urine Protein Urine Glucose (UA) Urine Ketones Ur Blood (Man) Urine Nitrate Urine Bilirubin Urine Urobilinogen Add Ur Microanalysis Leukocyte Esterase Rfl Urine RBC Urine WBC Ur Squamous Epith Cells Urine Bacteria Urine Casts
--- NOTE | 2024-10-30 08:23 | P.PNIM_ITS ---
Progress Note: A&P Assessment and Plan (1) Hematuria: Qualifiers: Hematuria type: gross Qualified Code(s): R31.0 - Gross hematuria Code(s): R31.9 - Hematuria, unspecified Status: Acute Assessment and Plan: - 10/29 CT abdomen/pelvis: Small volume of hematoma in the bladder - urology consulted - three way Light placed for CBI - monitor I&Os - continue to hold Plavix - trend H&H (2) UTI (urinary tract infection): Qualifiers: Hematuria presence: with hematuria Urinary tract infection type: acute cystitis Qualified Code(s): N30.01 - Acute cystitis with hematuria Code(s): N39.0 - Urinary tract infection, site not specified Status: Acute Assessment and Plan: - UA: Red, turbid, greater than 100 RBC, 11-20 WBC, no epithelial cells or bacteria. - UC pending, obtained on 10/29. No urine culture from previous admission on 10/27-10/28. - previous micro reviewed, no urine cultures available for review - started on Cipro outpatient, however patient is NPO. Will proceed with ceftriaxone IVPB until no longer NPO to complete ABX course. (3) Diabetes: Qualifiers: Diabetes mellitus complication status: with hyperglycemia Diabetes mellitus mcfp insulin use: without manuscripts archivist use Diabetes mellitus type: type 2 Qualified Code(s): E11.65 - Type 2 diabetes mellitus with hyperglycemia Code(s): E11.9 - Type 2 diabetes mellitus without complications Status: Chronic Assessment and Plan: - hypoglycemia protocol - POC blood glucose ACHS - home medication: hold metformin in case of need for CT with contrast - correct regimen ordered - moderate dose TIDWM, based off BMI - A1C 8-9% in 09/2024 (4) BPH (benign prostatic hyperplasia): Qualifiers: Lower urinary tract symptom presence: unspecified whether lower urinary tract symptoms present Qualified Code(s): N40.0 - Benign prostatic hyperplasia without lower urinary tract symptoms Code(s): N40.0 - Benign prostatic hyperplasia without lower urinary tract symptoms Status: Chronic Assessment and Plan: - s/p TURP - not currently on medications (5) Hypertension: Qualifiers: Hypertension type: primary hypertension Qualified Code(s): I10 - Essential (primary) hypertension Code(s): I10 - Essential (primary) hypertension Status: Chronic Assessment and Plan: - chronic, currently 139/89 - continue home medications: amlodipine 10 mg daily, carvedilol 12.5 mg b.i.d., lisinopril 5 mg daily - monitor Plan Diet: Diabetic GI Prophylaxis: Not currently indicated DVT Prophylaxis: SCDs Lines: Peripheral Code Status: Full code Subjective Date/time seen: 10/30/24 08:23 Interval history: 69 y/o M presents here with hematuria with PMH of BPH, CAD, diabetes, hyperlipidemia, hypertension, myocardial infarction, peripheral vascular disease, and TIA. Comfortable Urine clear on slow CBI Review of Systems Review of Systems: All systems reviewed & are unremarkable except as noted in HPI and below Exam Narrative: laproscopic incisions are cdi, glued. mild abdominal distention. moderate tenderness to the right mid lateral quadrant. normoactive BS in all quads. urine clear. Const: General: comfortable and no acute distress Other: , male, nontoxic appearance HENMT: Face/Nose/Sinus: Normal nares present Mouth: Yes moist mucous membranes Eyes: General: appearance normal, both eyes and all related structures Sclera: sclerae normal Pupils: Equal, round and reactive pupils present EOM: EOMs intact bilaterally Resp: Effort & Inspection: normal respiratory effort Auscultation: clear to auscultation bilaterally Cardio: Rate: regular rate Rhythm: regular rhythm GI: Other: Abdomen mildly distended, mildly firm. Laparoscopic incisions are CDI, glued. No erythema or drainage. Moderate tenderness to the right mid/lateral quadrant. Normoactive bowel sounds in all quadrants. Urinary Catheter: Urinary Catheter: patent and draining and urine clear Skin: General skin exam: normal color and no rashes or lesions noted Wounds: no wounds Neuro: Cranial nerves: Yes Equal, round and reactive pupils present Speech: normal speech Motor exam (neuro): 5/5 motor strength present throughout Sensory Exam: normal sensation Other: A&O x4 Extrem: General: normal to inspection Psych: Mental Status: mental status grossly normal Affect: normal affect Other: Good insight and judgment, pleasant Objective Data Vital Signs Vital Signs: Vital Signs - 24 hr 10/29/24 09:08 10/29/24 13:43 10/29/24 08:48 Temperature 97.7 F Pulse Rate 81 78 Respiratory Rate 18 18 Blood Pressure 139/89 150/83 H Pulse Oximetry 99 100 100 Oxygen Delivery Fraction of Inspired Oxygen 10/29/24 08:49 10/29/24 09:00 10/29/24 09:01 Temperature Pulse Rate Respiratory Rate Blood Pressure 159/83 H 139/89 Pulse Oximetry 98 97 98 Oxygen Delivery Fraction of Inspired Oxygen 10/29/24 09:15 10/29/24 09:30 10/29/24 09:31 Temperature Pulse Rate Respiratory Rate Blood Pressure 158/85 H Pulse Oximetry 98 95 97 Oxygen Delivery Fraction of Inspired Oxygen 10/29/24 09:48 10/29/24 10:00 10/29/24 10:01 Temperature Pulse Rate Respiratory Rate Blood Pressure 109/86 Pulse Oximetry 97 100 98 Oxygen Delivery Fraction of Inspired Oxygen 10/29/24 10:32 10/29/24 11:09 10/29/24 11:15 Temperature Pulse Rate 77 Respiratory Rate 18 Blood Pressure Pulse Oximetry 98 100 99 Oxygen Delivery Fraction of Inspired Oxygen 10/29/24 15:23 10/29/24 16:39 10/29/24 21:27 Temperature 98.7 F Pulse Rate 77 67 Respiratory Rate 16 Blood Pressure 132/73 Pulse Oximetry 100 98 Oxygen Delivery Room Air Fraction of Inspired Oxygen 10/29/24 20:00 10/30/24 01:00 10/30/24 05:51 Temperature 97.1 F L Pulse Rate 67 70 Respiratory Rate 16 18 Blood Pressure 134/56 L Pulse Oximetry 98 98 99 Oxygen Delivery Room Air Room Air Fraction of Inspired Oxygen 21 Intake/Output Intake/Output: Intake & Output 10/27/24 10/28/24 10/29/24 10/30/24 23:59 23:59 23:59 23:59 Intake Total 1290 1350 Output Total 1250 700 Balance 40 650 Meds/Results Medications: Active Medications Generic Name Dose Route Start Last Admin Trade Name Freq PRN Reason Stop Dose Admin Acetaminophen 650 mg 10/29/24 13:17 Acetaminophen 325 Mg Tablet PO Q6H PRN Mild Pain (1-3) or Fever Amlodipine Besylate 10 mg 10/30/24 09:00 Amlodipine Besylate 10 Mg Tablet PO QAM JOSE Carvedilol 12.5 mg 10/29/24 17:00 10/29/24 16:39 Carvedilol 12.5 Mg Tablet PO 12.5 mg BID JOSE Administration Dextrose 12.5 gm 10/29/24 13:13 Dextrose 50% 25 Gm/50 Ml Syringe IV PUSH PRN PRN Hypoglycemia Protocol Glucagon 1 mg 10/29/24 13:13 Glucagon For Inj 1 Mg Vial IM PRN PRN Hypoglycemia Protocol Glucose 15 gm 10/29/24 13:13 Glucose Oral Gel 15 Gm Of Glucse In 37.5 Gm Tube PO PRN PRN Hypoglycemia Protocol Sodium Chloride 1,000 mls @ 125 mls/hr 10/29/24 12:15 10/30/24 06:49 Normal Saline Iv IV CONT 125 mls/hr .Q8H JOSE Administration Ceftriaxone Sodium 1 gm in 50 mls @ 100 mls/hr 10/29/24 13:30 10/29/24 15:00 Rocephin 1 Gm/Ns 50 Ml IVPB Infused QAM JOSE Infusion Dextrose 1,000 mls @ 100 mls/hr 10/29/24 13:13 Dextrose 5% 1,000 Ml IVPB PRN PRN Hypoglycemia Protocol Insulin Aspart 3 - 6 units 10/29/24 17:00 10/29/24 17:19 Insulin Aspart (*Bkc) 100 Units/Ml SUB-Q Not Given TIDWM [facility] Protocol Lisinopril 5 mg 10/30/24 09:00 Lisinopril 5 Mg Tablet PO QAM [facility] Naproxen 375 mg 10/29/24 15:00 10/29/24 23:52 Naproxen 375 Mg Tablet PO 375 mg BIDWM PRN Administration Pain Rated 4-6 Rosuvastatin Calcium 40 mg 10/30/24 09:00 Rosuvastatin 20 Mg Tablet PO DAILY [facility] Sertraline HCl 25 mg 10/30/24 09:00 Sertraline Hcl 25 Mg Tablet PO QAM [facility] Radiology Results: ITS Impressions Abdomen/Pelvis CT 10/29/24 10:58 IMPRESSION: 1. Small volume of hematoma in the bladder. Labs Labs: Laboratory Results - last 24 hr 10/29/24 10/29/24 10/29/24 08:36 09:58 17:09 WBC 8.7 RBC 4.00 L Hgb 12.2 L Hct 36.6 L MCV 91.5 MCH 30.5 MCHC 33.3 RDW 12.2 Plt Count 266 MPV 9.7 Immature Gran % (Auto) 0.6 H Neut % (Auto) 71.0 Lymph % (Auto) 15.9 L [place] % (Auto) 6.9 Eos % (Auto) 5.3 H Baso % (Auto) 0.3 Lymph # (Auto) 1.39 [place] # (Auto) 0.6 Eos # (Auto) 0.5 H Baso # (Auto) 0.0 Abs Immat Gran (auto) 0.05 H Absolute Neuts (auto) 6.2 Absolute Nucleated RBC 0.000 Nucleated RBC % 0.0 PT 15.3 H INR 1.2 APTT 38.1 H Sodium 136 L Potassium 4.1 Chloride 101 Carbon Dioxide 31 H Anion Gap 4 BUN 17 Creatinine 0.80 Estim Creat Clear Calc 69 Estimated GFR > 60 Glucose 232 H POC Capillary Glucose 148 H Calcium 9.1 Total Bilirubin 0.4 AST 26 ALT 21 Alkaline Phosphatase 67 Total Protein 7.0 Albumin 4.0 Urine Color Red H Urine Appearance Turbid H Urine pH 6.5 Ur Specific [place] 1.022 Urine Protein TNP Urine Glucose (UA) TNP Urine Ketones TNP Ur Blood (Man) TNP Urine Nitrate TNP Urine Bilirubin TNP Urine Urobilinogen TNP Add Ur Microanalysis Reviewed Leukocyte Esterase Rfl TNP Urine RBC >100 H Urine WBC 11-20 H Ur Squamous Epith Cells None seen Urine Bacteria None seen Urine Casts 0-2 10/29/24 20:25 WBC RBC Hgb Hct MCV MCH MCHC RDW Plt Count MPV Immature Gran % (Auto) Neut % (Auto) Lymph % (Auto) [place] % (Auto) Eos % (Auto) Baso % (Auto) Lymph # (Auto) [place] # (Auto) Eos # (Auto) Baso # (Auto) Abs Immat Gran (auto) Absolute Neuts (auto) Absolute Nucleated RBC Nucleated RBC % PT INR APTT Sodium Potassium Chloride Carbon Dioxide Anion Gap BUN Creatinine Estim Creat Clear Calc Estimated GFR Glucose POC Capillary Glucose 185 H Calcium Total Bilirubin AST ALT Alkaline Phosphatase Total Protein Albumin Urine Color Urine Appearance Urine pH Ur Specific [place] Urine Protein Urine Glucose (UA) Urine Ketones Ur Blood (Man) Urine Nitrate Urine Bilirubin Urine Urobilinogen Add Ur Microanalysis Leukocyte Esterase Rfl Urine RBC Urine WBC Ur Squamous Epith Cells Urine Bacteria Urine Casts Quality VTE Prophylaxis VTE prophylaxis: mechanical ordered
[2024-10-30 08:28] LABS: Glucose Point of Care 158 mg/dl (65-105)
[2024-10-30 09:19] VITALS: PULSE 76
[2024-10-30] MEDS: carvediloL 12.5 MG TABLET PO (09:19)
[2024-10-30] MEDS: SERTRALINE HCL 25 MG TABLET PO (09:20)
[2024-10-30] MEDS: ROSUVASTATIN 20 MG TABLET 40 MG PO (09:20)
[2024-10-30] MEDS: amLODIPine BESYLATE 10 MG TABLET PO (09:20)
[2024-10-30] MEDS: lisinopriL 5 MG TABLET PO (09:21)
[2024-10-30 12:30] LABS: Glucose Point of Care 221 mg/dl (65-105)
[2024-10-30] MEDS: INSULIN ASPART (*BKC) 100 UNITS/ML SUB-Q (12:33)
[2024-10-30 14:00] VITALS: BP 123/72; PULSE 59; RESP 20; TEMP 36.4; O2SAT 98
--- NOTE | 2024-10-30 14:31 | PM.DS ---
DS: Admitting Diagnosis Discharge Date 10/30/2024 Admitting Diagnosis Hematuria DS: Discharge Diagnosis Discharge Diagnosis (1) Hematuria: Qualifiers: Hematuria type: gross Qualified Code(s): R31.0 - Gross hematuria Code(s): R31.9 - Hematuria, unspecified Status: Acute Assessment and Plan: - 10/29 CT abdomen/pelvis: Small volume of hematoma in the bladder - urology consulted - three way Light placed for CBI - monitor I&Os - continue to hold Plavix - trend H&H stable (2) UTI (urinary tract infection): Qualifiers: Hematuria presence: with hematuria Urinary tract infection type: acute cystitis Qualified Code(s): N30.01 - Acute cystitis with hematuria Code(s): N39.0 - Urinary tract infection, site not specified Status: Acute Assessment and Plan: - UA: Red, turbid, greater than 100 RBC, 11-20 WBC, no epithelial cells or bacteria. - UC pending, obtained on 10/29. No urine culture from previous admission on 10/27-10/28. - previous micro reviewed, no urine cultures available for review - started on Cipro outpatient, however patient is NPO. Will proceed with ceftriaxone IVPB until no longer NPO to complete ABX course. (3) Diabetes: Qualifiers: Diabetes mellitus complication status: with hyperglycemia Diabetes mellitus meterman insulin use: without longterm use Diabetes mellitus type: type 2 Qualified Code(s): E11.65 - Type 2 diabetes mellitus with hyperglycemia Code(s): E11.9 - Type 2 diabetes mellitus without complications Status: Chronic Assessment and Plan: - hypoglycemia protocol - POC blood glucose ACHS - home medication: hold metformin in case of need for CT with contrast - correct regimen ordered - moderate dose TIDWM, based off BMI - A1C 8-9% in 09/2024 (4) BPH (benign prostatic hyperplasia): Qualifiers: Lower urinary tract symptom presence: unspecified whether lower urinary tract symptoms present Qualified Code(s): N40.0 - Benign prostatic hyperplasia without lower urinary tract symptoms Code(s): N40.0 - Benign prostatic hyperplasia without lower urinary tract symptoms Status: Chronic Assessment and Plan: - s/p TURP - not currently on medications (5) Hypertension: Qualifiers: Hypertension type: primary hypertension Qualified Code(s): I10 - Essential (primary) hypertension Code(s): I10 - Essential (primary) hypertension Status: Chronic Assessment and Plan: - chronic, currently 139/89 - continue home medications: amlodipine 10 mg daily, carvedilol 12.5 mg b.i.d., lisinopril 5 mg daily - monitor Plan Diet: Diabetic GI Prophylaxis: Not currently indicated DVT Prophylaxis: SCDs Lines: Peripheral Code Status: Full code DS: Summary Hospital Course Hospital Course: 69 y/o M presents here with hematuria with PMH of BPH, CAD, diabetes, hyperlipidemia, hypertension, myocardial infarction, peripheral vascular disease, and TIA. The patient presents here from home for further evaluation of hematuria. He reports acute onset of hematuria 30 minutes prior to arrival to the emergency department, estimates this was around 8:30 a.m. The patient was initially admitted to [facility] on 10/27 for same complaint of hematuria and was discharged on 10/28. During his hospital course his workup was concerning for a UTI for which he was discharged on Cipro. No urine culture was obtained at that time. He also underwent a cystoscopy which showed a large amount of clot within the bladder which was evacuated, no source of bleeding identified, bladder stones extracted as well via irrigation. Postprocedure the patient had his Light discontinued and clear urine was observed. Patient's Plavix was held and patient was instructed to follow up with Urology outpatient. However he is returning today due to the recurrent hematuria that is now company by right flank pain that radiates into his abdomen. He describes this pain as achy, sore, radiation into the RUQ, constant, and no aggravating or alleviating factors. He reports he has still been holding his Plavix and has been compliant with his antibiotic course. Initial VS at presentation: 97.7? F, HR 81, RR 18, 139/89, and 99% on RA. ED workup showed: WBC 8.7, hemoglobin 12.2 (previously 4.2 on 10/28/2024), INR 1.2, sodium 136, creatinine 0.8 and GFR >60, glucose 232, and UA showed a red turbid appearance, greater than 100 RBC, 11-20 WBC, no epithelial cells, no bacteria. Three-way catheter placed ED with continuous bladder irrigation. Passed small clot in ED now with clear output. S/p cystoscopy with clot evacuation with Dr. Ritchie on 10/27/24. Per op note, no source of bleeding was identified. Urinalysis today shows grossly bloody urine, does not appear to be infected. Due to gross hematuria UA not unable to hold if patient is UTI, patient complains of severe burning on urination. Will send the patient home on antibiotics 10/29/24 CT Abdomen/Pelvis with contrast - Small volume of hematoma in bladder, moderately enlarged prostate, no hydronephrosis, 2.0 cm right adrenal adenoma, renal cysts up to 6.2 cm on left. Will start finasteride to reduce risk of recurrent hematuria in the long-term. If this continues to be problematic could consider, and the short-term, PAE (prostate artery embolization). CBI. This morning by Urology patient's urine was yellow and Light was able to be removed patient will follow-up in 1 2 weeks outpatient with Urology. Patient will be discharged on Cipro and can restart his Plavix on Sunday Status at Discharge Functional status at discharge: independent ambulation Time Spent with Patient Time attestation: Total time spent providing and/or coordinating discharge services: Time spent: Greater than 30 minutes Exam Narrative: General: well appearing, appears stated age. HEENT: normocephalic, atraumatic. Mucous membranes moist. EOMI, PERRLA, bilateral sclera anicteric, no conjunctival injection. Neck supple without JVD, lymphadenopathy, or bruit. Respiratory: clear to ascultation bilaterally. No rales/rhonic/wheezes. Cardiovascular: Regular rate and rhythm, normal S1-S2 upon ascultation. No murmurs, rubs, or clicks. PMI is nondisplaced, capillary refill less than 3 second. Abdomen: Soft, round, no pulsatile masses, nondistended and nontender. No rebound, no guarding. No CVA tenderness, no hepatosplenomegaly. Bowel sounds present to all four quadrants. No high pitch or tinkling sounds, resonant to percussion. Extremities: No cyanosis, clubbing, or edema present. Pulses are palpable 2/2. Active ROM to all four extremities. Neuro: Alert and orientated x 4. PERRLA. Cranial nerves 2-12 intact without focal deficit. Skin: Warm, dry, and intact, without rash, erythema, or lesion. Psych: pleasant, cooperative, normal speech, normal affect, no hallucinations, no dysarthia laproscopic incisions are cdi, glued. mild abdominal distention. moderate tenderness to the right mid lateral quadrant. normoactive BS in all quads. urine clear. Const: General: comfortable and no acute distress Other: , male, nontoxic appearance HENMT: Face/Nose/Sinus: Normal nares present Mouth: Yes moist mucous membranes Eyes: General: appearance normal, both eyes and all related structures Sclera: sclerae normal Pupils: Equal, round and reactive pupils present EOM: EOMs intact bilaterally Resp: Effort & Inspection: normal respiratory effort Auscultation: clear to auscultation bilaterally Cardio: Rate: regular rate Rhythm: regular rhythm GI: Other: Abdomen mildly distended, mildly firm. Laparoscopic incisions are CDI, glued. No erythema or drainage. Moderate tenderness to the right mid/lateral quadrant. Normoactive bowel sounds in all quadrants. Urinary Catheter: Urinary Catheter: patent and draining and urine clear Skin: General skin exam: normal color and no rashes or lesions noted Wounds: no wounds Neuro: Cranial nerves: Yes Equal, round and reactive pupils present Speech: normal speech Motor exam (neuro): 5/5 motor strength present throughout Sensory Exam: normal sensation Other: A&O x4 Extrem: General: normal to inspection Psych: Mental Status: mental status grossly normal Affect: normal affect Other: Good insight and judgment, pleasant DS: Data Data Completed and Pending Labs on day of discharge: Labs from last 24 hours 10/30/24 10/30/24 10/29/24 11:41 08:06 20:25 POC Capillary Glucose 221 H 158 H 185 H 10/29/24 17:09 POC Capillary Glucose 148 H Discharge Plan Discharge Consulting providers: Jose Antonio Rao Discharging Clinician: Maddie Rojas Anticipated Discharge Date/Time: 10/30/24 14:33 Patient Disposition: Home, Self-Care Activity: may shower Diet: regular Discharge Instructions: Discharge instructions: Take medications as prescribed Please restart your Plavix on SundayNovember 05 New medications prescribed: Cipro antibiotic for UTI please take as directed You are activity as tolerated Monitor blood pressures Avoid social areas, you wear a mask when in social settings Encouraged to continue with yearly vaccinations Return to the emergency department if he developed sudden shortness of breath, chest pain, nausea, vomiting, upset stomach or intractable diarrhea Return to the emergency department if you develop fever greater than 101.5 Follow-up with: Your primary care physician within 1-2 weeks for post hospitalization check up And your urologist Thank you for choosing [facility] for your healthcare needs Patient Instructions: Antibiotic Form, Clopidogrel (By mouth), Pain Management in Older Adults (DC), Interstitial Cystitis (GEN) Stand Alone Forms: General Discharge Information Follow-up/Referrals: Jose Antonio Rao MD [Physician] - 2 Weeks Discharge Medications: Continued rosuvastatin 40 mg tablet 40 mg PO DAILY amlodipine 10 mg tablet 10 mg PO QAM lisinopril 5 mg tablet 5 mg PO QAM carvedilol 12.5 mg tablet 12.5 mg PO BID sertraline 25 mg tablet 25 mg PO QAM metformin 1,000 mg tablet 1,000 mg PO BID ciprofloxacin HCl 500 mg tablet 500 mg PO Q12H 5 Days Qty: 10 0RF Held clopidogrel 75 mg tablet 75 mg PO DAILY Hold Instructions: Discuss resumption with PCP Date of admission: 10/30/24 09:46 Primary Care Provider: SeanOnel Admitting Provider: Kingsley Cochran Attending physician on admission: Kingsley Cochran Condition: Stable Quality VTE Prophylaxis VTE prophylaxis: mechanical ordered Hospitalist MIPS Heart Failure (Exclusion) Patient has history of Heart Transplant or Left Ventricular Assistive Device?: No IF YES, STOP HERE Heart Failure (Qualifier) Patient has current or prior documentation of LVEF less than or equal to 40%, or mod/servere depressed LVSF?: No IF NO, STOP HERE
== END 2024-10-30 16:00 | disposition home or self-care (01) | DRG 726 ==
LOC: ANHED 12:12 → ANH3MEDSUR 13:20
PROVIDERS: Admitting Provider General Practice; Emergency Provider Emergency Medicine; PCP Internal Medicine; Visit Provider Nurse Practitioner Gerontology
DX: N40.0 Benign prostatic hyperplasia without lower urinary tract symptoms (principal); N39.0 Urinary tract infection, site not specified; R31.9 Hematuria, unspecified; I25.10 Atherosclerotic heart disease of native coronary artery without angina pectoris; I10 Essential (primary) hypertension; E11.51 Type 2 diabetes mellitus with diabetic peripheral angiopathy without gangrene; E78.5 Hyperlipidemia, unspecified; G62.9 Polyneuropathy, unspecified; I25.2 Old myocardial infarction; Z79.02 Long term (current) use of antithrombotics/antiplatelets; Z86.73 Personal history of transient ischemic attack (TIA), and cerebral infarction without residual deficits; Z95.5 Presence of coronary angioplasty implant and graft; Z87.891 Personal history of nicotine dependence
CPT/HCPCS: 36415; 51700; 74177; 80053; 81001; 82948; 85025; 85610; 85730; 87086; 96365; 99285; A9270; G0378; J0696; J1815; J7030; Q9967